=== PATIENT | female | born 1970 | race Caucasian/White ===

== ENCOUNTER 2019-06-22 07:26 | Outpatient (CLI) | payer OTHER, SELFPAY ==
[2019-06-22 08:23] LABS: Basophils Absolute Auto 0.1 K/mm3 (0.0-0.1); Basophils Percent Auto 0.7 % (0.2-1.2); Eosinophils Absolute Auto 0.1 K/mm3 (0-0.3); Eosinophils Percent Auto 1.1 % (0-4.4); Hematocrit 41.7 % (37.0-47.0); Hemoglobin 13.9 g/dL (12.0-15.0); Immature Granulocyte Absolute 0.03 K/mm3 (0.00-0.031); Immature Granulocyte Percent A 0.3 % (0-0.5); Lymphocytes Absolute Auto 2.85 K/mm3 (0.9-3.2); Lymphocytes Percent Auto 25.2 % (18.3-44.2); Mean Corpuscular HGB Conc 33.3 g/dl (32-36); Mean Corpuscular Hemoglobin 31.2 pg (26-34); Mean Corpuscular Volume 93.7 fl (80-100); Mean Platelet Volume 10.1 fl (7.4-10.4); Monocytes Absolute Auto 0.5 K/mm3 (0.1-0.6); Monocytes Percent Auto 4.4 % (2.6-8.5); Neutrophils Absolute Auto 7.7 K/mm3 (1.3-6.7); Neutrophils Percent Auto 68.3 % (45.5-73.1); Platelet Count Result 305 k/mm3 (150-375); Red Blood Count 4.45 M/mm3 (4.2-5.4); Red Cell Distribution Width 13.2 % (11.5-14.5); White Blood Count 11.3 K/mm3 (4.5-10.0)
[2019-06-22 08:41] LABS: Alanine Aminotransferase 19 U/L (4-35); Albumin Level 4.8 g/dL (3.5-5.1); Alkaline Phosphatase 51 U/L (38-126); Aspartate Amino Transferase 24 U/L (14-36); Bilirubin,Total 0.5 mg/dL (0.2-1.3); Blood Urea Nitrogen 18 mg/dL (7-17); Carbon Dioxide 25 mmol/L (22-30); Chloride 100 mmol/L (98-107); Cholesterol 204 mg/dL (0-200); Estimated Glomerular Filt Rate > 60; Glucose 101 mg/dL (65-105); HDL Direct 62 mg/dL; Potassium 3.8 mmol/L (3.4-5.0); Sodium 141 mmol/L (137-145); Triglycerides 157 mg/dL (<150)
[2019-06-22 08:52] LABS: LDL Cholesterol Direct 111 mg/dL
[2019-06-22 08:58] LABS: Hemoglobin A1C 5.5 % (<5.7)
[2019-06-22 09:10] LABS: Thyroid Stimulating Hormone 0.997 uIU/mL (0.465-4.680)
[2019-06-22 09:12] LABS: Creatinine Urine 137.9 mg/dL
[2019-06-22 09:17] LABS: Microalbumin Urine Random 9.7 mg/L (0-16.7)
[2019-06-22 09:28] LABS: Vitamin D 25 Hydroxy 41.3 ng/mL
== END 2019-06-22 07:27 | disposition home or self-care (01) ==
PROVIDERS: PCP Internal Medicine; Visit Provider Internal Medicine
DX: F41.9 Anxiety disorder, unspecified (principal); F32.9 Major depressive disorder, single episode, unspecified; I10 Essential (primary) hypertension; R73.01 Impaired fasting glucose; Z79.899 Other long term (current) drug therapy
CPT/HCPCS: 36415; 80053; 80061; 82043; 82306; 83036; 84443; 85025

== ENCOUNTER 2019-09-01 18:57 | Emergency (ER) | payer OTHER, SELFPAY ==
--- NOTE | ~2019-09-01 | XR_ITS ---
EXAMINATION: XR elbow LT min 3V EXAM DATE: 09/01/2019 19:32 INDICATION: No known recent injury provided at this time. Pain of the left elbow. Symptoms one month . TECHNIQUE: Left elbow frontal, lateral with flexion, and oblique projections obtained and reviewed. There is no prior study for comparison. FINDINGS: Left elbow anterior humeral line intact. There are no acute fractures or dislocations callie ntified. There is no subcutaneous gas. The soft tissue is unremarkable. There are no radiopaque f oreign bodies. IMPRESSION: 1. Unremarkable left elbow exam. Reviewed, dictated and finalized at location A.
[2019-09-01 19:08] VITALS: BP 120/69; PULSE 85; RESP 18; TEMP 37.7; O2SAT 99
--- NOTE | 2019-09-01 19:09 | ED.GENADULT ---
HPI - General Adult General Chief complaint: Extremity Injury, Upper Stated complaint: elbow Source: patient and RN notes reviewed Mode of arrival: ambulatory Limitations: no limitations History of Present Illness HPI narrative: This is a 49 years old female presents to the office for an evaluation of left elbow pain for 1 month. Pain is getting worse over time with tingling and numbness in her fingers at times. Pain is worse when she moves her arm however it feels better when she flexes at her elbow and bring it close to her chest. Denies any injury or trauma that she recalls. Denies previous injury or surgery. She has been trying many [id number]-tiy-[id number] including her leftover prescription [place] for pain with no relief. 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 She is right-hand dominant. Related Data Home Medications Medication Instructions Recorded Confirmed lisinopril-hydrochlorothiazide 1 tablet DAILY 05/22/19 05/22/19 albuterol sulfate 90 mcg/actuation 2 puff INHALATION Q4-6H PRN gm 06/17/19 aerosol inhaler amitriptyline 10 mg tablet 10 mg PO DAILY tablet 06/17/19 esomeprazole magnesium 20 mg 20 mg PO DAILY 06/17/19 capsule,delayed release loratadine 10 mg capsule 10 mg PO DAILY 06/17/19 multivitamin 1 tablet PO DAILY 06/17/19 simethicone 125 mg capsule 125 mg PO DAILY PRN 06/17/19 Allergies Allergy/AdvReac Type Severity Reaction Status Date / Time aspirin Allergy Unknown Swelling Verified 06/20/19 11:35 Review of Systems Review of Systems: Narrative: CONSTITUTIONAL: Denies feeling ill CARDIOVASCULAR: Denies chest pain RESPIRATORY: Denies dyspnea GASTROINTESTINAL: Denies nausea, vomiting SKIN: Denies rash/skin lesions MUSCULOSKELETAL: Reports left elbow pain especially with movenment; pain radiated up and down her arm. NEUROLOGIC: Reports tingling in all of her fingers at times. [facility], [facility] Past Medical History Medical History Anxiety Arthritis Bronchitis Chronic back pain GERD (gastroesophageal reflux disease) Hypertension IBS (irritable bowel syndrome) Kidney stones Polycystic ovarian disease Seasonal allergies Strain of right gastrocnemius muscle (~02/2019) Surgical History Surgical History History of cholecystectomy History of hysterectomy Family History Family History Mother Patient's mother is in good health Family history of cardiovascular disease Family history of arthritis Family history of atrial fibrillation Father Patient's father is in good health Family history of lymphoma Hypertension Family history of cardiovascular disease Acute myocardial infarction Family history of arthritis Social History Social History Smoking status: Former smoker Alcohol intake: never Comments At time of signature, I agree with nursing past medical, surgical, social and family history. There is no relevant family history pertinent to the presenting complaint. Exam Narrative: Exam Narrative: GENERAL: This is a well-nourished, well-developed patient, in no apparent distress. NEURO: awake, alert, and oriented to person, place and time. There were no obvious focal neurologic abnormalities. EXTREMITIES: The left shoulder is without obvious asymmetry or deformity when comparing to right shoulder. No surface trauma, ecchymosis, crepitus. No bony deformity of the humerus head. No erythema, warmth, swelling to palpate. Nontender to palpate over the clavicle, A to C joint, acromion, scapula, or humeral head. Nontender to palpations of the bicipital groove or soft tissue. Nontender to palpation of of the muscles of the sternocleidomastoid, pectoris, biceps/triceps, deltoid, trapezius, rhomboid, latissimus dorsi is, or rotator cuff. No pain or limitation with active or passive abdu
== END 2019-09-01 20:09 | disposition home or self-care (01) ==
PROVIDERS: Emergency Provider Nurse Practitioner; PCP Internal Medicine
DX: M25.522 Pain in left elbow (principal); F41.9 Anxiety disorder, unspecified; M19.90 Unspecified osteoarthritis, unspecified site; K21.9 Gastro-esophageal reflux disease without esophagitis; I10 Essential (primary) hypertension; K58.9 Irritable bowel syndrome, unspecified; Z87.442 Personal history of urinary calculi; E28.2 Polycystic ovarian syndrome; Z87.891 Personal history of nicotine dependence
CPT/HCPCS: 73080; 99213; A4565; G0463

== ENCOUNTER 2019-10-07 09:26 | Outpatient (CLI) | payer OTHER, SELFPAY ==
[2019-10-07 10:04] LABS: Blood Urea Nitrogen 12 mg/dL (7-17); Carbon Dioxide 26 mmol/L (22-30); Chloride 105 mmol/L (98-107); Creatine Kinase 74 U/L (30-135); Estimated Glomerular Filt Rate > 60; Glucose 103 mg/dL (65-105); Potassium 3.5 mmol/L (3.4-5.0); Sodium 137 mmol/L (137-145)
[2019-10-07 12:17] LABS: Erythrocyte Sedimentation Rate 24 mm/hr (0-20)
== END 2019-10-07 09:27 | disposition home or self-care (01) ==
PROVIDERS: PCP Internal Medicine; Visit Provider Internal Medicine
DX: M77.9 Enthesopathy, unspecified (principal)
CPT/HCPCS: 36415; 80048; 82550; 85652; 86038; 86141

== ENCOUNTER 2019-10-09 09:47 | Emergency (ER) | payer OTHER, SELFPAY ==
--- NOTE | ~2019-10-09 | XR_ITS ---
XR abdomen/kub 1V 10/09/2019 10:32 INDICATION: Flank pain TECHNIQUE: KUB COMPARISON: None FINDINGS: Bowel gas pattern is normal. There is no evidence of free air, mass, organomegaly, ascites or obstruction. There are multiple pelvic calcifications. Distal ureteral stone cannot be excluded. The bones appear intact. IMPRESSION: 1: Pelvic calcifications. Distal ureteral stone not excluded.. Reviewed, dictated and finalized at location A.
--- NOTE | 2019-10-09 10:01 | ED.GENADULT ---
HPI - General Adult General Chief complaint: Urogenital-Female Stated complaint: uti Time Seen by Provider: 10/09/19 10:12 Source: patient Mode of arrival: ambulatory Limitations: no limitations History of Present Illness HPI narrative: 49-year-old female patient presents to the [facility] with complaints of urinary symptoms that started last night. Patient states that she noticed that she had increase in urgency of urination last night. Patient states about 2:00 in the morning she noticed some pink-tinged urine. Patient states that now is when she bleeds and full on bright red blood. Patient states that she is having some suprapubic pain, pain with urination, as well as some right-sided flank pain. Patient does have history of kidney stones but states her last kidney stones was probably about over a year ago. Patient denies any fevers, nausea, vomiting or diarrhea. Patient denies taking anything for pain prior to arrival. Related Data Home Medications Medication Instructions Recorded Confirmed esomeprazole magnesium 20 mg 20 mg PO DAILY 06/17/19 10/09/19 capsule,delayed release loratadine 10 mg capsule 10 mg PO DAILY 06/17/19 10/09/19 multivitamin 1 tablet PO DAILY 06/17/19 10/09/19 simethicone 125 mg capsule 125 mg PO DAILY PRN 06/17/19 10/09/19 Allergies Allergy/AdvReac Type Severity Reaction Status Date / Time aspirin Allergy Unknown Swelling Verified 10/09/19 10:12 Review of Systems Review of Systems: Narrative: CONSTITUTIONAL: Denies fever, chills, or sweats. EYES: Denies visual changes, redness, or discharge. ENT: Denies rhinorrhea, congestion, sore throat, or otalgia. CARDIOVASCULAR: Denies chest pain, palpitations, or edema. RESPIRATORY: Denies cough or dyspnea. GASTROINTESTINAL: Denies abdominal pain, nausea, vomiting, or diarrhea. GENITOURINARY: Positive dysuria, positive hematuria. Positive pain with urination, positive urinary frequency. Positive right-sided flank pain SKIN: Denies rash or itching. MUSCULOSKELETAL: Denies back pain, joint pain, or myalgia. NEUROLOGIC: Denies headache, numbness, or weakness. PSYCHIATRIC: Denies anxiety or depression. [facility] Past Medical History Medical History Anxiety Arthritis Bronchitis Chronic back pain GERD (gastroesophageal reflux disease) Hypertension IBS (irritable bowel syndrome) Kidney stones Polycystic ovarian disease Seasonal allergies Strain of right gastrocnemius muscle (~02/2019) Surgical History Surgical History History of cholecystectomy History of hysterectomy Family History Family History Mother Patient's mother is in good health Family history of cardiovascular disease Family history of arthritis Family history of atrial fibrillation Father Patient's father is in good health Family history of lymphoma Hypertension Family history of cardiovascular disease Acute myocardial infarction Family history of arthritis Social History Social History Smoking status: Former smoker Alcohol intake: never Gender identity (if verbalized by the patient): Female Comments At the time of my signature I agree with nursing past medical history, surgical, social, and family history. There is no relevant family history pertinent to the presenting complaint. Exam Narrative: Exam Narrative: GENERAL: Well-appearing, well-nourished, and in no acute distress. HEAD: Normocephalic, atraumatic. EYES: PERRLA and EOMI. ENT: Nares clear, no rhinorrhea or epistaxis. Mucous membranes moist. NECK: Supple. No lymphadenopathy CHEST: Clear to auscultation. No respiratory distress. HEART: Regular rate and rhythm. No murmur heard. Normal peripheral pulses. ABDOMEN: Soft, flat, nondistended. No guarding, rebound tenderness, or rigid. No puls
[2019-10-09 10:11] VITALS: BP 136/77; PULSE 90; RESP 16; TEMP 36.9; O2SAT 100
== END 2019-10-09 11:00 | disposition home or self-care (01) ==
PROVIDERS: Emergency Provider Nurse Practitioner Family; PCP Internal Medicine
DX: N20.0 Calculus of kidney (principal); N30.01 Acute cystitis with hematuria; Z87.442 Personal history of urinary calculi; I10 Essential (primary) hypertension
CPT/HCPCS: 74018; 81003; 87077; 87086; 87088; 87186; 99213; G0463

== ENCOUNTER 2019-10-25 07:33 | Outpatient (CLI) | payer OTHER, SELFPAY ==
[2019-10-25 08:50] LABS: Rheumatoid Factor < 8.6 IU/ML (<12)
[2019-10-28 21:59] LABS: Anti Cyclic Citrullinated Pept <16 Units (<20)
== END 2019-10-25 07:34 | disposition home or self-care (01) ==
LOC: ANHLAB 07:34
PROVIDERS: PCP Internal Medicine; Visit Provider Internal Medicine
DX: M19.90 Unspecified osteoarthritis, unspecified site (principal)
CPT/HCPCS: 36415; 86200; 86430

== ENCOUNTER 2019-11-14 20:14 | Emergency (ER) | payer OTHER, SELFPAY ==
[2019-11-14 20:23] VITALS: BP 159/92; PULSE 107; RESP 18; TEMP 36.9; O2SAT 97
--- NOTE | 2019-11-14 21:19 | ED.GENADULT ---
HPI - General Adult General Chief complaint: Wound/Laceration Stated complaint: thumb lac Time Seen by Provider: 11/14/19 20:56 Source: patient Mode of arrival: ambulatory Limitations: no limitations History of Present Illness HPI narrative: Patient is a 49-year-old female who presents with laceration of the base of the thumb cut the thumb with a kitchen knife while cooking notes mild aching pain worse with touch and activity is unsure as to tetanus status denies radicular symptoms or paresthesias Related Data Home Medications Medication Instructions Recorded Confirmed esomeprazole magnesium 20 mg 20 mg PO DAILY 06/17/19 10/09/19 capsule,delayed release loratadine 10 mg capsule 10 mg PO DAILY 06/17/19 10/09/19 multivitamin 1 tablet PO DAILY 06/17/19 10/09/19 simethicone 125 mg capsule 125 mg PO DAILY PRN 06/17/19 10/09/19 Allergies Allergy/AdvReac Type Severity Reaction Status Date / Time aspirin Allergy Unknown Swelling Verified 11/14/19 20:25 Review of Systems Review of Systems: Narrative: CONSTITUTIONAL: Denies fever, chills, or sweats. SKIN: Laceration thumb MUSCULOSKELETAL: Denies joint pain, or myalgia. NEUROLOGIC: Denies numbness,tingling PMFSH Past Medical History Medical History Anxiety Arthritis Bronchitis Chronic back pain GERD (gastroesophageal reflux disease) Hypertension IBS (irritable bowel syndrome) Kidney stones Polycystic ovarian disease Seasonal allergies Strain of right gastrocnemius muscle (~02/2019) Surgical History Surgical History History of cholecystectomy History of hysterectomy Social History Social History Smoking status: Former smoker Alcohol intake: never Gender identity (if verbalized by the patient): Female Exam Narrative: Exam Narrative: GENERAL: Well-appearing, well-nourished, and in no acute distress. HEAD: Normocephalic, atraumatic. EYES: PERRLA and EOMI. ENT: Nares clear, no rhinorrhea or epistaxis. Mucous membranes moist. EXTREMITIES: Normal range of motion. No edema. SKIN: Warm, dry, no rash. 1 cm laceration of the base of the left thumb NEURO: No focal deficits. Alert and oriented x3. Neurovascularly intact. Capillary refill less than 2 seconds PSYCH: Normal mood and affect. Course Course Emergency Course: Patient in the room in no distress aware of case findings treatment plan and diagnosis Vital Signs Vital signs: Vital Signs Temperature 98.4 F 11/14/19 20:23 Pulse Rate 107 H 11/14/19 20:23 Respiratory Rate 18 11/14/19 20:23 Blood Pressure 159/92 H 11/14/19 20:23 Pulse Oximetry 97 11/14/19 20:23 Temperature 98.4 F 11/14/19 20:23 Pulse Rate 107 H 11/14/19 20:23 Respiratory Rate 18 11/14/19 20:23 Blood Pressure 159/92 H 11/14/19 20:23 Pulse Oximetry 97 11/14/19 20:23 Procedures Laceration Laceration 1: Date: 11/14/19 Time: 21:21 Site: upper extremity Side (If applicable): left Size (cm): 1.5 Description: linear Depth: simple, single layer Local Anesthetic: lidocaine 1% Pre-repair: wound explored, irrigated and irrigated extensively ====== Skin Level ====== Skin layer closed with: nylon Size (cm): 5-0 Number of sutures: 2 Technique: simple, interrupted ====== Subcutaneous Layer ====== ====== Muscle Layer ====== ====== Tendon Layer ====== Medical Decision Making MDM Narrative Medical decision making narrative: Patients injury or pain is consistent with musculoskeletal etiology. No signs of neurological or vascular compromise on exam. Compartments and tisues are soft without signs of compartment syndrome. Pain is felt appropriate for further evaluation on an outpatient basis. Vital Signs Vital Signs: Vital Signs Temper
[2019-11-14] MEDS: TETANUS,DIPHTHERIA,AC PERTUSSIS ADULT (0.5 ML) BOOSTRIX (21:44)
== END 2019-11-14 21:47 | disposition home or self-care (01) ==
PROVIDERS: Emergency Provider Emergency Medicine; PCP Internal Medicine
DX: S61.012A Laceration without foreign body of left thumb without damage to nail, initial encounter (principal); F41.9 Anxiety disorder, unspecified; M19.90 Unspecified osteoarthritis, unspecified site; K21.9 Gastro-esophageal reflux disease without esophagitis; G89.29 Other chronic pain; I10 Essential (primary) hypertension; W26.0XXA Contact with knife, initial encounter; Z23 Encounter for immunization
CPT/HCPCS: 12001; 90471; 90715; 99282

== ENCOUNTER 2019-11-25 14:09 | Outpatient (CLI) | payer OTHER, SELFPAY ==
--- NOTE | ~2019-11-25 | XR_ITS ---
XR foot LT standing 2V DATE: 11/25/2019 15:31 INDICATION: Polyarticular osteoarthritis TECHNIQUE: Weightbearing AP and lateral views COMPARISON: None FINDINGS: Mild plantar calcaneal enthesopathy. No fracture, dislocation, periosteal reaction or bone destruction. IMPRESSION: Mild plantar calcaneal enthesopathy Reviewed, dictated and finalized at location A.
--- NOTE | ~2019-11-25 | XR_ITS ---
XR lumbar spine 2-3V DATE: 11/25/2019 15:31 INDICATION: Generalized low back pain. Osteoarthritis. TECHNIQUE: AP, lateral and coned lateral lumbosacral views COMPARISON: None FINDINGS: There is mild dextro scoliosis of the lower thoracic and lumbar spine. There is a transitional lumbosacral vertebra sacralization on the left. No fracture or bone destruction is evident. The included lower thoracic and lumbar pedicles are intac t. There is minimal degenerative spurring of the lumbar spine. Lumbar interspaces are relatively pres erved. The sacroiliac joints appear normal. Surgical clips overlie the right upper quadrant, likely due to cholecystectomy. IMPRESSION: Transitional lumbosacral vertebra; this may be a source of chronic low back pain Mild dextro scoliosis Minimal degenerative spurring Reviewed, dictated and finalized at location A.
--- NOTE | ~2019-11-25 | XR_ITS ---
XR foot RT standing 2V DATE: 11/25/2019 15:30 INDICATION: Foot pain. Osteoarthritis TECHNIQUE: Weightbearing AP and lateral views COMPARISON: None FINDINGS: There is hypertrophic bone formation between the bases of the first and second metatarsal b ones. There is mild osteoarthritis at the first metatarsophalangeal joint. No fracture, dislocation, periosteal reaction or bone destruction. IMPRESSION: Mild osteophyte is at the first metatarsophalangeal joint Focal hyperostosis between the bases of the first and second metatarsal bones Reviewed, dictated and finalized at location A.
--- NOTE | ~2019-11-25 | XR_ITS ---
EXAMINATION: XR hand BI arthritis min 3V DATE: 11/25/2019 15:31 INDICATION: Unspecified osteoarthritis, unspecified site. TECHNIQUE: 4 views of right hand and 4 views of left hand on 7 radiographs were obtained. COMPARISON: None. FINDINGS: RIGHT HAND: Bone alignment is normal. No fracture. There is mild osteoarthritis of first interphalang eal joint and third distal interphalangeal joint. LEFT HAND: Bone alignment is normal. No fracture. Joint spaces are well maintained. IMPRESSION: 1. Mild polyarticular osteoarthritis. Reviewed, dictated and finalized at location A.
[2019-11-25 15:12] LABS: Basophils Absolute Auto 0.1 K/mm3 (0.0-0.1); Basophils Percent Auto 0.6 % (0.2-1.2); Eosinophils Absolute Auto 0.2 K/mm3 (0-0.3); Eosinophils Percent Auto 2.1 % (0-4.4); Hematocrit 36.7 % (37.0-47.0); Hemoglobin 12.4 g/dL (12.0-15.0); Immature Granulocyte Absolute 0.04 K/mm3 (0.00-0.031); Immature Granulocyte Percent A 0.4 % (0-0.5); Lymphocytes Percent Auto 25.5 % (18.3-44.2); Mean Corpuscular HGB Conc 33.8 g/dl (32-36); Mean Corpuscular Hemoglobin 31.7 pg (26-34); Mean Corpuscular Volume 93.9 fl (80-100); Mean Platelet Volume 9.7 fl (7.4-10.4); Monocytes Absolute Auto 0.6 K/mm3 (0.1-0.6); Neutrophils Absolute Auto 6.7 K/mm3 (1.3-6.7); Neutrophils Percent Auto 65.4 % (45.5-73.1); Platelet Count Result 308 k/mm3 (150-375); Red Blood Count 3.91 M/mm3 (4.2-5.4); Red Cell Distribution Width 12.9 % (11.5-14.5); White Blood Count 10.2 K/mm3 (4.5-10.0)
[2019-11-25 15:34] LABS: Alanine Aminotransferase 16 U/L (4-35); Albumin Level 4.4 g/dL (3.5-5.1); Alkaline Phosphatase 54 U/L (38-126); Aspartate Amino Transferase 26 U/L (14-36); Bilirubin,Total 0.1 mg/dL (0.2-1.3); Blood Urea Nitrogen 14 mg/dL (7-17); Calcium 9.5 mg/dL (8.4-10.2); Carbon Dioxide 25 mmol/L (22-30); Chloride 102 mmol/L (98-107); Estimated Glomerular Filt Rate > 60; Glucose 99 mg/dL (65-105); Potassium 3.7 mmol/L (3.4-5.0); Sodium 136 mmol/L (137-145); Uric Acid 4.8 mg/dL (2.5-7.5)
[2019-11-25 15:48] LABS: Erythrocyte Sedimentation Rate 36 mm/hr (0-20)
[2019-11-30 04:21] LABS: Thyroglobulin 5.1 ng/mL (2.8-40.9); Thyroglobulin Antibodies <1 IU/mL (<=1); Thyroid Peroxidase Antibodies 3 IU/mL (<9)
[2019-11-30 11:53] LABS: Angiotensin Converting Enzyme 11 U/L (9-67)
[2019-11-30 23:31] LABS: SS-A <1.0; SS-B <1.0
[2019-12-01 21:10] LABS: ANCA Screen Negative (Negative); Myeloperoxidase Ab <1.0 AI (<1.0); Proteinase-3 Ab <1.0 AI (<1.0); S cerevisiae Ab (IgA) 12.8 U (<=20.0); S cerevisiae Ab (IgG) 14.8 U (<=20.0)
[2019-12-26 14:19] LABS: SM Antibody <1.0
[2019-12-26 14:20] LABS: SM/RNP Antibody <1.0
== END 2019-11-25 14:10 | disposition home or self-care (01) ==
PROVIDERS: PCP Internal Medicine; Visit Provider Internal Medicine
DX: M15.9 Polyosteoarthritis, unspecified (principal); M47.819 Spondylosis without myelopathy or radiculopathy, site unspecified; M77.32 Calcaneal spur, left foot; M85.871 Other specified disorders of bone density and structure, right ankle and foot; M53.87 Other specified dorsopathies, lumbosacral region; M41.86 Other forms of scoliosis, lumbar region
CPT/HCPCS: 36415; 72100; 73130; 73620; 80053; 82164; 84432; 84550; 85025; 85652; 86021; 86140; 86225; 86235; 86376; 86671; 86800

== ENCOUNTER 2019-12-06 01:50 | Emergency (ER) | payer OTHER, SELFPAY ==
--- NOTE | ~2019-12-06 | CT_ITS ---
EXAMINATION: CT abdomen pelvis wo con DATE: 12/06/2019 02:36 INDICATION: Bilateral flank pain, hematuria, difficulty urinating. History of kidney stones. TECHNIQUE: Computed tomography (CT) of the abdomen and pelvis was performed without intravenous contr ast. Automated exposure control and iterative reconstruction technique were employed. Exam dose: 193 .28 mGy-cm total exam DLP. COMPARISON: 11/02/2018 CT abdomen pelvis FINDINGS: The lung bases are clear. Normal heart size. No pericardial or pleural effusion. Status post cholecystectomy. The liver, spleen, pancreas, adrenal glands and kidneys are unremarkable except for a 2 mm lower pole right renal calculus. No bile duct or pancreatic duct dilatation. The u rinary bladder appears normal. Status post hysterectomy. Mild colonic diverticulosis; no CT evidence of diverticulitis. No bowel obstruction, bowel wall thick ening, pneumatosis or free peritoneal free air. Normal caliber of the abdominal aorta. No intraperitoneal or retroperitoneal or pelvic mass lesion or adenopathy or ascites. Transitional lumbosacral vertebra. IMPRESSION: Nonobstructing 2 mm lower pole right renal calculus Status post cholecystectomy Status post hysterectomy Reviewed, dictated and finalized at Location [facility]. Reviewed, dictated and finalized at location A.
[2019-12-06 01:53] VITALS: BP 150/101; PULSE 115; RESP 19; TEMP 36.5; O2SAT 98
--- NOTE | 2019-12-06 02:05 | ED.ABDPAIN ---
HPI - Abdominal Pain General Chief Complaint: Abdominal Pain Stated Complaint: Kidney stone Time Seen by Provider: 12/06/19 01:56 History of Present Illness HPI narrative: Pain in the lower back and abdomen since last evening. Associated with hematuria and dysuria. She believes that she has a kidney stone. She says that she had similar symptoms a month ago and had one then. On chart review she never had the diagnosis confirmed at that time, she had a calcification on a KUB and kidney stone could not be ruled out. Related Data Home Medications Medication Instructions Recorded Confirmed esomeprazole magnesium 20 mg 20 mg PO DAILY 06/17/19 11/22/19 capsule,delayed release loratadine 10 mg capsule 10 mg PO DAILY 06/17/19 11/22/19 multivitamin 1 tablet PO DAILY 06/17/19 11/22/19 simethicone 125 mg capsule 125 mg PO DAILY PRN 06/17/19 11/22/19 Allergies Allergy/AdvReac Type Severity Reaction Status Date / Time aspirin Allergy Unknown Swelling Verified 11/22/19 11:13 Review of Systems Review of Systems: All systems reviewed & are unremarkable except as noted in HPI and below Constitutional: Constitutional: Denies fever(s) Cardiovascular: Cardiovascular: Denies chest pain Respiratory: Respiratory: Denies dyspnea Gastrointestinal: Gastrointestinal: Reports abdominal pain Genitourinary: Genitourinary: Reports hematuria, Reports nocturia and Reports dysuria Musculoskeletal: Musculoskeletal: Reports back pain Neurologic: Denies weakness [facility] Past Medical History Medical History Anxiety Arthritis Bronchitis Chronic back pain GERD (gastroesophageal reflux disease) Hypertension IBS (irritable bowel syndrome) Inflammatory arthritis (~2018) Kidney stones Polycystic ovarian disease Seasonal allergies Strain of right gastrocnemius muscle (~02/2019) Surgical History Surgical History History of cholecystectomy History of hysterectomy Family History Family History Mother Patient's mother is in good health Family history of cardiovascular disease Family history of arthritis Family history of atrial fibrillation Father Patient's father is in good health Family history of lymphoma Hypertension Family history of cardiovascular disease Acute myocardial infarction Family history of arthritis Social History Social History Smoking status: Former smoker Alcohol intake: never Gender identity (if verbalized by the patient): Female Exam Const: General: healthy appearing, no acute distress and alert Orientation/consciousness: patient oriented x3 HENMT: Head: normal to inspection Neck: Neck: normal visual inspection and no lymphadenopathy Chest: Chest palpation & inspection: no tenderness Resp: Effort & Inspection: normal respiratory effort Auscultation: clear to auscultation bilaterally, no rales, no rhonchi and no wheezes Cardio: Jugular venous distension: no JVD Rate: regular rate Rhythm: regular rhythm Heart sounds: no murmurs GI: Inspection: non-distended GI Palp: Yes Soft to palpation and Yes Tenderness to palpation present (GI) Skin: General skin exam: normal color Neuro: General: patient oriented x3 and moves all extremities Speech: normal speech Extrem: General: no edema Psych: Appearance: well kempt Affect: normal affect Course Vital Signs Vital signs: Vital Signs Temperature 36.5 C 12/06/19 01:53 Pulse Rate 115 H 12/06/19 01:53 Respiratory Rate 19 12/06/19 01:53 Blood Pressure 150/101 H 12/06/19 01:53 Pulse Oximetry 98 12/06/19 01:53 Temperature 36.8 C 12/06/19 03:09 Pulse Rate 81 12/06/19 05:05 Respiratory Rate 20 12/06/19 05:05 Blood Pressure 125/82 12/06/19 05:05 Pulse Oximetry 100 12/06/19 05:05
[2019-12-06 02:17] LABS: Add Urine Microscopic? YES; Appearance Urine Cloudy (Clear); Bilirubin Urine Negative (Negative); Blood Urine 3+ (Negative); Glucose Urine UA 1+ mg/dL (Negative); Ketones Urine Negative (Negative); Leukocyte Esterase Ur 1+ LEU/UL (Negative); Nitrate Urine Negative (Negative); Protein Urine 2+ mg/dL (Negative); RBC Urine >75 /hpf (0-2); Specific Grav Ur 1.024 (1.001-1.035); Squamous Epithelial Cell Urine Many /hpf (Few); Urobilinogen Urine Negative mg/dL (<2.0); WBC Clumps Urine Present /HPF; WBC Urine 16-20 /hpf
[2019-12-06 02:19] LABS: Color Urine Dark Red (Yellow)
[2019-12-06 02:23] LABS: Basophils Absolute Auto 0.1 K/mm3 (0.0-0.1); Basophils Percent Auto 0.4 % (0.2-1.2); Eosinophils Absolute Auto 0.3 K/mm3 (0-0.3); Eosinophils Percent Auto 1.4 % (0-4.4); Immature Granulocyte Absolute 0.09 K/mm3 (0.00-0.031); Immature Granulocyte Percent A 0.5 % (0-0.5); Lymphocytes Absolute Auto 2.58 K/mm3 (0.9-3.2); Lymphocytes Percent Auto 13.6 % (18.3-44.2); Mean Corpuscular HGB Conc 34.2 g/dl (32-36); Mean Corpuscular Hemoglobin 32.2 pg (26-34); Mean Corpuscular Volume 94.1 fl (80-100); Mean Platelet Volume 9.3 fl (7.4-10.4); Monocytes Absolute Auto 0.8 K/mm3 (0.1-0.6); Monocytes Percent Auto 4.4 % (2.6-8.5); Neutrophils Absolute Auto 15.1 K/mm3 (1.3-6.7); Neutrophils Percent Auto 79.7 % (45.5-73.1); Platelet Count Result 346 k/mm3 (150-375); Red Blood Count 4.04 M/mm3 (4.2-5.4); Red Cell Distribution Width 12.5 % (11.5-14.5); White Blood Count 18.9 K/mm3 (4.5-10.0)
[2019-12-06 02:58] LABS: Alanine Aminotransferase 26 U/L (4-35); Albumin Level 4.4 g/dL (3.5-5.1); Alkaline Phosphatase 54 U/L (38-126); Anion Gap 11.3 mmol/L (7-16); Aspartate Amino Transferase 30 U/L (14-36); Bilirubin,Total 0.3 mg/dL (0.2-1.3); Blood Urea Nitrogen 14 mg/dL (7-17); Calcium 9.5 mg/dL (8.4-10.2); Carbon Dioxide 26 mmol/L (22-30); Chloride 103 mmol/L (98-107); Estimated Glomerular Filt Rate > 60; Glucose 110 mg/dL (65-105); Lipase 97 U/L (23-300); Potassium 3.3 mmol/L (3.4-5.0); Sodium 137 mmol/L (137-145)
[2019-12-06 03:09] VITALS: BP 141/96; PULSE 96; RESP 18; TEMP 36.8; O2SAT 100
[2019-12-06 03:15] VITALS: BP 137/91; PULSE 94; RESP 18; O2SAT 100
[2019-12-06] MEDS: SODIUM CHLORIDE 0.9% IV 1,000 ML 999 ML IV CONT (03:15)
[2019-12-06] MEDS: NITROFURANTOIN MONOHYD MACROCR 100 MG CAP PO (04:07)
[2019-12-06] MEDS: KETOROLAC 30 MG/ML VIAL (*BKC) IV PUSH (04:08)
[2019-12-06] MEDS: PHENAZOPYRIDINE HCL 100 MG TABLET 200 MG PO (04:19)
[2019-12-06 05:05] VITALS: BP 125/82; PULSE 81; RESP 20; O2SAT 100
== END 2019-12-06 05:05 | disposition home or self-care (01) ==
PROVIDERS: Emergency Provider Emergency Medicine; PCP Internal Medicine
DX: N30.01 Acute cystitis with hematuria (principal); M19.90 Unspecified osteoarthritis, unspecified site; K21.9 Gastro-esophageal reflux disease without esophagitis; I10 Essential (primary) hypertension; K58.9 Irritable bowel syndrome, unspecified; Z87.442 Personal history of urinary calculi; E28.2 Polycystic ovarian syndrome; Z87.891 Personal history of nicotine dependence
CPT/HCPCS: 36415; 74176; 80053; 81001; 81025; 83690; 85025; 87077; 87086; 87088; 87186; 96361; 96374; 96375; 99284; A9270; J1885; J3010; J7030

== ENCOUNTER 2020-03-30 08:26 | Emergency (ER) | payer OTHER, SELFPAY ==
[2020-03-30] VITALS (7 sets, daily range): BP systolic 105–130; BP diastolic 64–86; PULSE 84–126; RESP 12–18; TEMP 36.6; O2SAT 95–100
--- NOTE | ~2020-03-30 | CT_ITS ---
EXAMINATION: CT abdomen pelvis w con EXAM DATE: 03/30/2020 10:53 INDICATION: Lower abdominal pain. Nausea and vomiting. TECHNIQUE: Spiral CT of the abdomen and pelvis was performed following intravenous injection of 100 m L Omnipaque 350. Axial, coronal and sagittal images were reviewed. The dose-length product (DLP) fo r this examination was 371.52 mGy-cm. The exposure was tailored according to patient size (auto mA e xposure control), and iterative reconstruction (ASIR) was used as additional dose reduction technique . Comparison is made to prior examination from 12/06/2019. FINDINGS: The liver, spleen, adrenal glands and pancreas are unremarkable. There are cholecystectomy clips. Portal and splenic veins are patent. Kidneys enhance symmetrically. There is no hydronephr osis. Probable 2 mm right inferior calyceal stone. The uterus is not identified and has likely been surgically resected. The ovaries are unremarkable. The bladder is unremarkable. There is no retrope ritoneal or pelvic lymphadenopathy. The appendix is normal. The stomach and small bowel are unremarkable. There is colonic fluid, corre late for diarrhea. There is mild scattered colonic diverticulosis. There is no adjacent inflammatory change to suggest diverticulitis. No free intraperitoneal gas. The heart is normal in size. Ther e are no pericardial or pleural effusions. The lung bases are unremarkable. There are no osteoblast ic or osteolytic lesions identified. IMPRESSION: 1. Colonic fluid, correlate for diarrhea. 2. Probable punctate right nephrolithiasis. 3. No acute finding Reviewed, dictated and finalized at location A. [employer]ING [employer] W[employer]ER
--- NOTE | 2020-03-30 09:03 | ED.NAVMDI ---
HPI - Nausea/Vomiting/Diarrhea General Chief complaint: Nausea/Vomiting/Diarrhea Stated complaint: diarrhea/abd pain Time Seen by Provider: 03/30/20 08:35 Source: patient Mode of arrival: ambulatory Limitations: no limitations History of Present Illness HPI Narrative: This patient is a 50 year old female with history of IBS who presents for evaluation of diarrhea and mid abdominal pain. She states she developed watery diarrhea this morning, and she has had 4 episodes. She denies any blood in her stool. She reports severe constant mid abdominal cramping today. She also noticed intermittent left upper abdominal cramping 2 days ago. She has not taken anything for her symptoms. She denies fever, chills, vomiting. She denies any sick contacts or recent antibiotic use. MD elicited complaint: diarrhea and abdominal pain Related Data Home Medications Medication Instructions Recorded Confirmed esomeprazole magnesium 20 mg 20 mg PO DAILY 06/17/19 03/06/20 capsule,delayed release loratadine 10 mg capsule 10 mg PO DAILY 06/17/19 03/06/20 multivitamin 1 tablet PO DAILY 06/17/19 03/06/20 simethicone 125 mg capsule 125 mg PO DAILY PRN 06/17/19 03/06/20 Allergies Allergy/AdvReac Type Severity Reaction Status Date / Time aspirin Allergy Unknown Swelling Verified 03/30/20 08:37 Review of Systems Review of Systems: All systems reviewed & are unremarkable except as noted in HPI and below Constitutional: Constitutional: Denies chills and Denies fever(s) Gastrointestinal: Gastrointestinal: Reports abdominal pain, Reports diarrhea, Reports nausea and Denies vomiting Genitourinary: Genitourinary: Denies dysuria Musculoskeletal: Musculoskeletal: Denies back pain [facility] Past Medical History Medical History (Updated 03/30/20 @ 12:34 by Shellie Hale MD) Anxiety Arthritis Bronchitis Chronic back pain GERD (gastroesophageal reflux disease) Hypertension IBS (irritable bowel syndrome) Inflammatory arthritis (~2018) Kidney stones Polycystic ovarian disease Seasonal allergies Strain of right gastrocnemius muscle (~02/2019) Surgical History Surgical History History of cholecystectomy History of hysterectomy Family History Family History Mother Patient's mother is in good health Family history of cardiovascular disease Family history of arthritis Family history of atrial fibrillation Father Patient's father is in good health Family history of lymphoma Hypertension Family history of cardiovascular disease Acute myocardial infarction Family history of arthritis Social History Social History Smoking status: Former smoker Alcohol intake: never Gender identity (if verbalized by the patient): Female Exam Const: General: alert Orientation/consciousness: patient oriented x3 HENMT: Head: atraumatic Face and sinus: face symmetric Eyes: EOM: EOMs intact bilaterally Resp: Effort & Inspection: normal respiratory effort and no retractions Auscultation: clear to auscultation bilaterally GI: GI Palp: Yes Soft to palpation, Yes Tenderness to palpation present (GI) (Diffuse), No Guarding due to palpation present (GI) and No Rigid due to palpation Auscultation: normal bowel sounds Skin: General skin exam: normal color Rashes: no rashes Neuro: General: patient oriented x3 and moves all extremities Extrem: General: normal to inspection Course Reevaluation(s) Reevaluation #1: I discussed with patient labs and CT . Date: 03/30/20 Time: 12:31 Vital Signs Vital signs: Vital Signs Temperature 98 F 03/30/20 08:34 Pulse Rate 123 H 03/30/20 08:34 Respiratory Rate 18 03/30/20 08:34 Blood Pressure 130/85 03/30/20 08:34 Pulse Oximetry 99 03/30/20 08:34 Temperature 98 F 03/30/20 09:36 Pulse Rate 84 03/30/20 12:56
[2020-03-30] MEDS: ONDANSETRON INJ 4 MG/2 ML VIAL IV PUSH (09:06)
[2020-03-30] MEDS: SODIUM CHLORIDE 0.9% IV 1,000 ML 999 ML IV CONT (09:06)
[2020-03-30] MEDS: MORPHINE SULFATE (*CRX) 2 MG/ML INJ IV PUSH (09:06)
[2020-03-30 09:14] LABS: Basophils Absolute Auto 0.1 K/mm3 (0.0-0.1); Basophils Percent Auto 0.3 % (0.2-1.2); Eosinophils Absolute Auto 0.2 K/mm3 (0-0.3); Hematocrit 37.5 % (37.0-47.0); Immature Granulocyte Absolute 0.08 K/mm3 (0.00-0.031); Immature Granulocyte Percent A 0.6 % (0-0.5); Lymphocytes Percent Auto 18.7 % (18.3-44.2); Mean Corpuscular HGB Conc 34.7 g/dl (32-36); Mean Corpuscular Hemoglobin 31.9 pg (26-34); Mean Corpuscular Volume 92.1 fl (80-100); Mean Platelet Volume 9.6 fl (7.4-10.4); Monocytes Absolute Auto 0.6 K/mm3 (0.1-0.6); Neutrophils Absolute Auto 10.9 K/mm3 (1.3-6.7); Neutrophils Percent Auto 75.4 % (45.5-73.1); Platelet Count Result 311 k/mm3 (150-375); Red Blood Count 4.07 M/mm3 (4.2-5.4); Red Cell Distribution Width 12.8 % (11.5-14.5); White Blood Count 14.4 K/mm3 (4.5-10.0)
[2020-03-30 09:21] LABS: Add Urine Microscopic? YES; Appearance Urine Cloudy (Clear); Bilirubin Urine Negative (Negative); Blood Urine Negative (Negative); Color Urine Yellow (Yellow); Glucose Urine UA Negative (Negative); Ketones Urine Negative (Negative); Leukocyte Esterase Ur Negative LEU/UL (Negative); Mucus Urine Heavy /lpf; Nitrate Urine Negative (Negative); Protein Urine 1+ mg/dL (Negative); RBC Urine 0-2 /hpf (0-2); Specific Grav Ur 1.025 (1.001-1.035); Squamous Epithelial Cell Urine Many /hpf (Few); Urobilinogen Urine Negative mg/dL (<2.0); WBC Urine 0-3 /hpf
[2020-03-30 09:30] LABS: Alanine Aminotransferase 26 U/L (4-35); Albumin Level 4.7 g/dL (3.5-5.1); Alkaline Phosphatase 56 U/L (38-126); Anion Gap 10 mmol/L (8-16); Aspartate Amino Transferase 31 U/L (14-36); Bilirubin,Total 0.4 mg/dL (0.2-1.3); Blood Urea Nitrogen 10 mg/dL (7-17); Calcium 9.8 mg/dL (8.4-10.2); Carbon Dioxide 28 mmol/L (22-30); Chloride 101 mmol/L (98-107); Estimated CRCL calculation 104 ml/min; Estimated Glomerular Filt Rate > 60; Glucose 105 mg/dL (65-105); Lipase 64 U/L (23-300); Potassium 3.5 mmol/L (3.4-5.0); Sodium 139 mmol/L (137-145)
[2020-03-30 10:01] LABS: Lactic Acid Reflex 1.5 mmol/L (0.7-2.1)
[2020-03-30] MEDS: LACTATED RINGERS 1,000 ML 999 ML IV CONT (11:16)
== END 2020-03-30 12:58 | disposition home or self-care (01) ==
PROVIDERS: Emergency Provider General Practice; PCP Internal Medicine
DX: K58.0 Irritable bowel syndrome with diarrhea (principal); E86.0 Dehydration; M19.90 Unspecified osteoarthritis, unspecified site; K21.9 Gastro-esophageal reflux disease without esophagitis; I10 Essential (primary) hypertension; Z87.442 Personal history of urinary calculi; E28.2 Polycystic ovarian syndrome; Z87.891 Personal history of nicotine dependence
CPT/HCPCS: 36415; 74177; 80053; 81001; 83605; 83690; 85025; 96361; 96374; 96375; 99284; J2270; J2405; J7030; J7120; Q9967

== ENCOUNTER 2020-04-14 11:28 | Emergency (ER) | payer OTHER, SELFPAY ==
[2020-04-14 11:37] VITALS: BP 149/99; PULSE 104; RESP 16; TEMP 37.4; O2SAT 99
--- NOTE | 2020-04-14 11:37 | ED.URI ---
HPI - URI/Sore Throat General Chief Complaint: Upper Respiratory Infection Stated Complaint: cough Time Seen by Provider: 04/14/20 11:38 Source: patient and RN notes reviewed History of Present Illness HPI Narrative: Patient is a 50-year-old female who presents the urgent care with complaints of a mostly dry harsh cough. Patient states it started a day and a half ago and she was negative for Covid yesterday. Patient denies of any recent known exposure to anyone with upper respiratory symptoms. Denies of any fever, ear pain, sore throat. Denies of any shortness of breath but states that it is painful to the back to take deep breaths due to the harsh coughing. Denies of any chest pain. States that the cough seems to be worse when laying down at night. Patient denies any history of pneumonia but states that she has had history of bronchitis. No other acute complaints. No acute distress noted. Dry cough noted throughout exam. Patient aware of the plan of care. Some parts of this dictation were generated by voice recognition software and may contain typographical and/or grammatical inaccuracies. Related Data Home Medications Medication Instructions Recorded Confirmed esomeprazole magnesium 20 mg 20 mg PO DAILY 06/17/19 04/14/20 capsule,delayed release multivitamin 1 tablet PO DAILY 06/17/19 04/14/20 simethicone 125 mg capsule 125 mg PO DAILY PRN 06/17/19 04/14/20 Allergies Allergy/AdvReac Type Severity Reaction Status Date / Time aspirin Allergy Unknown Swelling Verified 04/14/20 11:48 Review of Systems Review of Systems: Narrative: CONSTITUTIONAL: Denies fever, chills, or sweats. EYES: Denies visual changes, redness, or discharge. ENT: Denies rhinorrhea, congestion, sore throat, or otalgia. CARDIOVASCULAR: Denies chest pain, palpitations, or edema. RESPIRATORY: Reports of harsh cough without dyspnea GASTROINTESTINAL: Denies abdominal pain, nausea, vomiting, or diarrhea. GENITOURINARY: Denies dysuria or hematuria. SKIN: Denies rash or itching. MUSCULOSKELETAL: Denies back pain, joint pain, or myalgia. NEUROLOGIC: Denies headache, numbness, or weakness. All other systems reviewed are negative, except as documented in HPI. [facility] Past Medical History Medical History (Updated 04/14/20 @ 11:53 by MILIND Ozuna) Anxiety Arthritis Bronchitis Chronic back pain GERD (gastroesophageal reflux disease) Hypertension IBS (irritable bowel syndrome) Inflammatory arthritis (~2018) Kidney stones Polycystic ovarian disease Seasonal allergies Strain of right gastrocnemius muscle (~02/2019) Surgical History Surgical History History of cholecystectomy History of hysterectomy Family History Family History Mother Patient's mother is in good health Family history of cardiovascular disease Family history of arthritis Family history of atrial fibrillation Father Patient's father is in good health Family history of lymphoma Hypertension Family history of cardiovascular disease Acute myocardial infarction Family history of arthritis Social History Social History Smoking status: Former smoker Alcohol intake: never Gender identity (if verbalized by the patient): Female Comments At the time of my signature, I reviewed and agree with the nursing past medical, surgical, social, and family history. There is no relevant family history pertinent to the patient complaint. Exam Narrative: Exam Narrative: GENERAL: This is a well-nourished, well-developed patient, in no apparent distress. HEAD: normocephalic, atraumatic. EYES: PERRL. Sclera clear/white. Vision is grossly intact. EARS: External ears normal, auditory canals clear and without drainage, TMs normal without perforation. Hearing grossly intact. NOSE: External nose normal with no obvious na
== END 2020-04-14 12:00 | disposition home or self-care (01) ==
PROVIDERS: Emergency Provider Nurse Practitioner Family; PCP Internal Medicine
DX: J40 Bronchitis, not specified as acute or chronic (principal); Z87.891 Personal history of nicotine dependence; M19.90 Unspecified osteoarthritis, unspecified site; K21.9 Gastro-esophageal reflux disease without esophagitis; I10 Essential (primary) hypertension; E28.2 Polycystic ovarian syndrome
CPT/HCPCS: 99213; G0463

== ENCOUNTER 2020-07-05 14:56 | Outpatient (CLI) | payer OTHER, SELFPAY ==
--- NOTE | ~2020-07-05 | MR_ITS ---
EXAMINATION: MR sacroiliac jts wo/w con DATE: 07/05/2020 16:22 INDICATION: Spondylosis without myelopathy or radiculopathy. TECHNIQUE: Magnetic resonance imaging (MRI) of the sacroiliac joints was performed without and with 1 3 mL MultiHance intravenous contrast. Sequences included sagittal PD-weighted FS FSE, axial oblique T 2-weighted FS FSE and T1-weighted FS FSE, coronal oblique T2-weighted FS FSE, T1-weighted FSE, and T2 -weighted FSE, axial oblique T1-weighted FS FSE, and postcontrast axial oblique, coronal oblique, and sagittal T1-weighted FS FSE. COMPARISON: CT abdomen and pelvis 03/30/2020 FINDINGS: Bone alignment is normal. There is mild lumbar spondylosis. There is mild osteoarthritis of the sacro iliac joints characterized by tiny marginal osteophytes. There is a new 4.8 cm hemorrhagic cyst in le ft ovary. IMPRESSION: 1. Mild osteoarthritis of the sacroiliac joints. No evidence of inflammatory arthropathy. Reviewed, dictated and finalized at location A. [employer] IMPRESSION: 1. Mild osteoarthritis of the sacroiliac joints. No evidence of inflammatory ar thropathy.
[2020-07-05 15:30] LABS: Estimated Glomerular Filt Rate > 60
== END 2020-07-05 14:57 | disposition home or self-care (01) ==
PROVIDERS: PCP Internal Medicine; Visit Provider Internal Medicine
DX: M47.819 Spondylosis without myelopathy or radiculopathy, site unspecified (principal); M47.898 Other spondylosis, sacral and sacrococcygeal region
CPT/HCPCS: 72197; A9577

== ENCOUNTER 2020-07-22 19:50 | Emergency (ER) | payer OTHER, SELFPAY ==
--- NOTE | ~2020-07-22 | CT_ITS ---
EXAMINATION: CT abdomen pelvis w con DATE: 07/22/2020 20:38 INDICATION: Right lower quadrant pain TECHNIQUE: Computed tomography (CT) of the abdomen and pelvis was performed with 100 cc Omnipaque 350 intravenous contrast. The dose-length product was 401.99 mGy-cm. Automated exposure control and iter ative reconstruction technique were employed. COMPARISON: CT dated 03/30/2020 FINDINGS: Lung bases are unremarkable. Heart size is normal. No significant vascular abnormality. No lymphadenopathy. Fatty infiltration of the liver. Status post cholecystectomy. The spleen, pancreas, right adrenal gla nd are unremarkable. There is a small 2 mm nonobstructing right renal stone. There are small subcenti meter hypodensity of the left kidney, most likely benign cyst. Nonobstructing bowel gas pattern. Ther e is a 2.2 cm right ovarian cyst. Normal appendix. Small fat-containing umbilical hernia. No free flu id or free air. Mild osteoarthritis of the hips. IMPRESSION: 1. Right ovarian cyst measuring 2.2 cm. 2: Nonobstructing right nephrolithiasis. Reviewed, dictated and finalized at location A.
[2020-07-22 19:55] VITALS: BP 150/92; PULSE 118; RESP 18; TEMP 36.9; O2SAT 100
--- NOTE | 2020-07-22 19:57 | ED.ABDPAIN ---
HPI - Abdominal Pain General Chief Complaint: Abdominal Pain Stated Complaint: abd pain x2 hours Time Seen by Provider: 07/22/20 19:57 History of Present Illness HPI narrative: 8/10 RLQ pain for the past 2 hours. No radiation. No nausea, vomiting, diarrhea. She has had ovarian cysts in the past and believes that is what she is experiencing. She says she cannot be certain because it is different every time. Related Data Home Medications Medication Instructions Recorded Confirmed multivitamin 1 tablet PO DAILY 06/17/19 07/24/20 simethicone 125 mg capsule 125 mg PO DAILY PRN 06/17/19 07/24/20 loratadine 10 mg tablet 10 mg PO DAILY PRN 07/24/20 07/24/20 Allergies Allergy/AdvReac Type Severity Reaction Status Date / Time aspirin Allergy Mild Swelling Verified 07/24/20 14:23 Review of Systems Review of Systems: All systems reviewed & are unremarkable except as noted in HPI and below Constitutional: Constitutional: Denies fever(s) Cardiovascular: Cardiovascular: Reports no additional cardiovascular complaints Respiratory: Respiratory: Reports no additional respiratory complaints Genitourinary: Genitourinary: Denies hematuria and Denies dysuria Musculoskeletal: Musculoskeletal: Denies back pain Neurologic: Reports system reviewed and no additional complaints, except as documented PMFSH Past Medical History Medical History Anxiety Arthritis Bronchitis Chronic back pain GERD (gastroesophageal reflux disease) History of chemotherapy Hypertension IBS (irritable bowel syndrome) Inflammatory arthritis (~2018) Kidney stones Polycystic ovarian disease Seasonal allergies Strain of right gastrocnemius muscle (~02/2019) Surgical History Surgical History H/O dilation and curettage H/O ovarian cystectomy History of cholecystectomy History of hysterectomy Family History Family History Mother Patient's mother is in good health Family history of cardiovascular disease Family history of arthritis Family history of atrial fibrillation Breast cancer Hypertension Father Patient's father is in good health Family history of lymphoma Hypertension Family history of cardiovascular disease Acute myocardial infarction Family history of arthritis Grandparent Carcinoma of colon Hypertension Depression Anxiety Heart problem Cerebrovascular accident Disorder of thyroid Social History Social History Smoking packs per day: 0.5 Smoking cigarettes per day: 10.0 Years smoked: 24 Smoking pack-years: 12.00 Tobacco type: cigarettes Second hand tobacco smoke exposure: No Alcohol intake: current Substance use: never Gender identity (if verbalized by the patient): Female Exam Const: General: healthy appearing, no acute distress and alert Orientation/consciousness: patient oriented x3 HENMT: Head: normal to inspection Neck: Neck: normal visual inspection Chest: Chest palpation & inspection: no tenderness Resp: Effort & Inspection: normal respiratory effort Auscultation: clear to auscultation bilaterally, no rales, no rhonchi and no wheezes Cardio: Jugular venous distension: no JVD Rate: regular rate Rhythm: regular rhythm Heart sounds: no murmurs GI: Inspection: non-distended GI Palp: Yes Soft to palpation and Yes Tenderness to palpation present (GI) (bilateral lower) Skin: General skin exam: normal color Neuro: General: patient oriented x3, moves all extremities and CN's II-XI intact bilaterally Speech: normal speech Gait exam (Neuro): Normal gait present Extrem: General: no edema Psych: Appearance: well kempt Affect: normal affect Course Vital Signs Vital signs: Vital Signs Temperature 36.9 C 07/22/20 19:55 Pulse Rate 118 H 07/22/20 1
[2020-07-22 20:11] LABS: Basophils Absolute Auto 0.1 K/mm3 (0.0-0.1); Basophils Percent Auto 0.5 % (0.2-1.2); Eosinophils Absolute Auto 0.2 K/mm3 (0-0.3); Eosinophils Percent Auto 1.6 % (0-4.4); Hematocrit 39.5 % (37.0-47.0); Hemoglobin 13.2 g/dL (12.0-15.0); Immature Granulocyte Absolute 0.06 K/mm3 (0.00-0.031); Immature Granulocyte Percent A 0.5 % (0-0.5); Lymphocytes Absolute Auto 3.32 K/mm3 (0.9-3.2); Lymphocytes Percent Auto 28.4 % (18.3-44.2); Mean Corpuscular HGB Conc 33.4 g/dl (32-36); Mean Corpuscular Hemoglobin 31.9 pg (26-34); Mean Corpuscular Volume 95.4 fl (80-100); Mean Platelet Volume 9.2 fl (7.4-10.4); Monocytes Absolute Auto 0.7 K/mm3 (0.1-0.6); Neutrophils Absolute Auto 7.4 K/mm3 (1.3-6.7); Platelet Count Result 328 k/mm3 (150-375); Red Blood Count 4.14 M/mm3 (4.2-5.4); Red Cell Distribution Width 12.9 % (11.5-14.5); White Blood Count 11.7 K/mm3 (4.5-10.0)
[2020-07-22] MEDS: fentaNYL CITRATE INJ (*CRX) 100 MCG/2 ML VIAL 50 MCG IV PUSH (20:18)
[2020-07-22 20:23] LABS: Alanine Aminotransferase 21 U/L (4-35); Albumin Level 4.6 g/dL (3.5-5.1); Alkaline Phosphatase 55 U/L (38-126); Anion Gap 6 mmol/L (8-16); Aspartate Amino Transferase 30 U/L (14-36); Bilirubin,Total 0.3 mg/dL (0.2-1.3); Blood Urea Nitrogen 13 mg/dL (7-17); Carbon Dioxide 31 mmol/L (22-30); Chloride 103 mmol/L (98-107); Estimated CRCL calculation 89 ml/min; Estimated Glomerular Filt Rate > 60; Glucose 99 mg/dL (65-105); Lipase 122 U/L (23-300); Potassium 3.1 mmol/L (3.4-5.0); Sodium 140 mmol/L (137-145)
[2020-07-22 20:33] LABS: Add Urine Microscopic? NO; Appearance Urine Clear (Clear); Bilirubin Urine Negative (Negative); Blood Urine Negative (Negative); Color Urine Yellow (Yellow); Glucose Urine UA Negative (Negative); Ketones Urine Negative (Negative); Leukocyte Esterase Ur Negative LEU/UL (Negative); Mucus Urine Rare /lpf; Nitrate Urine Negative (Negative); Protein Urine Negative (Negative); RBC Urine 0-2 /hpf (0-2); Specific Grav Ur 1.017 (1.001-1.035); Squamous Epithelial Cell Urine Many /hpf (Few); Urobilinogen Urine Negative mg/dL (<2.0); WBC Urine 0-3 /hpf
[2020-07-22] MEDS: KETOROLAC 30 MG/ML VIAL (*BKC) IV PUSH (21:00)
[2020-07-22 21:03] VITALS: BP 127/78; PULSE 98; RESP 18; O2SAT 98
[2020-07-22 22:09] VITALS: BP 120/82; PULSE 104; RESP 17; O2SAT 98
== END 2020-07-22 22:11 | disposition home or self-care (01) ==
PROVIDERS: Emergency Provider Emergency Medicine; PCP Internal Medicine
DX: E28.2 Polycystic ovarian syndrome (principal); M19.90 Unspecified osteoarthritis, unspecified site; K21.9 Gastro-esophageal reflux disease without esophagitis; I10 Essential (primary) hypertension; K58.9 Irritable bowel syndrome, unspecified; Z87.442 Personal history of urinary calculi; F17.210 Nicotine dependence, cigarettes, uncomplicated; N20.0 Calculus of kidney
CPT/HCPCS: 36415; 74177; 80053; 81003; 83690; 85025; 96374; 96375; 99284; J1885; J3010; Q9967

== ENCOUNTER 2020-10-01 16:10 | Emergency (ER) | payer OTHER, SELFPAY ==
--- NOTE | ~2020-10-01 | CT_ITS ---
EXAMINATION: CT abdomen pelvis wo con DATE: 10/01/2020 18:40 INDICATION: Right flank pain. Hematuria TECHNIQUE: Computed tomography (CT) of the abdomen and pelvis was performed without intravenous contr ast. The dose-length product was 182.49 mGy-cm. Automated exposure control and iterative reconstructi on technique were employed. COMPARISON: CT dated 07/23/2019. FINDINGS: Lung bases unremarkable. Heart size is normal. No significant pleural or pericardial effusi on. Status post cholecystectomy. The liver, spleen, pancreas, adrenal glands and left kidney are unre markable. There is 2 mm nonobstructing right renal stone. No significant hydronephrosis. Nonobstructi ve bowel gas pattern. No abnormal pelvic masses or fluid collections. No significant vascular abnorma lity. No lymphadenopathy. Colonic diverticulosis without evidence for diverticulitis. IMPRESSION: 1. No acute abdominal abnormality. 2: Nonobstructing right renal stone measuring 2 mm. Reviewed, dictated and finalized at location A.
--- NOTE | ~2020-10-01 | XR_ITS ---
XR abdomen/kub 1V 10/01/2020 18:52 Indication: Right flank pain Procedure: KUB Comparison: 10/09/2019 Findings: Bowel gas pattern is nonobstructive. There are cholecystectomy clips. Lung bases unremarkab le. There are pelvic phleboliths. Impression: 1: No acute abdominal abnormality. Reviewed, dictated and finalized at location A. Impression: 1: No acute abdominal abnormality.
[2020-10-01 16:18] VITALS: BP 146/94; PULSE 125; RESP 16; TEMP 36.8; O2SAT 100
[2020-10-01 17:23] LABS: Basophils Absolute Auto 0.1 K/mm3 (0.0-0.1); Basophils Percent Auto 0.3 % (0.2-1.2); Eosinophils Absolute Auto 0.2 K/mm3 (0-0.3); Eosinophils Percent Auto 1.3 % (0-4.4); Hematocrit 37.4 % (37.0-47.0); Hemoglobin 12.5 g/dL (12.0-15.0); Immature Granulocyte Absolute 0.06 K/mm3 (0.00-0.031); Immature Granulocyte Percent A 0.3 % (0-0.5); Lymphocytes Absolute Auto 2.54 K/mm3 (0.9-3.2); Lymphocytes Percent Auto 14.5 % (18.3-44.2); Mean Corpuscular HGB Conc 33.4 g/dl (32-36); Mean Corpuscular Hemoglobin 31.2 pg (26-34); Mean Corpuscular Volume 93.3 fl (80-100); Mean Platelet Volume 9.2 fl (7.4-10.4); Monocytes Absolute Auto 0.6 K/mm3 (0.1-0.6); Monocytes Percent Auto 3.2 % (2.6-8.5); Neutrophils Absolute Auto 14.1 K/mm3 (1.3-6.7); Neutrophils Percent Auto 80.4 % (45.5-73.1); Platelet Count Result 307 k/mm3 (150-375); Red Blood Count 4.01 M/mm3 (4.2-5.4); White Blood Count 17.5 K/mm3 (4.5-10.0)
[2020-10-01 17:32] LABS: Anion Gap 7 mmol/L (8-16); Blood Urea Nitrogen 15 mg/dL (7-17); Calcium 9.6 mg/dL (8.4-10.2); Carbon Dioxide 27 mmol/L (22-30); Chloride 103 mmol/L (98-107); Estimated CRCL calculation 88 ml/min; Estimated Glomerular Filt Rate > 60; Glucose 122 mg/dL (65-105); Sodium 137 mmol/L (137-145)
[2020-10-01 17:34] LABS: Add Urine Microscopic? YES; Appearance Urine Cloudy (Clear); Bilirubin Urine Negative (Negative); Blood Urine 3+ (Negative); Color Urine Red (Yellow); Glucose Urine UA Negative (Negative); Ketones Urine Negative (Negative); Leukocyte Esterase Ur Negative LEU/UL (Negative); Mucus Urine Moderate /lpf; Nitrate Urine Positive (Negative); Protein Urine 2+ mg/dL (Negative); RBC Urine >75 /hpf (0-2); Specific Grav Ur 1.028 (1.001-1.035)
[2020-10-01 18:00] VITALS: BP 126/79; PULSE 110; RESP 20; O2SAT 96
--- NOTE | 2020-10-01 18:11 | ED.FEMALEGU ---
HPI - Female Genitourinary General Chief complaint: Urogenital-Female Stated complaint: UTI or kidney stone Time Seen by Provider: 10/01/20 17:52 Source: patient and RN notes reviewed Mode of arrival: ambulatory Limitations: no limitations History of Present Illness HPI Narrative: This is a 50 year old female with history of kidney stones who presents for evaluation of hematuria with UTI symptoms. She developed symptoms of a UTI yesterday. She reports pressure with urination and gross hematuria. She also reports right lower back pain with nausea. She denies fever or chills. She started taking azo and cranberry juice yesterday. This treatment initially helped her symptoms but today they became worsen. She denies taking antibiotics recently. Related Data Home Medications Medication Instructions Recorded Confirmed multivitamin 1 tablet PO DAILY 06/17/19 08/07/20 simethicone 125 mg capsule 125 mg PO DAILY PRN 06/17/19 08/07/20 loratadine 10 mg tablet 10 mg PO DAILY PRN 07/24/20 08/07/20 Allergies Allergy/AdvReac Type Severity Reaction Status Date / Time aspirin Allergy Mild Swelling Verified 10/01/20 18:02 Review of Systems Review of Systems: All systems reviewed & are unremarkable except as noted in HPI and below PMFSH Past Medical History Medical History Anxiety Arthritis Bronchitis Chronic back pain GERD (gastroesophageal reflux disease) History of chemotherapy Hypertension IBS (irritable bowel syndrome) Inflammatory arthritis (~2018) Kidney stones Polycystic ovarian disease Seasonal allergies Strain of right gastrocnemius muscle (~02/2019) Surgical History Surgical History H/O dilation and curettage H/O ovarian cystectomy History of cholecystectomy History of hysterectomy Family History Family History Mother Patient's mother is in good health Family history of cardiovascular disease Family history of arthritis Family history of atrial fibrillation Breast cancer Hypertension Father Patient's father is in good health Family history of lymphoma Hypertension Family history of cardiovascular disease Acute myocardial infarction Family history of arthritis Grandparent Carcinoma of colon Hypertension Depression Anxiety Heart problem Cerebrovascular accident Disorder of thyroid Social History Social History Smoking packs per day: 0.5 Smoking cigarettes per day: 10.0 Years smoked: 24 Smoking pack-years: 12.00 Smoking status: Current every day smoker Tobacco type: cigarettes Second hand tobacco smoke exposure: No Alcohol intake: current Substance use: never Gender identity (if verbalized by the patient): Female Exam Const: General: no acute distress and alert Orientation/consciousness: patient oriented x3 Eyes: EOM: EOMs intact bilaterally Chest: Chest palpation & inspection: normal inspection of the chest Resp: Effort & Inspection: normal respiratory effort and no retractions Auscultation: clear to auscultation bilaterally Cardio: Rate: tachycardic Rhythm: regular rhythm GI: GI Palp: Yes Soft to palpation, Yes Tenderness to palpation present (GI) and No Guarding due to palpation present (GI) Auscultation: normal bowel sounds : General: Yes CVA tenderness on the right Neuro: General: patient oriented x3, moves all extremities and CN's II-XI intact bilaterally Psych: Mental Status: mental status grossly normal Affect: normal affect Course Reevaluation(s) Reevaluation #1: I discussed with patient CT shows a nonobstructing stone. She states her pain is better and she is comfortable with discharge home. She was given IVF and IV rocephin. She will be treated for pyelonephritis. Date: 10/01/20 Time: 20:29 Vital Signs Vit
[2020-10-01] MEDS: MORPHINE SULFATE (*CRX) 4 MG/ML INJ IV PUSH (18:26)
[2020-10-01] MEDS: ONDANSETRON INJ 4 MG/2 ML VIAL IV PUSH (18:26)
[2020-10-01 18:32] VITALS: BP 151/92; PULSE 115; RESP 20; O2SAT 100
[2020-10-01] MEDS: SODIUM CHLORIDE 0.9% IV 1,000 ML 999 ML IV CONT (18:32)
[2020-10-01 18:51] LABS: Lactic Acid Reflex 1.4 mmol/L (0.7-2.1)
[2020-10-01 18:56] VITALS: BP 140/88; PULSE 109; RESP 20; O2SAT 96
[2020-10-01] MEDS: KETOROLAC 30 MG/ML VIAL (*BKC) IV PUSH (20:09)
[2020-10-01] MEDS: POTASSIUM CHLORIDE 20 MEQ TABLET 40 MEQ PO (20:09)
== END 2020-10-01 20:48 | disposition home or self-care (01) ==
PROVIDERS: Emergency Medicine; Emergency Provider General Practice; PCP Internal Medicine
DX: N39.0 Urinary tract infection, site not specified (principal); R31.9 Hematuria, unspecified; N20.0 Calculus of kidney; I10 Essential (primary) hypertension; M19.90 Unspecified osteoarthritis, unspecified site; K21.9 Gastro-esophageal reflux disease without esophagitis; Z92.21 Personal history of antineoplastic chemotherapy; Z87.442 Personal history of urinary calculi; K58.9 Irritable bowel syndrome, unspecified; E28.2 Polycystic ovarian syndrome; F17.210 Nicotine dependence, cigarettes, uncomplicated
CPT/HCPCS: 36415; 74018; 74176; 80048; 81001; 83605; 85025; 87040; 87077; 87086; 87088; 87186; 96361; 96365; 96375; 99284; A9270; J0696; J1885; J2270; J2405; J7030

== ENCOUNTER 2020-11-02 16:07 | Emergency (ER) | payer OTHER, SELFPAY ==
[2020-11-02 16:17] VITALS: BP 131/92; PULSE 111; RESP 16; TEMP 37.1; O2SAT 98
--- NOTE | 2020-11-02 16:35 | ED.URI ---
HPI - URI/Sore Throat General Chief Complaint: Upper Respiratory Infection Stated Complaint: Cough Time Seen by Provider: 11/02/20 16:23 Source: patient and RN notes reviewed Mode of arrival: ambulatory Limitations: no limitations History of Present Illness HPI Narrative: Patient presents today complaining of a 10-day history of cough, scratchiness in the throat, fatigue, congestion, rhinorrhea. Reports some left rib pain with deep breath. Denies shortness of breath or wheezing, fever. Denies history of asthma or COPD. Smokes half pack per day. She has been taking DayQuil and NyQuil without much relief. MD elicited complaint: cough Related Data Home Medications Medication Instructions Recorded Confirmed multivitamin 1 tablet PO DAILY 06/17/19 08/07/20 simethicone 125 mg capsule 125 mg PO DAILY PRN 06/17/19 08/07/20 loratadine 10 mg tablet 10 mg PO DAILY PRN 07/24/20 08/07/20 Allergies Allergy/AdvReac Type Severity Reaction Status Date / Time aspirin Allergy Mild Swelling Verified 11/02/20 16:24 Review of Systems Review of Systems: Narrative: CONSTITUTIONAL: Denies fever, chills, or sweats.+ Fatigue, body aches EYES: Denies visual changes, redness, or discharge. ENT: Denies sore throat, or otalgia.+ Congestion, rhinorrhea, scratchy throat CARDIOVASCULAR: Denies chest pain, palpitations, or edema. RESPIRATORY: Denies dyspnea. + Cough GASTROINTESTINAL: Denies abdominal pain, nausea, vomiting, or diarrhea. GENITOURINARY: Denies dysuria or hematuria. SKIN: Denies rash, itching, or wounds. MUSCULOSKELETAL: Denies back pain, joint pain, or myalgia. NEUROLOGIC: Denies headache, numbness, tingling, or weakness. PSYCH: Denies depression or anxiety. [facility] Past Medical History Medical History Anxiety Arthritis Bronchitis Chronic back pain GERD (gastroesophageal reflux disease) History of chemotherapy Hypertension IBS (irritable bowel syndrome) Inflammatory arthritis (~2018) Kidney stones Polycystic ovarian disease Seasonal allergies Strain of right gastrocnemius muscle (~02/2019) Surgical History Surgical History H/O dilation and curettage H/O ovarian cystectomy History of cholecystectomy History of hysterectomy Family History Family History (Reviewed 11/02/20 @ 16:37 by La Gonzalez, [facility], ) Mother Patient's mother is in good health Family history of cardiovascular disease Family history of arthritis Family history of atrial fibrillation Breast cancer Hypertension Father Patient's father is in good health Family history of lymphoma Hypertension Family history of cardiovascular disease Acute myocardial infarction Family history of arthritis Grandparent Carcinoma of colon Hypertension Depression Anxiety Heart problem Cerebrovascular accident Disorder of thyroid Social History Social History (Reviewed 11/02/20 @ 16:37 by La Gonzalez, [facility], ) Smoking packs per day: 0.5 Smoking cigarettes per day: 10.0 Years smoked: 24 Smoking pack-years: 12.00 Smoking status: Current every day smoker Tobacco type: cigarettes Second hand tobacco smoke exposure: No Alcohol intake: current Substance use: never Gender identity (if verbalized by the patient): Female Comments At time of signature, I have reviewed and agree with nursing past medical, surgical, social and family history unless otherwise noted. Please see nursing chart for further information. There is no relevant family history pertinent to the presenting complaint Exam Narrative: Exam Narrative: GENERAL: Well-appearing, well-nourished, and in no acute distress. HEAD: Normocephalic, atraumatic. EYES: EOMI. No redness or drainage. Conjunctivae normal. ENT: Mucous membranes pink and moist. Nares congested. No rhinorrhea. TMs normal bilaterally. Throat normal. Uvula midline
== END 2020-11-02 16:49 | disposition home or self-care (01) ==
PROVIDERS: Emergency Provider Nurse Practitioner; PCP Internal Medicine
DX: J40 Bronchitis, not specified as acute or chronic (principal); F17.210 Nicotine dependence, cigarettes, uncomplicated; M19.90 Unspecified osteoarthritis, unspecified site; K21.9 Gastro-esophageal reflux disease without esophagitis; I10 Essential (primary) hypertension; E28.2 Polycystic ovarian syndrome
CPT/HCPCS: 99213; G0463

== ENCOUNTER 2021-01-27 14:58 | Emergency (ER) | payer OTHER, SELFPAY ==
[2021-01-27 15:06] VITALS: BP 138/96; PULSE 84; RESP 18; TEMP 36.8; O2SAT 99
--- NOTE | 2021-01-27 15:55 | ED.URI ---
HPI - URI/Sore Throat General Chief Complaint: Upper Respiratory Infection Stated Complaint: Sore Throat,Cough,Congestion Time Seen by Provider: 01/27/21 15:40 Source: patient and RN notes reviewed Mode of arrival: ambulatory Limitations: no limitations History of Present Illness HPI Narrative: Patient presents today complaining of sore throat, rhinorrhea, cough, watery and puffy eyes, headache, body aches since yesterday. Denies fever, nausea, vomiting, diarrhea. Denies known sick contacts. Denies shortness of breath. She does have history of seasonal allergies for which she takes Claritin. She has also been taking Robitussin cold medicine without relief and using cough drops. MD elicited complaint: cough, sore throat, rhinorrhea and nasal congestion Related Data Home Medications Medication Instructions Recorded Confirmed multivitamin 1 tablet PO DAILY 06/17/19 01/27/21 simethicone 125 mg capsule 125 mg PO DAILY PRN 06/17/19 01/27/21 loratadine 10 mg tablet 10 mg PO DAILY PRN 07/24/20 01/27/21 Allergies Allergy/AdvReac Type Severity Reaction Status Date / Time aspirin Allergy Mild Swelling Verified 11/02/20 16:24 Review of Systems Review of Systems: CONSTITUTIONAL: Denies fever, chills, or sweats.+ Body aches EYES: Denies visual changes, redness, or discharge.+ Puffy and watery eyes ENT: Denies otalgia.+. Sore throat, rhinorrhea CARDIOVASCULAR: Denies chest pain, palpitations, or edema. RESPIRATORY: Denies dyspnea.+ Cough GASTROINTESTINAL: Denies abdominal pain, nausea, vomiting, or diarrhea. GENITOURINARY: Denies dysuria or hematuria. SKIN: Denies rash, itching, or wounds. MUSCULOSKELETAL: Denies back pain, joint pain, or myalgia. NEUROLOGIC: Denies numbness, tingling, or weakness.+ Headache PSYCH: Denies depression or anxiety. [facility] Past Medical History Medical History Anxiety Arthritis Bronchitis Chronic back pain GERD (gastroesophageal reflux disease) History of chemotherapy Hypertension IBS (irritable bowel syndrome) Inflammatory arthritis (~2018) Kidney stones Polycystic ovarian disease Seasonal allergies Strain of right gastrocnemius muscle (~02/2019) Surgical History Surgical History H/O dilation and curettage H/O ovarian cystectomy History of cholecystectomy History of hysterectomy Family History Family History Mother Patient's mother is in good health Family history of cardiovascular disease Family history of arthritis Family history of atrial fibrillation Breast cancer Hypertension Father Patient's father is in good health Family history of lymphoma Hypertension Family history of cardiovascular disease Acute myocardial infarction Family history of arthritis Grandparent Carcinoma of colon Hypertension Depression Anxiety Heart problem Cerebrovascular accident Disorder of thyroid Social History Social History Smoking packs per day: 0.5 Smoking cigarettes per day: 10.0 Years smoked: 24 Smoking pack-years: 12.00 Smoking status: Current every day smoker Tobacco type: cigarettes Second hand tobacco smoke exposure: No Alcohol intake: current Alcohol use details: Social Substance use: never Gender identity (if verbalized by the patient): Female Comments At time of signature, I have reviewed and agree with nursing past medical, surgical, social and family history unless otherwise noted. Please see nursing chart for further information. There is no relevant family history pertinent to the presenting complaint Exam Narrative: GENERAL: Well-appearing, well-nourished, and in no acute distress. HEAD: Normocephalic, atraumatic. EYES: EOMI. PERRL. No redness or drainage. Conjunctivae normal. ENT: M
== END 2021-01-27 16:12 | disposition home or self-care (01) ==
PROVIDERS: Emergency Provider Nurse Practitioner; PCP Internal Medicine
DX: J30.2 Other seasonal allergic rhinitis (principal); I10 Essential (primary) hypertension; F17.210 Nicotine dependence, cigarettes, uncomplicated
CPT/HCPCS: 99211; G0463

== ENCOUNTER 2021-04-08 11:20 | Emergency (ER) | payer OTHER, SELFPAY ==
[2021-04-08 11:27] VITALS: BP 160/75; PULSE 106; RESP 16; TEMP 36.8; O2SAT 98
--- NOTE | 2021-04-08 12:31 | ED.URI ---
HPI - URI/Sore Throat General Chief Complaint: Upper Respiratory Infection Stated Complaint: Cough,Congestion Time Seen by Provider: 04/08/21 12:09 Source: patient and RN notes reviewed Mode of arrival: ambulatory Limitations: no limitations History of Present Illness HPI Narrative: Patient presents today complaint of a 3-day history of cough and congestion. Denies any additional symptoms to include fever, sore throat, ear pain. Eating and drinking normally. Voiding and stooling normally. She has been taking DayQuil and NyQuil with relief. She presents today with her grandchild whom she has guardianship of, who is diagnosed with RSV. MD elicited complaint: cough and nasal congestion Related Data Home Medications Medication Instructions Recorded Confirmed multivitamin 1 tablet PO DAILY 06/17/19 01/27/21 simethicone 125 mg capsule 125 mg PO DAILY PRN 06/17/19 01/27/21 loratadine 10 mg tablet 10 mg PO DAILY PRN 07/24/20 01/27/21 Allergies Allergy/AdvReac Type Severity Reaction Status Date / Time aspirin Allergy Mild Swelling Verified 11/02/20 16:24 Review of Systems Review of Systems: CONSTITUTIONAL: Denies body aches, fever, chills, or sweats. EYES: Denies visual changes, redness, or discharge. ENT: Denies rhinorrhea, sore throat, or otalgia.+ Congestion CARDIOVASCULAR: Denies chest pain, palpitations, or edema. RESPIRATORY: Denies dyspnea.+ Cough GASTROINTESTINAL: Denies abdominal pain, nausea, vomiting, or diarrhea. GENITOURINARY: Denies dysuria or hematuria. SKIN: Denies rash, itching, or wounds. MUSCULOSKELETAL: Denies back pain, joint pain, or myalgia. NEUROLOGIC: Denies headache, numbness, tingling, or weakness. PSYCH: Denies depression or anxiety. [facility] Past Medical History Medical History Anxiety Arthritis Bronchitis Chronic back pain GERD (gastroesophageal reflux disease) History of chemotherapy Hypertension IBS (irritable bowel syndrome) Inflammatory arthritis (~2018) Kidney stones Polycystic ovarian disease Seasonal allergies Strain of right gastrocnemius muscle (~02/2019) Surgical History Surgical History H/O dilation and curettage H/O ovarian cystectomy History of cholecystectomy History of hysterectomy Family History Family History Mother Patient's mother is in good health Family history of cardiovascular disease Family history of arthritis Family history of atrial fibrillation Breast cancer Hypertension Father Patient's father is in good health Family history of lymphoma Hypertension Family history of cardiovascular disease Acute myocardial infarction Family history of arthritis Grandparent Carcinoma of colon Hypertension Depression Anxiety Heart problem Cerebrovascular accident Disorder of thyroid Social History Social History Smoking packs per day: 0.5 Smoking cigarettes per day: 10.0 Years smoked: 24 Smoking pack-years: 12.00 Smoking status: Current every day smoker Tobacco type: cigarettes Second hand tobacco smoke exposure: No Alcohol intake: current Alcohol use details: Social Substance use: never Gender identity (if verbalized by the patient): Female Comments At time of signature, I have reviewed and agree with nursing past medical, surgical, social and family history unless otherwise noted. Please see nursing chart for further information. There is no relevant family history pertinent to the presenting complaint Exam Narrative: GENERAL: Well-appearing, well-nourished, and in no acute distress. HEAD: Normocephalic, atraumatic. EYES: EOMI. No redness or drainage. Conjunctivae normal. ENT: Mucous membranes pink and moist. Nares congested. No rhinorrhea. TMs normal bilaterally
== END 2021-04-08 12:40 | disposition home or self-care (01) ==
PROVIDERS: Emergency Provider Nurse Practitioner; PCP Internal Medicine
DX: R05.9 Cough, unspecified (principal); B97.4 Respiratory syncytial virus as the cause of diseases classified elsewhere; F17.210 Nicotine dependence, cigarettes, uncomplicated; M19.90 Unspecified osteoarthritis, unspecified site; K21.9 Gastro-esophageal reflux disease without esophagitis; I10 Essential (primary) hypertension; M06.9 Rheumatoid arthritis, unspecified; Z92.21 Personal history of antineoplastic chemotherapy
CPT/HCPCS: 99211; G0463

== ENCOUNTER 2021-04-10 16:17 | Emergency (ER) | payer OTHER, SELFPAY ==
--- NOTE | ~2021-04-10 | XR_ITS ---
EXAMINATION: XR chest 2V EXAM DATE: 04/10/2021 17:10 INDICATION: prod cough x 4 days. TECHNIQUE: Frontal and lateral projections of the chest obtained and reviewed. Comparison is made to prior examination from 07/15/2017. FINDINGS: The lungs are clear. There are no pleural effusions. The cardiomediastinal silhouette is within normal limits. There is no pneumothorax suspected. The bones and soft tissues are unremarkab le. There are cholecystectomy clips. IMPRESSION: No acute cardiopulmonary findings. 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
[2021-04-10 16:30] VITALS: BP 140/83; PULSE 113; RESP 16; TEMP 37.2; O2SAT 99
--- NOTE | 2021-04-10 17:14 | ED.GENADULT ---
HPI - General Adult General Chief complaint: Upper Respiratory Infection Stated complaint: congestion Source: patient Mode of arrival: ambulatory Limitations: no limitations History of Present Illness HPI narrative: Patient is a 51-year-old female who presents to the [facility] via POV for evaluation of upper respiratory symptoms present for 4 days. Additionally, she reports dry cough, fatigue, myalgias, fever, nasal congestion, rhinorrhea, and watery eyes. She reports maximum temperature to be 100.1. DayQuil NyQuil provide minimal relief. Symptoms worsen at night. Denies known exposure to sick contacts. Patient is fully vaccinated against Covid. Related Data Home Medications Medication Instructions Recorded Confirmed multivitamin 1 tablet PO DAILY 06/17/19 01/27/21 simethicone 125 mg capsule 125 mg PO DAILY PRN 06/17/19 01/27/21 loratadine 10 mg tablet 10 mg PO DAILY PRN 07/24/20 01/27/21 Allergies Allergy/AdvReac Type Severity Reaction Status Date / Time aspirin Allergy Mild Swelling Verified 11/02/20 16:24 Review of Systems Review of Systems: Denies history of COPD, bronchitis, asthma, and pneumonia. Admits to current tobacco use. Pertinent negatives: sweats, chills, change in appetite, fatigue, skin color changes, headache, dizziness, lymphadenopathy, ear pain/drainage, chest pain, heart murmurs, heart palpitations, shortness of breath, wheezing, cyanosis, hemoptysis, hoarseness, orthopnea, pleuritic pain, nausea, vomiting, diarrhea. PMFSH Past Medical History Medical History Anxiety Arthritis Bronchitis Chronic back pain GERD (gastroesophageal reflux disease) History of chemotherapy Hypertension IBS (irritable bowel syndrome) Inflammatory arthritis (~2018) Kidney stones Polycystic ovarian disease Seasonal allergies Strain of right gastrocnemius muscle (~02/2019) Surgical History Surgical History H/O dilation and curettage H/O ovarian cystectomy History of cholecystectomy History of hysterectomy Family History Family History Mother Patient's mother is in good health Family history of cardiovascular disease Family history of arthritis Family history of atrial fibrillation Breast cancer Hypertension Father Patient's father is in good health Family history of lymphoma Hypertension Family history of cardiovascular disease Acute myocardial infarction Family history of arthritis Grandparent Carcinoma of colon Hypertension Depression Anxiety Heart problem Cerebrovascular accident Disorder of thyroid Social History Social History Smoking packs per day: 0.5 Smoking cigarettes per day: 10.0 Years smoked: 24 Smoking pack-years: 12.00 Smoking status: Current every day smoker Tobacco type: cigarettes Second hand tobacco smoke exposure: No Alcohol intake: current Alcohol use details: Social Substance use: never Gender identity (if verbalized by the patient): Female Comments I have reviewed and agree with the patient's past medical, surgical, social, and family hx as documented by the RN. There is no relevant family history pertinent to the presenting complaint. Exam Narrative: GENERAL: Well-appearing, well-nourished, and in no acute distress. HEAD: Normocephalic, atraumatic. No sinus tenderness or facial swelling appreciated. EYES: PERRLA and EOMI. No evidence of erythema, swelling, or drainage. ENT: Bilateral external ears and ear canals normal. Bilateral TMs are normal.No TM perforation. Nares clear, no rhinorrhea or epistaxis. Bilateral turbinates without erythema/ swelling. Mucous membranes moist and pink. Uvula is midline without erythema and swelling. No evidence of petechial rash, cobblestoning, lesion
== END 2021-04-10 17:51 | disposition home or self-care (01) ==
PROVIDERS: Emergency Provider Nurse Practitioner Family; PCP Internal Medicine
DX: J10.1 Influenza due to other identified influenza virus with other respiratory manifestations (principal); I10 Essential (primary) hypertension; F17.210 Nicotine dependence, cigarettes, uncomplicated
CPT/HCPCS: 71046; 87426; 87804; 99213; C9803; G0463

== ENCOUNTER 2021-05-20 15:43 | Emergency (ER) | payer OTHER, SELFPAY ==
[2021-05-20 16:44] VITALS: BP 134/83; PULSE 107; RESP 16; TEMP 36.9; O2SAT 99
--- NOTE | 2021-05-20 17:24 | ED.URI ---
HPI - URI/Sore Throat General Chief Complaint: Upper Respiratory Infection Stated Complaint: congestion/fever/sore throat Time Seen by Provider: 05/20/21 17:26 Source: patient Mode of arrival: ambulatory Limitations: no limitations History of Present Illness HPI Narrative: 51-year-old female presented for complaint of sinus pressure and congestion, low-grade fever, cough, headache and body aches worsening over the past week. Cough is nonproductive, endorses decreased appetite. Has been taking DayQuil and NyQuil and Mucinex for symptoms. She is vaccinated but has not had booster yet. She takes Claritin daily. Denies chest pain, shortness of breath, nausea, vomiting. Related Data Home Medications Medication Instructions Recorded Confirmed multivitamin 1 tablet PO DAILY 06/17/19 05/20/21 loratadine 10 mg tablet 10 mg PO DAILY PRN 07/24/20 05/20/21 Allergies Allergy/AdvReac Type Severity Reaction Status Date / Time aspirin Allergy Mild Swelling Verified 05/20/21 16:50 Review of Systems Review of Systems: CONSTITUTIONAL: Endorses malaise, chills, sweats, fever. EYES: Denies visual changes, redness, or discharge. ENT: Reports rhinorrhea, congestion, sinus pain, otalgia and sore throat. CARDIOVASCULAR: Denies chest pain, palpitations, or edema. RESPIRATORY: Reports cough, post nasal drainage. Denies dyspnea. GASTROINTESTINAL: Denies abdominal pain, nausea, vomiting, diarrhea SKIN: Denies rash or itching. MUSCULOSKELETAL: Denies myalgia. NEUROLOGIC: Denies headache. [facility] Past Medical History Medical History Anxiety Arthritis Bronchitis Chronic back pain GERD (gastroesophageal reflux disease) History of chemotherapy Hypertension IBS (irritable bowel syndrome) Inflammatory arthritis (~2018) Kidney stones Polycystic ovarian disease Seasonal allergies Strain of right gastrocnemius muscle (~02/2019) Surgical History Surgical History H/O dilation and curettage H/O ovarian cystectomy History of cholecystectomy History of hysterectomy Family History Family History Mother Patient's mother is in good health Family history of cardiovascular disease Family history of arthritis Family history of atrial fibrillation Breast cancer Hypertension Father Patient's father is in good health Family history of lymphoma Hypertension Family history of cardiovascular disease Acute myocardial infarction Family history of arthritis Grandparent Carcinoma of colon Hypertension Depression Anxiety Heart problem Cerebrovascular accident Disorder of thyroid Social History Social History Smoking packs per day: 0.5 Smoking cigarettes per day: 10.0 Years smoked: 24 Smoking pack-years: 12.00 Smoking status: Current every day smoker Tobacco type: cigarettes Second hand tobacco smoke exposure: No Alcohol intake: current Alcohol use details: Social Substance use: never Gender identity (if verbalized by the patient): Female Comments At time of signature, I have reviewed and agree with nursing past medical, surgical, social and family history unless otherwise noted. Please see nursing chart for further information. There is no relevant family history pertinent to the presenting complaint Exam Narrative: GENERAL: Ill-appearing, non toxic no acute distress. HEAD: Normocephalic EYES: PERRLA, conjunctivae clear ENT: Mucous membranes moist. TM pearly dodd with dull light reflex bilaterally; no tragal tenderness. Oropharynx erythematous without lesions. Tonsils enlarged and without exudate, no drooling, no hoarseness, no trismus, uvula midline. NECK: Supple. Anterior cervical lymphadenopathy CHEST: Clear to auscultation, breath sounds equal. No wheezing, rhonchi, rales,
== END 2021-05-20 18:08 | disposition home or self-care (01) ==
PROVIDERS: Emergency Provider Nurse Practitioner Family; PCP Internal Medicine
DX: U07.1 COVID-19 (principal); F17.210 Nicotine dependence, cigarettes, uncomplicated; M19.90 Unspecified osteoarthritis, unspecified site; K21.9 Gastro-esophageal reflux disease without esophagitis; I10 Essential (primary) hypertension; M06.9 Rheumatoid arthritis, unspecified; E28.2 Polycystic ovarian syndrome; Z92.21 Personal history of antineoplastic chemotherapy
CPT/HCPCS: 87426; 99213; C9803; G0463

== ENCOUNTER 2021-07-11 18:07 | Emergency (ER) | payer OTHER, SELFPAY ==
--- NOTE | ~2021-07-11 | XR_ITS ---
XR foot LT min 3V 07/11/2021 19:46 INDICATION: Left foot pain for 2 days PROCEDURE: 4 views left foot COMPARISON: No prior studies for comparison. FINDINGS: Fracture, dislocation or subluxation is not identified. Lisfranc joint intact. The soft tis sues appear within normal limits. No foreign bodies are identified. IMPRESSION: 1: NO ACUTE BONE OR JOINT ABNORMALITY IDENTIFIED. Reviewed, dictated and finalized at location A. 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
[2021-07-11 18:36] VITALS: BP 154/88; PULSE 89; RESP 18; TEMP 36.6; O2SAT 100
--- NOTE | 2021-07-11 19:28 | ED.LOWEXIN ---
HPI - Extremity Injury (Lower) General Chief Complaint: Extremity Injury, Lower Stated Complaint: left foot swelling/pain Time Seen by Provider: 07/11/21 19:29 Source: patient, RN notes reviewed and old records reviewed Mode of arrival: ambulatory Limitations: no limitations History of Present Illness HPI Narrative: 51-year-old female who presents to [facility] with complaints of pain to left 2nd and 3rd toes of her left foot with 3X3 area of redness to top of foot near skin proximal toes and noted swelling. Patient reports that she knows of no known injury to her foot or toes,no bite or any known irritation to skin on left foot.Patient also has some bruising to the underside of the 2nd toe. Patient has strong pedal and posterior tibial pulses of her left foot, denies any tingling or numbness to left foot reports pain increases with weight bearing. MD complaint: other (Toe pain and swelling with some bruising) Onset (ago): day(s) (1 day noticed this yesterday morning) Related Data Home Medications Medication Instructions Recorded Confirmed multivitamin 1 tablet PO DAILY 06/17/19 07/11/21 loratadine 10 mg tablet 10 mg PO DAILY PRN 07/24/20 07/11/21 Allergies Allergy/AdvReac Type Severity Reaction Status Date / Time aspirin Allergy Mild Swelling Verified 07/11/21 19:24 Review of Systems Review of Systems: CONSTITUTIONAL: Denies fever, chills, or sweats. EYES: Denies visual changes, redness, or discharge. ENT: Denies rhinorrhea, congestion, sore throat, or otalgia. CARDIOVASCULAR: Denies chest pain, palpitations, or edema. RESPIRATORY: Denies cough or dyspnea. GASTROINTESTINAL: Denies abdominal pain, nausea, vomiting, or diarrhea. GENITOURINARY: Denies dysuria or hematuria. SKIN: Denies rash or itching. MUSCULOSKELETAL: Denies back pain,toe joint pain of 2nd and 3rd toe of left foot, or myalgia. NEUROLOGIC: Denies headache, numbness, or weakness. PSYCHIATRIC: Positive for history of anxiety or depression. All systems reviewed & are unremarkable except as noted in HPI and below PMFSH Past Medical History Medical History Anxiety Arthritis Bronchitis Chronic back pain GERD (gastroesophageal reflux disease) History of chemotherapy Hypertension IBS (irritable bowel syndrome) Inflammatory arthritis (~2018) Kidney stones Polycystic ovarian disease Seasonal allergies Strain of right gastrocnemius muscle (~02/2019) Surgical History Surgical History H/O dilation and curettage H/O ovarian cystectomy History of cholecystectomy History of hysterectomy Family History Family History Mother Patient's mother is in good health Family history of cardiovascular disease Family history of arthritis Family history of atrial fibrillation Breast cancer Hypertension Father Patient's father is in good health Family history of lymphoma Hypertension Family history of cardiovascular disease Acute myocardial infarction Family history of arthritis Grandparent Carcinoma of colon Hypertension Depression Anxiety Heart problem Cerebrovascular accident Disorder of thyroid Social History Social History Smoking packs per day: 0.5 Smoking cigarettes per day: 10.0 Years smoked: 24 Smoking pack-years: 12.00 Smoking status: Current every day smoker Tobacco type: cigarettes Second hand tobacco smoke exposure: No Alcohol intake: current Alcohol use details: Social Substance use: never Gender identity (if verbalized by the patient): Female Comments At time of signature, agree with nursing past medical, surgical, social and family history. There is no relevant family history pertinent to the presenting complaint Exam Narrative: GENERAL: Well-appearing, well-nourished, and in
== END 2021-07-11 20:10 | disposition home or self-care (01) ==
PROVIDERS: Emergency Provider Registered Nurse; PCP Internal Medicine
DX: M79.675 Pain in left toe(s) (principal); L53.9 Erythematous condition, unspecified; F17.210 Nicotine dependence, cigarettes, uncomplicated; M19.90 Unspecified osteoarthritis, unspecified site; I10 Essential (primary) hypertension; E28.2 Polycystic ovarian syndrome; M06.9 Rheumatoid arthritis, unspecified
CPT/HCPCS: 73630; 99213; G0463

== ENCOUNTER 2021-09-21 10:09 | Emergency (ER) | payer OTHER, SELFPAY ==
[2021-09-21 10:49] VITALS: BP 130/84; PULSE 120; RESP 16; TEMP 36.9; O2SAT 100
--- NOTE | 2021-09-21 11:07 | ED.URI ---
HPI - URI/Sore Throat General Chief Complaint: Upper Respiratory Infection Stated Complaint: Sore Throat Time Seen by Provider: 09/21/21 11:07 Source: patient Mode of arrival: ambulatory Limitations: no limitations History of Present Illness HPI Narrative: 51-year-old female presents with complaint of sore throat with radiation to left ear, fatigue for 3 days. Reports that pain is causing difficulty swallowing and cannot sleep at night due to pain. Is taking ibuprofen and Tylenol. Afebrile. No other symptoms. All systems reviewed and negative except as noted above. Related Data Home Medications Medication Instructions Recorded Confirmed multivitamin 1 tablet PO DAILY 06/17/19 09/21/21 loratadine 10 mg tablet 10 mg PO DAILY PRN 07/24/20 09/21/21 Allergies Allergy/AdvReac Type Severity Reaction Status Date / Time aspirin Allergy Mild Swelling Verified 09/21/21 10:23 Review of Systems Review of Systems: CONSTITUTIONAL: Denies fever, chills, or sweats. Reports fatigue EYES: Denies visual changes, redness, or discharge. ENT: Denies rhinorrhea, congestion. Reports sore throat with radiation to left ear. CARDIOVASCULAR: Denies chest pain, palpitations, or edema. RESPIRATORY: Denies cough or dyspnea. GASTROINTESTINAL: Denies abdominal pain, nausea, vomiting, or diarrhea. GENITOURINARY: Denies dysuria or hematuria. SKIN: Denies rash or itching. MUSCULOSKELETAL: Denies back pain, joint pain, or myalgia. NEUROLOGIC: Denies headache, numbness, or weakness. PSYCHIATRIC: Denies anxiety or depression. All other systems reviewed are negative, except as documented in HPI. [facility] Past Medical History Medical History Anxiety Arthritis Bronchitis Chronic back pain GERD (gastroesophageal reflux disease) History of chemotherapy Hypertension IBS (irritable bowel syndrome) Inflammatory arthritis (~2018) Kidney stones Polycystic ovarian disease Seasonal allergies Strain of right gastrocnemius muscle (~02/2019) Surgical History Surgical History H/O dilation and curettage H/O ovarian cystectomy History of cholecystectomy History of hysterectomy Family History Family History Mother Patient's mother is in good health Family history of cardiovascular disease Family history of arthritis Family history of atrial fibrillation Breast cancer Hypertension Father Patient's father is in good health Family history of lymphoma Hypertension Family history of cardiovascular disease Acute myocardial infarction Family history of arthritis Grandparent Carcinoma of colon Hypertension Depression Anxiety Heart problem Cerebrovascular accident Disorder of thyroid Social History Social History Smoking packs per day: 0.5 Smoking cigarettes per day: 10.0 Years smoked: 24 Smoking pack-years: 12.00 Smoking status: Current every day smoker Tobacco type: cigarettes Second hand tobacco smoke exposure: No Alcohol intake: current Alcohol use details: Social Substance use: never Gender identity (if verbalized by the patient): Female Comments At time of signature, agree with nursing past medical, surgical, social and family history. There is no relevant family history pertinent to the presenting complaint. Exam Narrative: GENERAL: This is a well-nourished, well-developed patient, in no apparent distress. HEAD: normocephalic, atraumatic. EYES: PERRL. Sclera clear/white. Vision is grossly intact. EARS: External ears normal, auditory canals clear and without drainage, TMs normal without perforation. Hearing grossly intact. NOSE: External nose normal with no obvious nasal discharge, nares without redness, no rhinorrhea. THROAT: Mucous membranes moist, erythema to posterior pharynx. E
== END 2021-09-21 11:43 | disposition home or self-care (01) ==
PROVIDERS: Emergency Provider Nurse Practitioner Family; PCP Internal Medicine
DX: J02.9 Acute pharyngitis, unspecified (principal); F17.210 Nicotine dependence, cigarettes, uncomplicated; M19.90 Unspecified osteoarthritis, unspecified site; K21.9 Gastro-esophageal reflux disease without esophagitis; I10 Essential (primary) hypertension; M06.9 Rheumatoid arthritis, unspecified; E28.2 Polycystic ovarian syndrome
CPT/HCPCS: 36416; 86308; 87081; 87880; 99213; G0463

== ENCOUNTER 2021-10-25 14:44 | Outpatient (CLI) | payer OTHER, SELFPAY ==
[2021-10-25 15:12] LABS: Basophils Absolute Auto 0.1 K/mm3 (0.0-0.1); Basophils Percent Auto 0.8 % (0.2-1.2); Eosinophils Absolute Auto 0.3 K/mm3 (0-0.3); Eosinophils Percent Auto 3.1 % (0-4.4); Hematocrit 40.6 % (37.0-47.0); Hemoglobin 13.4 g/dL (12.0-15.0); Immature Granulocyte Absolute 0.05 K/mm3 (0.00-0.031); Immature Granulocyte Percent A 0.5 % (0-0.5); Lymphocytes Absolute Auto 3.29 K/mm3 (0.9-3.2); Lymphocytes Percent Auto 32.4 % (18.3-44.2); Mean Corpuscular Hemoglobin 30.9 pg (26-34); Mean Corpuscular Volume 93.5 fl (80-100); Mean Platelet Volume 9.1 fl (7.4-10.4); Monocytes Absolute Auto 0.5 K/mm3 (0.1-0.6); Monocytes Percent Auto 4.9 % (2.6-8.5); Neutrophils Absolute Auto 5.9 K/mm3 (1.3-6.7); Neutrophils Percent Auto 58.3 % (45.5-73.1); Platelet Count Result 363 k/mm3 (150-375); Red Blood Count 4.34 M/mm3 (4.2-5.4); White Blood Count 10.2 K/mm3 (4.5-10.0)
[2021-10-25 15:25] LABS: Alanine Aminotransferase 26 U/L (6-35); Albumin Level 4.7 g/dL (3.5-5.1); Alkaline Phosphatase 62 U/L (38-126); Anion Gap 7 mmol/L (8-16); Aspartate Amino Transferase 27 U/L (14-36); Bilirubin,Total 0.2 mg/dL (0.2-1.3); Blood Urea Nitrogen 12 mg/dL (7-17); Carbon Dioxide 27 mmol/L (22-30); Chloride 105 mmol/L (98-107); Cholesterol 282 mg/dL (0-200); Creatinine Urine 183.4 mg/dL; Estimated Glomerular Filt Rate > 60; Glucose 98 mg/dL (65-110); HDL Direct 54 mg/dL; Potassium 3.5 mmol/L (3.4-5.0); Sodium 139 mmol/L (137-145); Triglycerides 359 mg/dL (<150)
[2021-10-25 15:30] LABS: MALB Creatinine Ratio 13.4 mg/g (0-30); Microalbumin Urine Random 24.5 mg/L (0-16.7)
[2021-10-25 15:36] LABS: LDL Cholesterol Direct 147 mg/dL
[2021-10-25 16:04] LABS: Vitamin D 25 Hydroxy 42.3 ng/mL
== END 2021-10-25 14:45 | disposition home or self-care (01) ==
LOC: ANHLAB 14:45
PROVIDERS: PCP Internal Medicine; Visit Provider Internal Medicine
DX: K21.9 Gastro-esophageal reflux disease without esophagitis (principal); M47.819 Spondylosis without myelopathy or radiculopathy, site unspecified; J44.9 Chronic obstructive pulmonary disease, unspecified; F41.9 Anxiety disorder, unspecified; F32.9 Major depressive disorder, single episode, unspecified; I10 Essential (primary) hypertension; Z72.0 Tobacco use; E55.9 Vitamin D deficiency, unspecified; K58.2 Mixed irritable bowel syndrome
CPT/HCPCS: 36415; 80053; 80061; 82043; 82306; 84443; 85025

== ENCOUNTER 2021-11-01 10:50 | Outpatient (CLI) | payer OTHER, SELFPAY ==
--- NOTE | 2021-11-01 11:05 | ECG_ITS ---
Measurements Intervals [place] Rate: 99 P: 58 VT: 137 QRS: 49 QRSD: 84 T: 56 QT: 343 QTc: 441 Interpretive Statements SINUS RHYTHM POSSIBLE LEFT ATRIAL ENLARGEMENT [-0.1mV P WAVE IN V1/V2] OTHERWISE WITHIN NORMAL LIMITS NO PREVIOUS ECG AVAILABLE FOR COMPARISON Electronically Signed On 11-01-2021 16:49:28 CDT by Jonnathan Armendariz M.D.
== END 2021-11-01 10:51 | disposition home or self-care (01) ==
LOC: ANHLAB 10:52
PROVIDERS: PCP Internal Medicine; Visit Provider Internal Medicine
DX: I10 Essential (primary) hypertension (principal); R00.0 Tachycardia, unspecified
CPT/HCPCS: 93005

== ENCOUNTER 2022-01-01 13:39 | Outpatient (CLI) | payer OTHER, SELFPAY ==
--- NOTE | 2022-01-01 13:51 | ECHO_ITS ---
Patient Info Name: Alley Craven Age: 51 years : 1970 Gender: Female Ht: 62 in Wt: 150 lbs BSA: 1.74 m2 HR: 114 bpm BP: 130 / 93 mmHg Technical Quality: Good Exam Date: 01/01/2022 2:09 PM Exam Location: [facility] Patient Status: Outpatient Admit Date: 01/01/2022 Staff Ordering Physician: Henry Denis DO Refrigerating Machine Operator: Arian De Leon RDCS, RT Attending Provider: Henry Denis DO Referring Physician: Adeel KILGORE; Exam Type: CA echo doppler color flow Study Info Indications R00.0 - Tachycardia, unspecified Complete two-dimensional, color flow and Doppler transthoracic echocardiogram is performed. Strain analysis performed. Summary 1. Complete two-dimensional, color flow and Doppler transthoracic echocardiogram is performed. 2. Left ventricular chamber dimension is normal. 3. Left ventricular systolic function is normal, estimated at 60-65%. 4. The left ventricular diastolic function is grade I diastolic dysfunction. 5. E/e' 5 is not elevated. 6. Global longitudinal strain is mildly abnormal at -16.6%. Left Ventricle E/e' 5 is not elevated. Global longitudinal strain is mildly abnormal at -16.6%. Left ventricular chamber dimension is normal. Left ventricular systolic function is normal, estimated at 60-65%. The left ventricular diastolic function is grade I diastolic dysfunction. Right Ventricle Right ventricular chamber dimension is normal. Right ventricular systolic function is normal. Left Atria Left atrial chamber dimension is normal. Right Atria Right atrial chamber dimension is normal. Aortic Valve The aortic valve is trileaflet. There is no aortic valve stenosis. There is no aortic valve regurgitation. Pulmonic Valve There is no pulmonic regurgitation. Mitral Valve There is no mitral valve stenosis. There is no mitral valve regurgitation. Tricuspid Valve There is no tricuspid valve regurgitation. Pericardium/Pleural There is no pericardial effusion. Inferior Vena Cava Normal inferior vena cava with >50% collapse upon inspiration consistent with normal right atrial pressure, 5 mmHg. Aorta The aortic root size at the sinus of Valsalva is normal. Left Ventricular Outflow Tract Name Value Normal LVOT 2D LVOT Diameter 2.0 cm LVOT Doppler LVOT Peak Gradient 3 mmHg LVOT Mean Gradient 1 mmHg LVOT VTI 14 cm LVOT VTI/AV VTI Ratio 0.7 LVOT Stroke Volume 42 ml LVOT CO 4.6 l/min LVOT CI 2.6 l/min/m2 Mitral Valve Name Value Normal MV Doppler MV Decel [place] 457 cm/s2 MV PHT 40 ms MV Area (PHT) 5.
== END 2022-01-01 13:40 | disposition home or self-care (01) ==
PROVIDERS: PCP Internal Medicine; Visit Provider Internal Medicine Cardiovascular Disease
DX: R00.0 Tachycardia, unspecified (principal)
CPT/HCPCS: 93306

== ENCOUNTER 2022-01-10 13:46 | Outpatient (CLI) | payer OTHER, SELFPAY ==
[2022-01-10 14:18] LABS: Alanine Aminotransferase 20 U/L (6-35); Albumin Level 4.9 g/dL (3.5-5.1); Alkaline Phosphatase 67 U/L (38-126); Anion Gap 11 mmol/L (8-16); Aspartate Amino Transferase 28 U/L (14-36); Bilirubin,Total 0.6 mg/dL (0.2-1.3); Blood Urea Nitrogen 13 mg/dL (7-17); Calcium 10.1 mg/dL (8.4-10.2); Carbon Dioxide 23 mmol/L (22-30); Chloride 104 mmol/L (98-107); Cholesterol 165 mg/dL (0-200); Estimated Glomerular Filt Rate > 60; Glucose 103 mg/dL (65-110); HDL Direct 55 mg/dL; Potassium 3.7 mmol/L (3.4-5.0); Sodium 138 mmol/L (137-145); Triglycerides 238 mg/dL (<150)
[2022-01-10 14:29] LABS: LDL Cholesterol Direct 65 mg/dL
== END 2022-01-10 13:47 | disposition home or self-care (01) ==
LOC: ANHLAB 13:47
PROVIDERS: PCP Internal Medicine; Visit Provider Internal Medicine Cardiovascular Disease
DX: E78.5 Hyperlipidemia, unspecified (principal)
CPT/HCPCS: 36415; 80053; 80061

== ENCOUNTER 2022-01-16 16:55 | Emergency (ER) | payer OTHER, SELFPAY ==
--- NOTE | ~2022-01-16 | CT_ITS ---
EXAMINATION: CT abdomen pelvis wo con DATE: 01/16/2022 18:02 INDICATION: Hematuria and lower abdominal and back pain. TECHNIQUE: Computed tomography (CT) of the abdomen and pelvis was performed without intravenous contr ast. Automated exposure control and iterative reconstruction technique were employed. The dose-length product was 182.52 mGy-cm. COMPARISON: 09/27/2020 FINDINGS: Lung bases are clear. Heart size normal. No pericardial or pleural effusion. Cholecystectomy clips at the gallbladder fossa. Mild diffuse hepatic steatosis. Spleen, pancreas and bilateral adrenal glands are normal. 1-2 mm nonobstructing stone at the lower pole of the right kidney. Right kidney and bila teral ureters are normal with no other urolithiasis or hydronephrosis. Decompressed bladder is normal . There are few phleboliths in the pelvis. The uterus is not identified and has likely been surgicall y resected. Bilateral adnexa are unremarkable. Bowels including the appendix are normal. No free intr aperitoneal gas or fluid. No pathologically enlarged abdominal or pelvic lymphadenopathy. Mild lumbar dextrocurvature. Transitional thoracolumbar and lumbosacral segments with 4 intervening nonrib-beari ng lumbar segments. Mild to moderate bilateral hip osteoarthritis. IMPRESSION: 1. 1-2 mm nonobstructing right renal stone. No other urolithiasis or acute intra-abdominal/pelvic pro cess. Reviewed, dictated and finalized at location A. IMPRESSION: 1. 1-2 mm nonobstructing right renal stone. No other urolithiasis or acute intr a-abdominal/pelvic process.
[2022-01-16 17:15] VITALS: BP 147/86; PULSE 107; RESP 18; TEMP 36.7; O2SAT 100
--- NOTE | 2022-01-16 17:29 | ED.FEMALEGU ---
HPI - Female Genitourinary General Chief complaint: Urogenital-Female Stated complaint: kidney stone or UTI Time Seen by Provider: 01/16/22 17:23 Source: patient Mode of arrival: ambulatory Limitations: no limitations History of Present Illness HPI Narrative: Patient is a 51-year-old female who presents the ED with report of lower abdominal and back pain with urinary symptoms. Patient reports she developed pain in her lower abdomen and lower back around 7 or 8 AM this morning. Pain seems to be slightly worse on right side. She felt like she may be developing a urinary tract infection. She has had these, as well as kidney stones, before. She tried drinking Azo and cranberry juice at home without relief. She also reports having hematuria, urinary frequency and urgency, small volume voids, nausea, but denies vomiting, diarrhea, constipation. She has not taken anything for pain today. Patient's urine sample noted to be grossly bloody upon arrival. Related Data Home Medications Medication Instructions Recorded Confirmed multivitamin (Daily Vitamin 1 tablet PO DAILY 06/17/19 01/10/22 Formula tablet) simethicone 125 mg capsule (Gas 125 mg PO DAILY PRN 11/01/21 01/10/22 Relief (simethicone)) loratadine 10 mg tablet (Claritin) 10 mg PO DAILY 12/13/21 01/10/22 naproxen sodium 220 mg tablet 220 mg PO BID PRN 12/13/21 01/10/22 (Flanax (naproxen)) Allergies Allergy/AdvReac Type Severity Reaction Status Date / Time aspirin Allergy Mild Swelling Verified 01/16/22 17:15 Review of Systems Review of Systems: CONSTITUTIONAL: Denies fever, chills, or sweats. CARDIOVASCULAR: Denies chest pain. RESPIRATORY: Denies dyspnea. GASTROINTESTINAL: Reports bilateral lower abdominal pain, nausea. Denies constipation, vomiting, or diarrhea. GENITOURINARY: Reports urinary frequency, urinary urgency, small volume voids, dysuria, hematuria. MUSCULOSKELETAL: Reports bilateral lower back pain. All systems reviewed & are unremarkable except as noted in HPI and below PMFSH Past Medical History Medical History Anxiety Arthritis Bronchitis Chronic back pain GERD (gastroesophageal reflux disease) History of chemotherapy Hypertension IBS (irritable bowel syndrome) Inflammatory arthritis (~2019) Kidney stones Polycystic ovarian disease Seasonal allergies Strain of right gastrocnemius muscle (~02/2019) Surgical History Surgical History H/O dilation and curettage H/O ovarian cystectomy History of cholecystectomy History of hysterectomy Family History Family History Mother Patient's mother is in good health Family history of cardiovascular disease Family history of arthritis Family history of atrial fibrillation Breast cancer Hypertension Father Patient's father is in good health Family history of lymphoma Hypertension Family history of cardiovascular disease Acute myocardial infarction Family history of arthritis Grandparent Carcinoma of colon Hypertension Depression Anxiety Heart problem Cerebrovascular accident Disorder of thyroid Social History Social History Smoking packs per day: 0.5 Smoking cigarettes per day: 10.0 Years smoked: 24 Smoking pack-years: 12.00 Smoking status: Current every day smoker Tobacco type: cigarettes Second hand tobacco smoke exposure: Yes Alcohol intake: current Alcohol use details: Social Substance use: never Substance use type: does not use Gender identity (if verbalized by the patient): Female Exam Narrative: GENERAL: Well appearing, well-nourished, non-toxic, in no acute distress. HEAD: Normocephalic, atraumatic. NECK: Supple. No adenopathy, no masses. RESPIRATORY: Airway patent, respirations nonlabored. Clear
[2022-01-16 17:41] LABS: Basophils Absolute Auto 0.1 K/mm3 (0.0-0.1); Basophils Percent Auto 0.3 % (0.2-1.2); Eosinophils Absolute Auto 0.3 K/mm3 (0-0.3); Eosinophils Percent Auto 1.5 % (0-4.4); Hematocrit 39.5 % (37.0-47.0); Hemoglobin 13.1 g/dL (12.0-15.0); Immature Granulocyte Absolute 0.08 K/mm3 (0.00-0.031); Immature Granulocyte Percent A 0.4 % (0-0.5); Lymphocytes Absolute Auto 3.28 K/mm3 (0.9-3.2); Lymphocytes Percent Auto 18.3 % (18.3-44.2); Mean Corpuscular HGB Conc 33.2 g/dl (32-36); Mean Corpuscular Volume 93.4 fl (80-100); Mean Platelet Volume 8.9 fl (7.4-10.4); Monocytes Absolute Auto 0.7 K/mm3 (0.1-0.6); Monocytes Percent Auto 3.8 % (2.6-8.5); Neutrophils Absolute Auto 13.6 K/mm3 (1.3-6.7); Neutrophils Percent Auto 75.7 % (45.5-73.1); Platelet Count Result 348 k/mm3 (150-375); Red Blood Count 4.23 M/mm3 (4.2-5.4); Red Cell Distribution Width 12.9 % (11.5-14.5); White Blood Count 17.9 K/mm3 (4.5-10.0)
[2022-01-16 17:50] LABS: Add Urine Microscopic? YES; Appearance Urine Turbid (Clear); Bilirubin Urine 3+ (Negative); Blood Urine 3+ (Negative); Color Urine Red (Yellow); Glucose Urine UA Trace mg/dL (Negative); Ketones Urine 1+ mg/dL (Negative); Leukocyte Esterase Ur 3+ LEU/UL (Negative); Nitrate Urine Negative (Negative); Protein Urine 3+ mg/dL (Negative); Specific Grav Ur <= 1.005 (1.001-1.035)
[2022-01-16 17:53] LABS: Alanine Aminotransferase 28 U/L (6-35); Albumin Level 4.8 g/dL (3.5-5.1); Alkaline Phosphatase 65 U/L (38-126); Anion Gap 14 mmol/L (8-16); Aspartate Amino Transferase 36 U/L (14-36); Bilirubin,Total 0.4 mg/dL (0.2-1.3); Blood Urea Nitrogen 7 mg/dL (7-17); Calcium 8.9 mg/dL (8.4-10.2); Carbon Dioxide 26 mmol/L (22-30); Chloride 101 mmol/L (98-107); Estimated CRCL calculation 107 ml/min; Estimated Glomerular Filt Rate > 60; Glucose 101 mg/dL (65-110); Potassium 3.4 mmol/L (3.4-5.0); Sodium 141 mmol/L (137-145)
[2022-01-16 17:56] LABS: RBC Urine >75 /hpf (0-2)
[2022-01-16 17:57] LABS: Bacteria Urine 1+ /hpf; Squamous Epithelial Cell Urine Few /hpf (Few)
[2022-01-16 17:58] LABS: WBC Urine 21-30 /hpf (0-3)
[2022-01-16] MEDS: SODIUM CHLORIDE 0.9% IV 1,000 ML 999 ML IV CONT (18:11)
[2022-01-16] MEDS: ONDANSETRON INJ 4 MG/2 ML VIAL IV PUSH (18:12)
[2022-01-16] MEDS: KETOROLAC 30 MG/ML VIAL (*BKC) IV PUSH (19:57)
[2022-01-16 20:39] VITALS: BP 137/89; PULSE 84; RESP 18; O2SAT 100
== END 2022-01-16 20:39 | disposition home or self-care (01) ==
PROVIDERS: Emergency Provider Emergency Medicine; PCP Internal Medicine
DX: N20.0 Calculus of kidney (principal); N30.01 Acute cystitis with hematuria; I10 Essential (primary) hypertension; E28.2 Polycystic ovarian syndrome; K21.9 Gastro-esophageal reflux disease without esophagitis; K58.9 Irritable bowel syndrome, unspecified; M19.90 Unspecified osteoarthritis, unspecified site; Z92.21 Personal history of antineoplastic chemotherapy; Z87.442 Personal history of urinary calculi; Z90.710 Acquired absence of both cervix and uterus; F17.210 Nicotine dependence, cigarettes, uncomplicated
CPT/HCPCS: 36415; 74176; 80053; 81001; 81025; 85025; 87086; 96361; 96365; 96367; 96375; 99284; J0131; J0696; J1885; J2405; J7030

== ENCOUNTER 2022-01-31 09:55 | Outpatient (CLI) | payer OTHER, SELFPAY ==
[2022-01-31 10:33] LABS: Basophils Absolute Auto 0.1 K/mm3 (0.0-0.1); Basophils Percent Auto 0.6 % (0.2-1.2); Eosinophils Absolute Auto 0.3 K/mm3 (0-0.3); Eosinophils Percent Auto 2.4 % (0-4.4); Hematocrit 45.6 % (37.0-47.0); Hemoglobin 14.6 g/dL (12.0-15.0); Immature Granulocyte Absolute 0.03 K/mm3 (0.00-0.031); Immature Granulocyte Percent A 0.3 % (0-0.5); Lymphocytes Absolute Auto 2.71 K/mm3 (0.9-3.2); Lymphocytes Percent Auto 25.5 % (18.3-44.2); Mean Corpuscular Hemoglobin 30.5 pg (26-34); Mean Corpuscular Volume 95.4 fl (80-100); Mean Platelet Volume 9.5 fl (7.4-10.4); Monocytes Absolute Auto 0.4 K/mm3 (0.1-0.6); Monocytes Percent Auto 4.1 % (2.6-8.5); Neutrophils Absolute Auto 7.1 K/mm3 (1.3-6.7); Neutrophils Percent Auto 67.1 % (45.5-73.1); Platelet Count Result 260 k/mm3 (150-375); Red Blood Count 4.78 M/mm3 (4.2-5.4); Red Cell Distribution Width 12.8 % (11.5-14.5); White Blood Count 10.6 K/mm3 (4.5-10.0)
[2022-01-31 13:55] LABS: CRP < 0.5 mg/dL (<1.0)
[2022-01-31 14:11] LABS: Erythrocyte Sedimentation Rate 17 mm/hr (0-20)
== END 2022-01-31 09:56 | disposition home or self-care (01) ==
LOC: ANHLAB 09:57
PROVIDERS: PCP Internal Medicine; Visit Provider Internal Medicine Hematology & Oncology
DX: D72.829 Elevated white blood cell count, unspecified (principal)
CPT/HCPCS: 36415; 85025; 85652; 86140; 88184

== ENCOUNTER 2022-04-02 10:37 | Emergency (ER) | payer OTHER, SELFPAY ==
[2022-04-02] VITALS (9 sets, daily range): BP systolic 124–155; BP diastolic 77–95; PULSE 97–122; RESP 11–20; TEMP 36.9; O2SAT 93–98
--- NOTE | ~2022-04-02 | CT_ITS ---
EXAMINATION: CTA chest PE abdomen pel DATE: 04/02/2022 13:21 INDICATION: Shortness of breath, cough and tachycardia. Elevated d-dimer. Abdominal pain. TECHNIQUE: Computed tomography (CT) pulmonary angiogram of the chest was performed with 100 mL Omnipa que-350 intravenous contrast. Additional 3D reconstructions utilizing coronal maximum intensity proje ction (MIP) were performed. CT of the abdomen and pelvis was performed with intravenous contrast util izing the same contrast bolus following a short delay. Automated exposure control and iterative recon struction technique were employed. The dose-length product was 560.34 mGy-cm. COMPARISON: CT abdomen and pelvis dated 01/16/2022 FINDINGS: Chest: Excellent contrast opacification of the pulmonary arteries. There is mild streak artifact from dense contrast in the superior vena cava and right atrium. Mild scattered respiratory motion artifact which does not significantly limit evaluation. No pulmonary embolism. Suboptimal inspiratory effort on the chest images with mildly decreased lung volumes and minimal dependent groundglass opacity consistent with atelectasis. This largely resolves on the imaging of the lung bases on the abdominal and pelvis portion of the examination. No pneumonia, pulmonary edema, pleural effusion or pneumothorax. Heart s ize is normal. No pericardial effusion. Thoracic aorta is normal in caliber with no dissection. No pa thologically enlarged thoracic lymphadenopathy. Mild to moderate thoracic spondylosis. Abdomen/pelvis: Cholecystectomy clips the gallbladder fossa. Liver, spleen, pancreas and bilateral adrenal glands are normal. Again seen is a 2 mm nonobstructing stone at a lower pole calyx of the right kidney. Subcent imeter low-attenuation left renal cyst. Normal appendix. There are few scattered clonic type without adjacent inflammatory change to suggest diverticulitis. Fluid in the proximal to mid colon consistent with diarrhea. Bladder is normal. The uterus is not identified and has likely been surgically resect ed. New 1.8 cm left ovarian cyst/follicle. Bilateral adnexa are otherwise unremarkable. No free intra peritoneal gas or fluid. No pathologically enlarged abdominal or pelvic lymphadenopathy. Mild lumbar dextrocurvature. Transitional thoracolumbar and lumbosacral segment, the latter sacralized on the lef t. Mild to moderate bilateral hip osteoarthritis. IMPRESSION: 1. No pulmonary embolism or other acute cardiopulmonary disease. 2. 2 mm nonobstructing right renal stone. No acute intra-abdominal/pelvic process. Reviewed, dictated and finalized at location A. [employer] IMPRESSION: 1. No pulmonary embolism or other acute cardiopulmonary disease. 2. 2 mm nonobstructing right renal stone. No acute intra-abdominal/pelvic proce ss.
--- NOTE | 2022-04-02 12:04 | ECG_ITS ---
Measurements Intervals [place] Rate: 103 P: 64 ME: 143 QRS: 48 QRSD: 85 T: 52 QT: 336 QTc: 440 Interpretive Statements SINUS TACHYCARDIA BORDERLINE ECG COMPARED TO ECG 11/01/2021 11:11:59 SINUS TACHYCARDIA NOW PRESENT Electronically Signed On 04-02-2022 12:47:34 [employer] by Henry Denis D.O.
--- NOTE | 2022-04-02 12:06 | ED.URI ---
HPI - URI/Sore Throat General Chief Complaint: Upper Respiratory Infection Stated Complaint: flu s/sx Time Seen by Provider: 04/02/22 11:24 Source: patient Mode of arrival: ambulatory Limitations: no limitations History of Present Illness HPI Narrative: This is a 52 year old female that presents to the ER for cold symptoms ongoing over the last week. Reports cough, congestion, sore throat, diarrhea, and nausea. Reports today she has felt very winded just walking to the bathroom. Reports chest pain with cough. Reports abdominal cramping. Denies fever or shortness of breath. Related Data Home Medications Medication Instructions Recorded Confirmed multivitamin (Daily Vitamin 1 tablet PO DAILY 06/17/19 01/31/22 Formula tablet) simethicone 125 mg capsule (Gas 125 mg PO DAILY PRN 11/01/21 01/31/22 Relief (simethicone)) loratadine 10 mg tablet (Claritin) 10 mg PO DAILY 12/13/21 01/31/22 naproxen sodium 220 mg tablet 220 mg PO BID PRN 12/13/21 01/31/22 (Flanax (naproxen)) omega 8-sjn-nem-fish oil 100 cap PO 01/31/22 01/31/22 mg-160 mg-1,000 mg capsule (Fish Oil) Allergies Allergy/AdvReac Type Severity Reaction Status Date / Time aspirin Allergy Mild Swelling Verified 01/31/22 09:30 Review of Systems Review of Systems: CONSTITUTIONAL: Denies fever ENT: Reports congestion, sore throat CARDIOVASCULAR: Reports chest pain. Denies edema. RESPIRATORY: Reports cough. Denies dyspnea. GASTROINTESTINAL: Reports abdominal pain, nausea, and diarrhea. MUSCULOSKELETAL: Reports myalgia. NEUROLOGIC: Reports weakness. All systems reviewed & are unremarkable except as noted in HPI and below PMFSH Past Medical History Medical History Anxiety Arthritis Bilateral hand pain Bronchitis Chronic back pain GERD (gastroesophageal reflux disease) History of chemotherapy Hypertension IBS (irritable bowel syndrome) Inflammatory arthritis (~2018) Kidney stones Polycystic ovarian disease Seasonal allergies Strain of right gastrocnemius muscle (~02/2019) Surgical History Surgical History H/O dilation and curettage H/O ovarian cystectomy History of cholecystectomy History of hysterectomy Family History Family History Mother Patient's mother is in good health Family history of cardiovascular disease Family history of arthritis Family history of atrial fibrillation Breast cancer Hypertension Father Patient's father is in good health Family history of lymphoma Hypertension Family history of cardiovascular disease Acute myocardial infarction Family history of arthritis Grandparent Carcinoma of colon Hypertension Depression Anxiety Heart problem Cerebrovascular accident Disorder of thyroid Social History Social History Smoking packs per day: 0.5 Smoking cigarettes per day: 10.0 Years smoked: 24 Smoking pack-years: 12.00 Smoking status: Current every day smoker Tobacco type: cigarettes Second hand tobacco smoke exposure: Yes Alcohol intake: current Alcohol use details: Social Substance use: never Substance use type: does not use Gender identity (if verbalized by the patient): Female Exam Narrative: GENERAL: Well-appearing, well-nourished, and in no acute distress. HEAD: Normocephalic, atraumatic. EYES: PERRLA and EOMI. ENT: Nares clear, no rhinorrhea or epistaxis. Mucous membranes moist. Oropharynx without tonsillar hypertrophy exudate or other lesions. Bilateral TMs pearly dodd non-bulging NECK: Supple. No adenopathy or masses. CHEST: Clear to auscultation. No respiratory distress. No wheezes rales or rhonchi HEART: Regular rate and rhythm. No murmur heard. Normal peripheral pulses. ABDOMEN: Soft, nontender, nondistended, normal active bowel sounds
[2022-04-02 12:12] LABS: Basophils Percent Auto 0.2 % (0.2-1.2); Eosinophils Absolute Auto 0.2 K/mm3 (0-0.3); Eosinophils Percent Auto 2.2 % (0-4.4); Hematocrit 43.4 % (37.0-47.0); Hemoglobin 14.6 g/dL (12.0-15.0); Immature Granulocyte Absolute 0.03 K/mm3 (0.00-0.031); Immature Granulocyte Percent A 0.4 % (0-0.5); Lymphocytes Absolute Auto 1.69 K/mm3 (0.9-3.2); Mean Corpuscular HGB Conc 33.6 g/dl (32-36); Mean Corpuscular Hemoglobin 31.2 pg (26-34); Mean Corpuscular Volume 92.7 fl (80-100); Mean Platelet Volume 8.9 fl (7.4-10.4); Monocytes Absolute Auto 0.4 K/mm3 (0.1-0.6); Monocytes Percent Auto 4.8 % (2.6-8.5); Neutrophils Absolute Auto 6.1 K/mm3 (1.3-6.7); Neutrophils Percent Auto 72.4 % (45.5-73.1); Platelet Count Result 291 k/mm3 (150-375); Red Blood Count 4.68 M/mm3 (4.2-5.4); White Blood Count 8.5 K/mm3 (4.5-10.0)
[2022-04-02 12:21] LABS: Alanine Aminotransferase 21 U/L (6-35); Albumin Level 4.7 g/dL (3.5-5.1); Alkaline Phosphatase 79 U/L (38-126); Anion Gap 8 mmol/L (8-16); Aspartate Amino Transferase 30 U/L (14-36); Bilirubin,Total 0.5 mg/dL (0.2-1.3); Blood Urea Nitrogen 13 mg/dL (7-17); Calcium 8.7 mg/dL (8.4-10.2); Carbon Dioxide 22 mmol/L (22-30); Chloride 105 mmol/L (98-107); Estimated CRCL calculation 101 ml/min; Estimated Glomerular Filt Rate > 60; Glucose 113 mg/dL (65-110); Potassium 3.5 mmol/L (3.4-5.0); Sodium 135 mmol/L (137-145)
[2022-04-02 12:23] LABS: Appearance Urine Slightly Cloudy (Clear); Bilirubin Urine Negative (Negative); Blood Urine Trace-intact (Negative); Color Urine Yellow (Yellow); Glucose Urine UA Negative (Negative); Ketones Urine Negative (Negative); Leukocyte Esterase Ur Negative LEU/UL (Negative); Nitrate Urine Negative (Negative); Protein Urine 1+ mg/dL (Negative); Specific Grav Ur 1.015 (1.001-1.035)
[2022-04-02] MEDS: ONDANSETRON INJ 4 MG/2 ML VIAL IV PUSH (12:28)
[2022-04-02] MEDS: FAMOTIDINE 20 MG/2 ML VIAL IV PUSH (12:28)
[2022-04-02 12:32] LABS: Bacteria Urine Trace /hpf; Mucus Urine Rare /lpf; RBC Urine 0-2 /hpf (0-2); Squamous Epithelial Cell Urine Many /hpf (Few); WBC Urine 0-3 /hpf
[2022-04-02] MEDS: SODIUM CHLORIDE 0.9% IV 1,000 ML 999 ML IV CONT (12:34)
[2022-04-02 12:35] LABS: Add Urine Microscopic? YES
[2022-04-02 12:39] LABS: Prothrombin Time 12.5 Seconds (11.1-14.7)
[2022-04-02 12:40] LABS: Lipase 175 U/L (23-300); Partial Thromboplastin Time 27.6 SECONDS (22.3-36.8)
[2022-04-02 12:46] LABS: D Dimer 0.89 ug/mL (<0.48)
[2022-04-02 13:04] LABS: Influenza A QL RT-PCR Negative (Negative); Influenza B QL RT-PCR Negative (Negative); RSV RNA, RT-PCR Negative (Negative); SARS-CoV-2 RNA PCR Negative
== END 2022-04-02 15:55 | disposition home or self-care (01) ==
PROVIDERS: Physician Assistant; Emergency Provider Emergency Medicine; PCP Internal Medicine
DX: B34.9 Viral infection, unspecified (principal); Z20.822 Contact with and (suspected) exposure to COVID-19; I10 Essential (primary) hypertension; E28.2 Polycystic ovarian syndrome; M19.90 Unspecified osteoarthritis, unspecified site; K21.9 Gastro-esophageal reflux disease without esophagitis; K58.9 Irritable bowel syndrome, unspecified; Z90.710 Acquired absence of both cervix and uterus; Z87.442 Personal history of urinary calculi; Z92.21 Personal history of antineoplastic chemotherapy; F17.210 Nicotine dependence, cigarettes, uncomplicated; N20.0 Calculus of kidney; R00.0 Tachycardia, unspecified
CPT/HCPCS: 36415; 71275; 74177; 80053; 81001; 83690; 85025; 85380; 85610; 85730; 87637; 93005; 96361; 96365; 96375; 99284; J0131; J2405; J7030; Q9967

== ENCOUNTER 2022-06-13 17:23 | Emergency (ER) | payer OTHER, SELFPAY ==
--- NOTE | 2022-06-13 17:26 | ED.URI ---
HPI - URI/Sore Throat General Chief Complaint: Upper Respiratory Infection Stated Complaint: uri Time Seen by Provider: 06/13/22 17:44 Source: patient and RN notes reviewed Mode of arrival: ambulatory Limitations: no limitations History of Present Illness HPI Narrative: 52-year-old female presents with concern for scratchy throat, gland tenderness, chest congestion and cough. Reports abdominal muscles are tender due to her cough. She reports symptoms started 3 days ago. She denies fever, chills, sweats. MD elicited complaint: cough and sore throat Related Data Home Medications Medication Instructions Recorded Confirmed multivitamin (Daily Vitamin 1 tablet PO DAILY 06/17/19 06/13/22 Formula tablet) simethicone 125 mg capsule (Gas 125 mg PO DAILY PRN Pain 11/01/21 06/13/22 Relief (simethicone)) loratadine 10 mg tablet (Claritin) 10 mg PO DAILY 12/13/21 06/13/22 naproxen sodium 220 mg tablet 220 mg PO BID PRN Pain 12/13/21 06/13/22 (Flanax (naproxen)) omega 5-hpw-xfi-fish oil 100 1 cap PO DAILY 01/31/22 06/13/22 mg-160 mg-1,000 mg capsule (Fish Oil) Allergies Allergy/AdvReac Type Severity Reaction Status Date / Time aspirin Allergy Mild Swelling Verified 06/13/22 17:40 Review of Systems Review of Systems: CONSTITUTIONAL: Denies malaise, chills, sweats, or fever. EYES: Denies visual changes, redness, or discharge. ENT: Reports rhinorrhea, congestion, sore throat. Denies sinus pain, otalgia CARDIOVASCULAR: Denies chest pain, palpitations, or edema. RESPIRATORY: Reports cough and chest congestion. Denies dyspnea. GASTROINTESTINAL: Denies abdominal pain, nausea, vomiting, diarrhea SKIN: Denies rash or itching. MUSCULOSKELETAL: Reports myalgia. NEUROLOGIC: Denies headache. All systems reviewed & are unremarkable except as noted in HPI and below PMFSH Past Medical History Medical History Anxiety Arthritis Bilateral hand pain Bronchitis Chronic back pain GERD (gastroesophageal reflux disease) History of chemotherapy Hypertension IBS (irritable bowel syndrome) Inflammatory arthritis (~2019) Kidney stones Polycystic ovarian disease Seasonal allergies Strain of right gastrocnemius muscle (~02/2019) Surgical History Surgical History H/O dilation and curettage H/O ovarian cystectomy History of cholecystectomy History of hysterectomy Family History Family History Mother Patient's mother is in good health Family history of cardiovascular disease Family history of arthritis Family history of atrial fibrillation Breast cancer Hypertension Father Patient's father is in good health Family history of lymphoma Hypertension Family history of cardiovascular disease Acute myocardial infarction Family history of arthritis Grandparent Carcinoma of colon Hypertension Depression Anxiety Heart problem Cerebrovascular accident Disorder of thyroid Social History Social History Smoking packs per day: 0.5 Smoking cigarettes per day: 10.0 Years smoked: 24 Smoking pack-years: 12.00 Smoking status: Current every day smoker Tobacco type: cigarettes Second hand tobacco smoke exposure: Yes Alcohol intake: current Alcohol use details: Social Substance use: never Substance use type: does not use Gender identity (if verbalized by the patient): Female Comments At time of signature, agree with nursing past medical, surgical, social and family history. There is no relevant family history pertinent to the presenting complaint Exam Narrative: GENERAL: Well-appearing, well-nourished, and in no acute distress. HEAD: Normocephalic EYES: PERRLA, conjunctivae clear ENT: Nares clear, turbinates edematous and erythematous, clear discharge. Mucous membra
[2022-06-13 17:32] VITALS: BP 146/89; PULSE 89; RESP 18; TEMP 37.2; O2SAT 100
== END 2022-06-13 18:08 | disposition home or self-care (01) ==
PROVIDERS: Emergency Provider Nurse Practitioner
DX: J02.0 Streptococcal pharyngitis (principal); R05.9 Cough, unspecified; F17.210 Nicotine dependence, cigarettes, uncomplicated; M19.90 Unspecified osteoarthritis, unspecified site; K21.9 Gastro-esophageal reflux disease without esophagitis; I10 Essential (primary) hypertension; E28.2 Polycystic ovarian syndrome
CPT/HCPCS: 87880; 99213; G0463

== ENCOUNTER 2022-06-23 11:26 | Outpatient (CLI) | payer OTHER, SELFPAY ==
[2022-06-23 11:38] LABS: Basophils Percent Auto 0.4 % (0.2-1.2); Eosinophils Absolute Auto 0.2 K/mm3 (0-0.3); Eosinophils Percent Auto 1.7 % (0-4.4); Hematocrit 40.7 % (37.0-47.0); Hemoglobin 13.7 g/dL (12.0-15.0); Immature Granulocyte Absolute 0.02 K/mm3 (0.00-0.031); Immature Granulocyte Percent A 0.2 % (0-0.5); Lymphocytes Absolute Auto 3.16 K/mm3 (0.9-3.2); Lymphocytes Percent Auto 33.8 % (18.3-44.2); Mean Corpuscular HGB Conc 33.7 g/dl (32-36); Mean Corpuscular Hemoglobin 30.8 pg (26-34); Mean Corpuscular Volume 91.5 fl (80-100); Mean Platelet Volume 8.8 fl (7.4-10.4); Monocytes Absolute Auto 0.5 K/mm3 (0.1-0.6); Monocytes Percent Auto 5.2 % (2.6-8.5); Neutrophils Absolute Auto 5.5 K/mm3 (1.3-6.7); Neutrophils Percent Auto 58.7 % (45.5-73.1); Platelet Count Result 320 k/mm3 (150-375); Red Blood Count 4.45 M/mm3 (4.2-5.4); Red Cell Distribution Width 12.6 % (11.5-14.5); White Blood Count 9.4 K/mm3 (4.5-10.0)
[2022-06-23 11:44] LABS: Blood Urea Nitrogen 11 mg/dL (8-26); Carbon Dioxide 26 mmol/L (22-30); Chloride 104 mmol/L (98-109); Estimated Glomerular Filt Rate > 60; Glucose 114 mg/dL (70-105); Ionized Calcium (POC) 1.18 mmol/L (1.11-1.31); Potassium 3.5 mmol/L (3.5-4.9); Sodium 139 mmol/L (138-146)
[2022-06-23 15:01] LABS: Alanine Aminotransferase 26 U/L (6-35); Albumin Level 4.7 g/dL (3.5-5.1); Alkaline Phosphatase 63 U/L (38-126); Anion Gap 8 mmol/L (8-16); Aspartate Amino Transferase 24 U/L (14-36); Bilirubin,Total 0.5 mg/dL (0.2-1.3); Blood Urea Nitrogen 12 mg/dL (7-17); Calcium 9.1 mg/dL (8.4-10.2); Carbon Dioxide 24 mmol/L (22-30); Chloride 105 mmol/L (98-107); Estimated Glomerular Filt Rate > 60; Glucose 108 mg/dL (65-110); Potassium 3.6 mmol/L (3.4-5.0); Sodium 137 mmol/L (137-145)
== END 2022-06-23 11:27 | disposition home or self-care (01) ==
LOC: ANHLAB 11:26
PROVIDERS: Visit Provider Internal Medicine Hematology & Oncology
DX: D72.829 Elevated white blood cell count, unspecified (principal)
CPT/HCPCS: 36415; 80047; 80053; 85025

== ENCOUNTER 2022-07-28 09:29 | Emergency (ER) | payer OTHER, SELFPAY ==
--- NOTE | ~2022-07-28 | XR_ITS ---
AP view of the pelvis and AP and lateral views of the right hip Clinical history: Pain Findings: No acute fracture or dislocation is seen. Osseous alignment is anatomic. Minimal degenerati ve change of the bilateral hip joints noted. Soft tissues are unremarkable. Impression: Minimal degenerative change of the bilateral hip joints. Reviewed, dictated and finalized at location . Impression: Minimal degenerative change of the bilateral hip joints.
--- NOTE | ~2022-07-28 | CT_ITS ---
EXAMINATION: CT lumbar spine wo con DATE: 07/28/2022 11:30 INDICATION: Low back pain post fall TECHNIQUE: Computed tomography (CT) of the lumbar spine was performed without intravenous contrast. A utomated exposure control and iterative reconstruction technique were employed. The dose-length produ ct was 549.70 mGy-cm. COMPARISON: CT abdomen and pelvis dated 01/16/2022 FINDINGS: Transitional thoracolumbar and lumbosacral segments which for purposes of this report will be designa ranjana L1 and S1 respectively, the former with bilateral hypoplastic riblets, essentially an unfused tra nsverse process on the left and moderate right-sided lumbarization of the S1 segment. There are 4 int ervening nonrib-bearing lumbar segments L2-L5. There 12 more cephalad paired rib bearing thoracic seg ments on chest CT dated 04/02/2022. Minimal lumbar dextrocurvature. Sagittal alignment is normal. Meli tebral body and disc heights are normal. Mildly displaced acute fractures of the right transverse pro cesses of L3 and L4. No other fractures identified.. There are mild disc bulges without significant c entral canal stenosis at L2-L3 through L5-S1. There is multilevel lumbar facet osteoarthritis, modera te severity on the right at L4-L5 and L5-S1 and otherwise mild. There is mild neural foraminal stenos is bilaterally at L5-S1 as well as at the partially lumbarized right neural foramen at S1-S2. Mild bi lateral sacroiliac osteoarthritis. Cholecystectomy clips the gallbladder fossa. Paravertebral soft ti ssues are unremarkable. IMPRESSION: 1. Displaced fractures of the right transverse processes of L3 and L4. 2. Transitional thoracolumbar and lumbosacral segments with mild lumbar spondylosis. Reviewed, dictated and finalized at location A. IMPRESSION: 1. Displaced fractures of the right transverse processes of L3 and L4. 2. Transitional thoracolumbar and lumbosacral segments with mild lumbar spondyl osis.
[2022-07-28 09:52] VITALS: BP 147/92; PULSE 114; RESP 16; TEMP 36.4; O2SAT 98
--- NOTE | 2022-07-28 10:59 | ED.FALL ---
HPI - Fall General Chief Complaint: Fall Stated Complaint: fell down steps, back pain Time Seen by Provider: 07/28/22 10:45 Source: patient Mode of arrival: ambulatory Limitations: no limitations History of Present Illness HPI Narrative: This is a 52-year-old female that presents to the emergency department for low back pain after a fall this morning. Reports she was walking down the steps and slipped and fell and landed on her back/right hip. Since she has had low back pain and right hip pain. Worse with movement and relieved with rest. She has not taken anything for pain. She did not hit her head or lose consciousness. Denies numbness or weakness. Related Data Home Medications Medication Instructions Recorded Confirmed multivitamin (Daily Vitamin 1 tablet PO DAILY 06/17/19 06/13/22 Formula tablet) simethicone 125 mg capsule (Gas 125 mg PO DAILY PRN Pain 11/01/21 06/13/22 Relief (simethicone)) loratadine 10 mg tablet (Claritin) 10 mg PO DAILY 12/13/21 06/13/22 naproxen sodium 220 mg tablet 220 mg PO BID PRN Pain 12/13/21 06/13/22 (Flanax (naproxen)) omega 1-nmz-cok-fish oil 100 1 cap PO DAILY 01/31/22 06/13/22 mg-160 mg-1,000 mg capsule (Fish Oil) Allergies Allergy/AdvReac Type Severity Reaction Status Date / Time No Known Allergies Allergy Verified 07/28/22 11:22 Review of Systems Review of Systems: CONSTITUTIONAL: Denies fever MUSCULOSKELETAL: Reports back pain, joint pain, and myalgia. NEUROLOGIC: Denies numbness, or weakness. All systems reviewed & are unremarkable except as noted in HPI and below [facility] Past Medical History Medical History Anxiety Arthritis Bilateral hand pain Bronchitis Chronic back pain GERD (gastroesophageal reflux disease) History of chemotherapy Hypertension IBS (irritable bowel syndrome) Inflammatory arthritis (~2018) Kidney stones Polycystic ovarian disease Seasonal allergies Strain of right gastrocnemius muscle (~02/2019) Surgical History Surgical History H/O dilation and curettage H/O ovarian cystectomy History of cholecystectomy History of hysterectomy Family History Family History (Reviewed 01/31/22 @ 09:31 by Kelsey Rye [facility]) Mother Patient's mother is in good health Family history of cardiovascular disease Family history of arthritis Family history of atrial fibrillation Breast cancer Hypertension Father Patient's father is in good health Family history of lymphoma Hypertension Family history of cardiovascular disease Acute myocardial infarction Family history of arthritis Grandparent Carcinoma of colon Hypertension Depression Anxiety Heart problem Cerebrovascular accident Disorder of thyroid Social History Social History (Reviewed 01/31/22 @ 09:31 by Kelsey Rey [facility]) Smoking packs per day: 0.5 Smoking cigarettes per day: 10.0 Years smoked: 24 Smoking pack-years: 12.00 Smoking status: Current every day smoker Tobacco type: cigarettes Second hand tobacco smoke exposure: Yes Alcohol intake: current Alcohol use details: Social Substance use: never Substance use type: does not use Gender identity (if verbalized by the patient): Female Exam Narrative: GENERAL: Well-appearing, well-nourished, and in no acute distress. HEAD: Normocephalic, atraumatic. EYES: EOMI. CHEST: Clear to auscultation. No respiratory distress. No wheezes rales or rhonchi HEART: Regular rate and rhythm. No murmur heard. Normal peripheral pulses. BACK: No midline thoracic spine tenderness. Tender to palpation of midline lumbar spine EXTREMITIES: Normal range of motion. No edema. Strength equal in bilateral lower extremities (5/5). Normal DP pulses. Normal sensation SKIN: Warm, dry, no rash. NEURO: No focal deficits. Alert and oriented x3. Normal gait PSYCH: Normal mood and affect
[2022-07-28] MEDS: HYDROcodone/acetaminophen (*CRX) 5-325 MG TABLET 1 TAB PO (11:23)
[2022-07-28 13:12] VITALS: BP 159/97; PULSE 81; RESP 16; O2SAT 100
== END 2022-07-28 13:14 | disposition home or self-care (01) ==
PROVIDERS: Emergency Provider Physician Assistant; PCP Internal Medicine
DX: S32.039A Unspecified fracture of third lumbar vertebra, initial encounter for closed fracture (principal); S32.049A Unspecified fracture of fourth lumbar vertebra, initial encounter for closed fracture; F17.210 Nicotine dependence, cigarettes, uncomplicated; F41.9 Anxiety disorder, unspecified; M19.90 Unspecified osteoarthritis, unspecified site; K21.9 Gastro-esophageal reflux disease without esophagitis; I10 Essential (primary) hypertension; Z87.442 Personal history of urinary calculi; W10.9XXA Fall (on) (from) unspecified stairs and steps, initial encounter
CPT/HCPCS: 72131; 73502; 99284; A9270

== ENCOUNTER 2022-10-02 17:03 | Emergency (ER) | payer OTHER, SELFPAY ==
[2022-10-02 17:14] VITALS: BP 178/95; PULSE 97; RESP 16; TEMP 37.3; O2SAT 98
--- NOTE | 2022-10-02 17:18 | ED.URI ---
HPI - URI/Sore Throat General Chief Complaint: Upper Respiratory Infection Stated Complaint: congestion; productive cough; runny nose Source: patient and RN notes reviewed History of Present Illness HPI Narrative: 52-year-old female presents to urgent care with complaints congestion, pressure in her left ear, and cough x3 days. Patient denies any fevers, chills sore throat chest pain vomiting, or diarrhea. Patient has been taking NyQuil, DayQuil, and Mucinex at home without relief. Some parts of this dictation were generated by voice recognition software and may contain typographical and/or grammatical inaccuracies. Related Data Home Medications Medication Instructions Recorded Confirmed multivitamin (Daily Vitamin 1 tablet PO DAILY 06/17/19 10/02/22 Formula tablet) simethicone 125 mg capsule (Gas 125 mg PO DAILY PRN Pain 11/01/21 10/02/22 Relief (simethicone)) loratadine 10 mg tablet (Claritin) 10 mg PO DAILY 12/13/21 10/02/22 omega 2-jxh-sge-fish oil 100 1 cap PO DAILY 01/31/22 10/02/22 mg-160 mg-1,000 mg capsule (Fish Oil) Allergies Allergy/AdvReac Type Severity Reaction Status Date / Time No Known Allergies Allergy Verified 10/02/22 17:10 Review of Systems Review of Systems: Pertinent positives and pertinent negatives per HPI. [facility] Past Medical History Medical History (Updated 10/02/22 @ 17:34 by Jessica Klein, RICARDO) Anxiety Arthritis Bilateral hand pain Bronchitis Chronic back pain GERD (gastroesophageal reflux disease) History of chemotherapy Hypertension IBS (irritable bowel syndrome) Inflammatory arthritis (~2018) Kidney stones Polycystic ovarian disease Seasonal allergies Strain of right gastrocnemius muscle (~02/2019) Surgical History Surgical History H/O dilation and curettage H/O ovarian cystectomy History of cholecystectomy History of hysterectomy Family History Family History Mother Patient's mother is in good health Family history of cardiovascular disease Family history of arthritis Family history of atrial fibrillation Breast cancer Hypertension Father Patient's father is in good health Family history of lymphoma Hypertension Family history of cardiovascular disease Acute myocardial infarction Family history of arthritis Grandparent Carcinoma of colon Hypertension Depression Anxiety Heart problem Cerebrovascular accident Disorder of thyroid Social History Social History Smoking packs per day: 0.5 Smoking cigarettes per day: 10.0 Years smoked: 24 Smoking pack-years: 12.00 Smoking status: Current every day smoker Tobacco type: cigarettes Second hand tobacco smoke exposure: Yes Alcohol intake: former Alcohol use details: Social Substance use: never Substance use type: does not use Gender identity (if verbalized by the patient): Female Comments At the time of my signature, I reviewed and agree with the nursing past medical, surgical, social, and family history. There is no relevant family history pertinent to the patient complaint. Exam Narrative: GENERAL: This is a well-nourished, well-developed patient, in no apparent distress. HEAD: normocephalic, atraumatic. EYES: Sclera clear/white. Vision is grossly intact. EARS: External ears normal, auditory canals clear and without drainage, TMs normal without perforation. Hearing grossly intact. NOSE:congested THROAT: Mucous membranes moist, posterior pharynx clear. NECK: Neck supple, non-tender without lymphadenopathy, masses or thyromegaly. CARDIOVASCULAR: Regular rate and rhythm without murmurs, gallops, or rubs. RESPIRATORY: Clear to auscultation. Breath sounds equal bilaterally. No wheezes, rales, or rhonchi. SKIN: warm, intact with no suspicious lesions or rash, good texture and turgor. NE
== END 2022-10-02 17:53 | disposition home or self-care (01) ==
PROVIDERS: Emergency Provider Nurse Practitioner Family; PCP Internal Medicine
DX: J40 Bronchitis, not specified as acute or chronic (principal); J06.9 Acute upper respiratory infection, unspecified; F17.210 Nicotine dependence, cigarettes, uncomplicated; I10 Essential (primary) hypertension; E28.2 Polycystic ovarian syndrome; M13.80 Other specified arthritis, unspecified site
CPT/HCPCS: 99213; G0463

== ENCOUNTER 2022-11-21 20:49 | Emergency (ER) | payer OTHER, SELFPAY ==
[2022-11-21] VITALS (12 sets, daily range): BP systolic 157–172; BP diastolic 90–113; PULSE 84–112; RESP 16–18; TEMP 36.6; O2SAT 93–97
--- NOTE | ~2022-11-21 | CT_ITS ---
EXAMINATION: CT abdomen pelvis w con DATE: 11/21/2022 22:10 INDICATION: Left lower quadrant abdominal pain. TECHNIQUE: Computed tomography (CT) of the abdomen and pelvis was performed with 100 mL Omnipaque 350 intravenous contrast. Automated exposure control and iterative reconstruction technique were employe d. The dose-length product was 419.47 mGy-cm. COMPARISON: CT abdomen and pelvis 04/02/2022 FINDINGS: The visualized portions of the lung bases demonstrate mild atelectasis. No pleural effusion . The heart size is normal. No pericardial effusion. The liver is normal. There are changes of cholec ystectomy. The spleen, pancreas, adrenal glands, and kidneys are normal. There are no dilated loops o f bowel. There are scattered diverticula in the colon. There is fat stranding around a diverticulum o f descending colon, consistent with diverticulitis. The appendix is normal. There is mild aortic athe rosclerosis. There are no pathologically enlarged lymph nodes. There is no free intraperitoneal fluid . There is mild thoracic and lumbar spondylosis. IMPRESSION: 1. Acute diverticulitis of descending colon. No perforation or abscess. Reviewed, dictated and finalized at location E.
[2022-11-21 21:25] LABS: Basophils Absolute Auto 0.1 K/mm3 (0.0-0.1); Basophils Percent Auto 0.5 % (0.2-1.2); Eosinophils Absolute Auto 0.2 K/mm3 (0-0.3); Hematocrit 38.3 % (37.0-47.0); Immature Granulocyte Absolute 0.04 K/mm3 (0.00-0.031); Immature Granulocyte Percent A 0.3 % (0-0.5); Lymphocytes Percent Auto 34.7 % (18.3-44.2); Mean Corpuscular HGB Conc 33.9 g/dl (32-36); Mean Corpuscular Hemoglobin 31.2 pg (26-34); Mean Corpuscular Volume 91.8 fl (80-100); Mean Platelet Volume 9.5 fl (7.4-10.4); Monocytes Absolute Auto 0.7 K/mm3 (0.1-0.6); Monocytes Percent Auto 5.9 % (2.6-8.5); Neutrophils Absolute Auto 6.8 K/mm3 (1.3-6.7); Neutrophils Percent Auto 56.6 % (45.5-73.1); Platelet Count Result 294 k/mm3 (150-375); Red Blood Count 4.17 M/mm3 (4.2-5.4); White Blood Count 12.1 K/mm3 (4.5-10.0)
[2022-11-21 21:37] LABS: Lactic Acid Reflex 1.6 mmol/L (0.7-2.0)
[2022-11-21 21:50] LABS: Alanine Aminotransferase 34 U/L (6-35); Albumin Level 4.4 g/dL (3.5-5.1); Alkaline Phosphatase 53 U/L (38-126); Anion Gap 8 mmol/L (8-16); Aspartate Amino Transferase 42 U/L (14-36); Bilirubin,Total 0.5 mg/dL (0.2-1.3); Blood Urea Nitrogen 12 mg/dL (7-17); Carbon Dioxide 30 mmol/L (22-30); Chloride 100 mmol/L (98-107); Estimated CRCL calculation 77 ml/min; Estimated Glomerular Filt Rate > 60; Glucose 109 mg/dL (65-110); Potassium 3.4 mmol/L (3.4-5.0); Sodium 138 mmol/L (137-145)
[2022-11-21 22:14] LABS: Appearance Urine Clear (Clear); Bacteria Urine Rare /hpf; Bilirubin Urine Negative (Negative); Blood Urine Negative (Negative); Color Urine Yellow (Yellow); Glucose Urine UA Negative (Negative); Ketones Urine Negative (Negative); Leukocyte Esterase Ur Negative LEU/UL (Negative); Nitrate Urine Negative (Negative); Protein Urine 1+ mg/dL (Negative); RBC Urine 0-2 /hpf (0-2); Specific Grav Ur 1.019 (1.001-1.035); Squamous Epithelial Cell Urine Few /hpf (Few); WBC Urine 0-5 /hpf
[2022-11-21 22:24] LABS: Add Urine Microscopic? YES
--- NOTE | 2022-11-21 22:31 | ED.ABDPAIN ---
HPI - Abdominal Pain General Chief Complaint: Abdominal Pain Stated Complaint: abdominal pain Time Seen by Provider: 11/21/22 20:56 Source: patient Mode of arrival: ambulatory Limitations: no limitations History of Present Illness HPI narrative: 52-year-old with a history of hypertension here with complaints of left-sided abdominal pain for past 3 days associated with diarrhea at times mucousy in nature. She denies any blood. No history of fever or chills. MD elicited complaint: abdominal pain Pertinent past history: none Onset (ago): day(s) (3) Pain Consistency: constant Location: LLQ Severity: moderate Quality: aching Radiation: LLQ Migration to: no migration Exacerbating factors: nothing Relieving factors: nothing Associated symptoms: diarrhea Related Data Home Medications Medication Instructions Recorded Confirmed multivitamin (Daily Vitamin 1 tablet PO DAILY 06/17/19 10/02/22 Formula tablet) simethicone 125 mg capsule (Gas 125 mg PO DAILY PRN Pain 11/01/21 10/02/22 Relief (simethicone)) loratadine 10 mg tablet (Claritin) 10 mg PO DAILY 12/13/21 10/02/22 omega 3-suw-ehj-fish oil 100 1 cap PO DAILY 01/31/22 10/02/22 mg-160 mg-1,000 mg capsule (Fish Oil) Allergies Allergy/AdvReac Type Severity Reaction Status Date / Time No Known Allergies Allergy Verified 10/02/22 17:10 Review of Systems Review of Systems: All systems reviewed & are unremarkable except as noted in HPI and below Constitutional: Constitutional: Reports no additional constitutional complaints Eyes: Eyes: Reports no additional eye complaints ENT: Reports system reviewed and no additional complaints, except as documented Cardiovascular: Cardiovascular: Reports no additional cardiovascular complaints Respiratory: Respiratory: Reports no additional respiratory complaints Gastrointestinal: Gastrointestinal: Reports as per HPI Musculoskeletal: Musculoskeletal: Reports no additional musculoskeletal complaints Integumentary/Breasts: Skin/Breast: Reports system reviewed and no additional complaints, except as docu Neurologic: Reports system reviewed and no additional complaints, except as documented PMFSH Past Medical History Medical History Anxiety Arthritis Bilateral hand pain Bronchitis Chronic back pain GERD (gastroesophageal reflux disease) History of chemotherapy Hypertension IBS (irritable bowel syndrome) Inflammatory arthritis (~2018) Kidney stones Polycystic ovarian disease Seasonal allergies Strain of right gastrocnemius muscle (~02/2019) Surgical History Surgical History H/O dilation and curettage H/O ovarian cystectomy History of cholecystectomy History of hysterectomy Family History Family History Mother Patient's mother is in good health Family history of cardiovascular disease Family history of arthritis Family history of atrial fibrillation Breast cancer Hypertension Father Patient's father is in good health Family history of lymphoma Hypertension Family history of cardiovascular disease Acute myocardial infarction Family history of arthritis Grandparent Carcinoma of colon Hypertension Depression Anxiety Heart problem Cerebrovascular accident Disorder of thyroid Social History Social History Smoking packs per day: 0.5 Smoking cigarettes per day: 10.0 Years smoked: 24 Smoking pack-years: 12.00 Smoking status: Current every day smoker Tobacco type: cigarettes Second hand tobacco smoke exposure: Yes Alcohol intake: former Alcohol use details: Social Substance use: never Substance use type: does not use Gender identity (if verbalized by the patient): Female Exam Narrative: GENERAL: Well-appearing, well-nourished, and in no acute
[2022-11-21] MEDS: HYDROcodone/acetaminophen (*CRX) 5-325 MG TABLET 1 TAB PO (22:45)
== END 2022-11-21 23:11 | disposition home or self-care (01) ==
PROVIDERS: Emergency Provider Family Medicine; PCP Internal Medicine
DX: K57.32 Diverticulitis of large intestine without perforation or abscess without bleeding (principal); I10 Essential (primary) hypertension; F17.210 Nicotine dependence, cigarettes, uncomplicated
CPT/HCPCS: 36415; 74177; 80053; 81001; 83605; 85025; 99284; A9270; Q9967

== ENCOUNTER 2023-02-06 14:18 | Outpatient (CLI) | payer OTHER, SELFPAY ==
[2023-02-06 15:58] LABS: Basophils Absolute Auto 0.1 K/mm3 (0.0-0.1); Basophils Percent Auto 0.7 % (0.2-1.2); Eosinophils Absolute Auto 0.4 K/mm3 (0-0.3); Eosinophils Percent Auto 2.8 % (0-4.4); Hematocrit 41.5 % (37.0-47.0); Hematocrit 41.9 % (37.0-47.0); Hemoglobin 14.1 g/dL (12.0-15.0); Hemoglobin 14.2 g/dL (12.0-15.0); Immature Granulocyte Absolute 0.07 K/mm3 (0.00-0.031); Immature Granulocyte Percent A 0.5 % (0-0.5); Lymphocytes Absolute Auto 3.31 K/mm3 (0.9-3.2); Lymphocytes Percent Auto 25.1 % (18.3-44.2); Mean Corpuscular HGB Conc 33.7 g/dl (32-36); Mean Corpuscular HGB Conc 34.2 g/dl (32-36); Mean Corpuscular Hemoglobin 31.1 pg (26-34); Mean Corpuscular Hemoglobin 31.3 pg (26-34); Mean Corpuscular Volume 91.4 fl (80-100); Mean Corpuscular Volume 92.3 fl (80-100); Mean Platelet Volume 9.7 fl (7.4-10.4); Monocytes Absolute Auto 0.5 K/mm3 (0.1-0.6); Monocytes Percent Auto 3.7 % (2.6-8.5); Neutrophils Absolute Auto 8.9 K/mm3 (1.3-6.7); Neutrophils Percent Auto 67.2 % (45.5-73.1); Platelet Count Result 331 k/mm3 (150-375); Platelet Count Result 333 k/mm3 (150-375); Red Blood Count 4.54 M/mm3 (4.2-5.4); Red Cell Distribution Width 12.3 % (11.5-14.5); Red Cell Distribution Width 12.4 % (11.5-14.5); White Blood Count 13.2 K/mm3 (4.5-10.0)
[2023-02-06 16:09] LABS: Alanine Aminotransferase 24 U/L (6-35); Albumin Level 4.8 g/dL (3.5-5.1); Alkaline Phosphatase 55 U/L (38-126); Anion Gap 9 mmol/L (8-16); Aspartate Amino Transferase 32 U/L (14-36); Bilirubin,Total 0.6 mg/dL (0.2-1.3); Blood Urea Nitrogen 15 mg/dL (7-17); Calcium 9.1 mg/dL (8.4-10.2); Carbon Dioxide 26 mmol/L (22-30); Chloride 104 mmol/L (98-107); Cholesterol 192 mg/dL (0-200); Estimated Glomerular Filt Rate > 60; Glucose 89 mg/dL (65-110); HDL Direct 53 mg/dL; Potassium 3.2 mmol/L (3.4-5.0); Sodium 139 mmol/L (137-145); Triglycerides 328 mg/dL (<150)
[2023-02-06 16:14] LABS: CRP < 0.5 mg/dL (<1.0)
[2023-02-06 16:20] LABS: LDL Cholesterol Direct 90 mg/dL
[2023-02-06 16:39] LABS: Thyroid Stimulating Hormone 0.852 uIU/mL (0.465-4.680)
[2023-02-06 16:56] LABS: Vitamin D 25 Hydroxy 36.1 ng/mL
[2023-02-06 16:58] LABS: Erythrocyte Sedimentation Rate 18 mm/hr (0-20)
[2023-02-06 17:10] LABS: Thyroid Stimulating Hormone Reflex 0.857 uIU/mL (0.465-4.68)
[2023-02-11 19:45] LABS: Immunoglobulin A 314 mg/dL (47-310); TTG IGA AB <1.0 U/mL (<15.0)
== END 2023-02-06 14:19 | disposition home or self-care (01) ==
PROVIDERS: PCP Nurse Practitioner Family; Referring Provider Nurse Practitioner; Visit Provider Nurse Practitioner Family
DX: K57.92 Diverticulitis of intestine, part unspecified, without perforation or abscess without bleeding (principal); K58.0 Irritable bowel syndrome with diarrhea; E87.6 Hypokalemia; F32.9 Major depressive disorder, single episode, unspecified; F41.9 Anxiety disorder, unspecified; I10 Essential (primary) hypertension; K57.32 Diverticulitis of large intestine without perforation or abscess without bleeding; S32.009A Unspecified fracture of unspecified lumbar vertebra, initial encounter for closed fracture; E50.9 Vitamin A deficiency, unspecified; M15.9 Polyosteoarthritis, unspecified; E78.5 Hyperlipidemia, unspecified; R53.83 Other fatigue; X58.XXXA Exposure to other specified factors, initial encounter
CPT/HCPCS: 36415; 80053; 80061; 82306; 82784; 84443; 85025; 85027; 85652; 86140; 86364

== ENCOUNTER 2023-02-16 13:06 | Outpatient (CLI) | payer OTHER, SELFPAY ==
--- NOTE | ~2023-02-16 | CT_ITS ---
EXAMINATION: CT lumbar spine wo con DATE: 02/16/2023 13:29 INDICATION: Unspecified fracture of unspecified lumbar vertebra. TECHNIQUE: Computed tomography (CT) of the lumbar spine was performed without intravenous contrast. A utomated exposure control and iterative reconstruction technique were employed. The dose-length produ ct was 506.20 mGy-cm. COMPARISON: CT lumbar spine 07/28/2022, chest CT 04/02/2022 FINDINGS: There are hypoplastic ribs at L1. S1 is a transitional segment. There is a healing fracture of right L2 transverse process with callus formation. There are ununited fractures of right L3 and L 4 transverse processes with nonunion. There is 4 degrees dextrocurvature of lumbar spine. There is mi ld chronic anterior wedging of T12 vertebral body, likely physiologic. Intervertebral disc heights ar e normal. The following disc levels are specifically discussed: L1-L2: The disc does not extend beyond the endplate margin. There is mild bilateral facet joint osteo arthritis. There is no neural foraminal stenosis. There is no central canal stenosis. L2-L3: The disc does not extend beyond the endplate margin. There is mild bilateral facet joint osteo arthritis. There is no neural foraminal stenosis. There is no central canal stenosis. L3-L4: There is a right foraminal protrusion. There is mild bilateral facet joint osteoarthritis. The re is mild right neural foraminal stenosis. There is no central canal stenosis. L4-L5: The disc is bulging. There is severe right and moderate left facet joint osteoarthritis. There is mild bilateral neural foraminal stenosis. There is mild central canal stenosis. L5-S1: The disc is bulging. There is severe bilateral facet joint osteoarthritis. There is mild bilat eral neural foraminal stenosis. There is mild central canal stenosis. IMPRESSION: 1. Healing fracture of right transverse process of L2. 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 2. Mild lumbar spondylosis. Reviewed, dictated and finalized at location A. IMPRESSION: 1. Healing fracture of right transverse process of L2. Old fractures of right t ransverse processes of L3 and L4 with nonunion. 2. Mild lumbar spondylosis.
== END 2023-02-16 13:07 | disposition home or self-care (01) ==
PROVIDERS: PCP Nurse Practitioner Family; Visit Provider Nurse Practitioner Family
DX: S32.009A Unspecified fracture of unspecified lumbar vertebra, initial encounter for closed fracture (principal); X58.XXXA Exposure to other specified factors, initial encounter; M47.896 Other spondylosis, lumbar region
CPT/HCPCS: 72131

== ENCOUNTER 2023-03-13 05:19 | Day surgery (SDC) | payer OTHER, SELFPAY ==
[2023-03-09 13:16] VITALS: BMI 28.5
--- NOTE | 2023-03-12 13:09 | WPDANESEPPF ---
Anes - Initial Pre Proc Eval Procedure: Operation Date: 03/13/23 10:00 Proposed Procedures p Colonoscopy - Noe Dasilva MD Date/Time: 03/12/23 13:09 Surgeon: Noe Dasilva MD Pre Op Diagnosis: Diverticulitis,Irritable bowel syndrome diarrhea Patient Data Age: 53 Gender: F Height: 1.6 m Weight: 73 kg Allergies Allergy/AdvReac Type Severity Reaction Status Date / Time No Known Allergies Allergy Verified 03/13/23 08:51 Home Medications Medication Instructions Recorded Confirmed Type multivitamin (Daily Vitamin 1 tablet PO DAILY 06/17/19 03/13/23 History Formula tablet) esomeprazole magnesium 40 mg 40 mg PO DAILY #90 caps 04/25/20 03/13/23 Rx capsule,delayed release simethicone 125 mg capsule (Gas 125 mg PO DAILY PRN Pain 11/01/21 03/13/23 History Relief (simethicone)) loratadine 10 mg tablet (Claritin) 10 mg PO DAILY 12/13/21 03/13/23 History omega 6-jti-dar-fish oil 100 1 cap PO DAILY 01/31/22 03/13/23 History mg-160 mg-1,000 mg capsule (Fish Oil) duloxetine 60 mg capsule,delayed 60 mg PO BID #60 ea 04/15/22 03/13/23 Rx release albuterol sulfate 90 mcg/actuation 2 puff inhalation QID PRN 10/02/22 03/13/23 Rx aerosol inhaler shortness of breath or wheezing #8.5 grams lisinopril 20 1 tablet PO DAILY #90 tabs 11/26/22 03/13/23 Rx mg-hydrochlorothiazide 12.5 mg tablet rosuvastatin 5 mg tablet (Crestor) 5 mg PO DAILY #90 tabs 11/26/22 03/13/23 Rx dicyclomine 20 mg tablet See Rx Instructions .Route 01/26/23 03/13/23 Rx .COMPLEX #60 tabs metoprolol succinate 25 mg See Rx Instructions .Route 01/26/23 03/13/23 Rx tablet,extended release 24 hr .COMPLEX #90 tabs naproxen 500 mg tablet See Rx Instructions .Route 02/16/23 03/13/23 Rx .COMPLEX #60 tabs valacyclovir 1 gram tablet 2,000 mg PO BID PRN fever blister 10/30/23 11/03/23 History (Valtrex) Patient hx anesthesia problems: none Family hx anesthesia problems: none Results Review: All pre-operative results and documents have been reviewed as part of the pre-operative evaluation. [facility] [place] Past Medical History Medical History Acute diverticulitis of intestine Anxiety Arthritis Bilateral hand pain Bronchitis Chronic back pain Diverticulitis of sigmoid colon GERD (gastroesophageal reflux disease) History of chemotherapy Hypertension IBS (irritable bowel syndrome) Inflammatory arthritis (~2018) Irritable bowel syndrome with diarrhea Kidney stones Obesity Polycystic ovarian disease Seasonal allergies Strain of right gastrocnemius muscle (~02/2019) Surgical History Surgical History H/O dilation and curettage H/O ovarian cystectomy History of cholecystectomy History of hysterectomy Family History Family History Mother Patient's mother is in good health Family history of cardiovascular disease Family history of arthritis Family history of atrial fibrillation Breast cancer Hypertension Father Patient's father is in good health Family history of lymphoma Hypertension Family history of cardiovascular disease Acute myocardial infarction Family history of arthritis Grandparent Carcinoma of colon Hypertension Depression Anxiety Heart problem Cerebrovascular accident Disorder of thyroid Social History Social History Smoking packs per day: 0.5 Smoking cigarettes per day: 10.0 Years smoked: 30 Smoking pack-years: 15.00 Smoking status: Current every day smoker Tobacco type: cigarettes Second hand tobacco smoke exposure: Yes Alcohol intake: former Alcohol use details: Social Substance use: never Substance use type: does not use Lack of Transportation: No Lack of Food: Never True Current Housing: I Have Housing Concerned About Futur
--- NOTE | 2023-03-12 15:22 | PM.HPGS ---
History of Present Illness History of Present Illness Consent: Risks, benefits, and alternatives have been discussed and questions answered. Patient agrees to proceed with procedure. Chief complaint: Diverticulitis,Irritable bowel syndrome diarrhea Narrative: Alley Watson is a 53 year old female Was referred because of a recent episode of up clinically appeared to be diverticulitis. She did respond to antibiotics. CT scan had showed There are scattered diverticula in the colon. There is fat stranding around a diverticulum of descending colon, consistent with diverticulitis. ? Review of Systems Review of Systems: All systems reviewed & are unremarkable except as noted in HPI and below PMFSH Past Medical History Medical History Acute diverticulitis of intestine Anxiety Arthritis Bilateral hand pain Bronchitis Chronic back pain Diverticulitis of sigmoid colon GERD (gastroesophageal reflux disease) History of chemotherapy Hypertension IBS (irritable bowel syndrome) Inflammatory arthritis (~2018) Irritable bowel syndrome with diarrhea Kidney stones Obesity Polycystic ovarian disease Seasonal allergies Strain of right gastrocnemius muscle (~02/2019) Surgical History Surgical History H/O dilation and curettage H/O ovarian cystectomy History of cholecystectomy History of hysterectomy Family History Family History Mother Patient's mother is in good health Family history of cardiovascular disease Family history of arthritis Family history of atrial fibrillation Breast cancer Hypertension Father Patient's father is in good health Family history of lymphoma Hypertension Family history of cardiovascular disease Acute myocardial infarction Family history of arthritis Grandparent Carcinoma of colon Hypertension Depression Anxiety Heart problem Cerebrovascular accident Disorder of thyroid Social History Social History Smoking packs per day: 0.5 Smoking cigarettes per day: 10.0 Years smoked: 30 Smoking pack-years: 15.00 Smoking status: Current every day smoker Tobacco type: cigarettes Second hand tobacco smoke exposure: Yes Alcohol intake: former Alcohol use details: Social Substance use: never Substance use type: does not use Lack of Transportation: No Lack of Food: Never True Current Housing: I Have Housing Concerned About Future Housing: No Difficulty Paying Gas/Electric Bills: No Difficulty Paying for Meds: No Currently Unemployed: No Education: Associate Degree Difficulty w/ Childcare or Family Care: No Gender identity (if verbalized by the patient): Female Meds Home Medications and Allergies Home Medications Medication Instructions Recorded Confirmed Type multivitamin (Daily Vitamin 1 tablet PO DAILY 06/17/19 03/13/23 History Formula tablet) esomeprazole magnesium 40 mg 40 mg PO DAILY #90 caps 04/25/20 03/13/23 Rx capsule,delayed release simethicone 125 mg capsule (Gas 125 mg PO DAILY PRN Pain 11/01/21 03/13/23 History Relief (simethicone)) loratadine 10 mg tablet (Claritin) 10 mg PO DAILY 12/13/21 03/13/23 History omega 3-fyc-rsw-fish oil 100 1 cap PO DAILY 01/31/22 03/13/23 History mg-160 mg-1,000 mg capsule (Fish Oil) duloxetine 60 mg capsule,delayed 60 mg PO BID #60 ea 04/15/22 03/13/23 Rx release albuterol sulfate 90 mcg/actuation 2 puff inhalation QID PRN 10/02/22 03/13/23 Rx aerosol inhaler shortness of breath or wheezing #8.5 grams lisinopril 20 1 tablet PO DAILY #90 tabs 11/26/22 03/13/23 Rx mg-hydrochlorothiazide 12.5 mg tablet rosuvastatin 5 mg tablet (Crestor) 5 mg PO DAILY #90 tabs 11/26/22 03/13/23 Rx dicyclomine 20 mg tablet See Rx Instructions .Route 01/26/23 03/13/23 Jose
[2023-03-13 08:52] VITALS: BP 141/91; PULSE 100; RESP 18; TEMP 36.9; O2SAT 99; BMI 27.8
[2023-03-13] MEDS: LACTATED RINGERS 1,000 ML 150 ML IV CONT (09:04)
[2023-03-13 10:06] VITALS: BP 125/81; PULSE 98; RESP 20; O2SAT 98
[2023-03-13 10:16] VITALS: BP 139/85; PULSE 89; RESP 19; O2SAT 100
[2023-03-13 10:36] VITALS: BP 144/90; PULSE 89; RESP 17; O2SAT 100
== END 2023-03-13 10:40 | disposition home or self-care (01) ==
PROVIDERS: PCP Nurse Practitioner Family; Visit Provider Internal Medicine Gastroenterology
PROC: 0DJD8ZZ Inspection of Lower Intestinal Tract, Via Natural or Artificial Opening Endoscopic (ICD-10-PCS; CPT 45378; principal; 2023-03-13 10:00)
DX: Z09 Encounter for follow-up examination after completed treatment for conditions other than malignant neoplasm (principal); K57.30 Diverticulosis of large intestine without perforation or abscess without bleeding; K64.8 Other hemorrhoids; Z87.19 Personal history of other diseases of the digestive system; K58.0 Irritable bowel syndrome with diarrhea; I10 Essential (primary) hypertension; K21.9 Gastro-esophageal reflux disease without esophagitis; F17.210 Nicotine dependence, cigarettes, uncomplicated; Z79.51 Long term (current) use of inhaled steroids
CPT/HCPCS: 45378; J2704; J7120

== ENCOUNTER 2023-03-31 09:47 | Emergency (ER) | payer OTHER, SELFPAY ==
[2023-03-31 10:03] VITALS: BP 163/86; PULSE 91; RESP 16; TEMP 36.7; O2SAT 100
--- NOTE | 2023-03-31 10:05 | ED.FEMALEGU ---
HPI - Female Genitourinary General Chief complaint: Urogenital-Female Stated complaint: UTI Time Seen by Provider: 03/31/23 10:05 Source: patient, RN notes reviewed and old records reviewed Mode of arrival: ambulatory Limitations: no limitations History of Present Illness HPI Narrative: 53-year-old female presents to the [facility] with complaints of a UTI. Patient reports frequency, urgency, burning with urination that started this morning. Reports history of UTIs. Denies any CVA tenderness. Does report low back pain, suprapubic tenderness or pressure Denies fevers, nausea, vomiting, diarrhea or chest pain Onset (ago): hour(s) Related Data Home Medications Medication Instructions Recorded Confirmed multivitamin (Daily Vitamin 1 tablet PO DAILY 06/17/19 03/31/23 Formula tablet) simethicone 125 mg capsule (Gas 125 mg PO DAILY PRN Pain 11/01/21 03/31/23 Relief (simethicone)) loratadine 10 mg tablet (Claritin) 10 mg PO DAILY 12/13/21 03/31/23 omega 6-oiy-zyg-fish oil 100 1 cap PO DAILY 01/31/22 03/31/23 mg-160 mg-1,000 mg capsule (Fish Oil) valacyclovir 1 gram tablet 2,000 mg PO BID PRN fever blister 03/09/23 03/31/23 (Valtrex) Allergies Allergy/AdvReac Type Severity Reaction Status Date / Time No Known Allergies Allergy Verified 03/31/23 10:03 Review of Systems Review of Systems: All systems reviewed & are unremarkable except as noted in HPI and below Constitutional: Constitutional: Reports no additional constitutional complaints Eyes: Eyes: Reports no additional eye complaints ENT: Reports system reviewed and no additional complaints, except as documented Cardiovascular: Cardiovascular: Reports no additional cardiovascular complaints, Denies chest pain and Denies dyspnea Respiratory: Respiratory: Reports no additional respiratory complaints, Denies chest congestion, Denies cough and Denies dyspnea Gastrointestinal: Gastrointestinal: Reports no additional gastrointestinal complaints, Denies abdominal pain, Denies nausea and Denies vomiting Genitourinary: Genitourinary: Reports as per HPI and Reports dysuria Musculoskeletal: Musculoskeletal: Reports no additional musculoskeletal complaints Integumentary/Breasts: Skin/Breast: Reports system reviewed and no additional complaints, except as docu Neurologic: Reports system reviewed and no additional complaints, except as documented Psychiatric: Psychiatric: Reports no additional psychiatric complaints Allergic/Immunologic: Allergic/Immunologic: Reports no additional allergic/immunologic complaints [facility] Past Medical History Medical History Acute diverticulitis of intestine Anxiety Arthritis Bilateral hand pain Bronchitis Chronic back pain Diverticulitis of sigmoid colon GERD (gastroesophageal reflux disease) History of chemotherapy Hypertension IBS (irritable bowel syndrome) Inflammatory arthritis (~2018) Irritable bowel syndrome with diarrhea Kidney stones Obesity Polycystic ovarian disease Seasonal allergies Strain of right gastrocnemius muscle (~02/2019) Surgical History Surgical History H/O dilation and curettage H/O ovarian cystectomy History of cholecystectomy History of hysterectomy Family History Family History Mother Patient's mother is in good health Family history of cardiovascular disease Family history of arthritis Family history of atrial fibrillation Breast cancer Hypertension Father Patient's father is in good health Family history of lymphoma Hypertension Family history of cardiovascular disease Acute myocardial infarction Family history of arthritis Grandparent Carcinoma of colon Hypertension Depression Anxiety Heart problem Cerebrovascular accident Disorder of thyroid Social History Social History (Reviewed
== END 2023-03-31 10:24 | disposition home or self-care (01) ==
PROVIDERS: Emergency Provider Nurse Practitioner; PCP Nurse Practitioner Family
DX: N39.0 Urinary tract infection, site not specified (principal); I10 Essential (primary) hypertension; F17.210 Nicotine dependence, cigarettes, uncomplicated; Z79.899 Other long term (current) drug therapy
CPT/HCPCS: 81003; 87077; 87086; 87088; 99213; G0463

== ENCOUNTER 2023-04-17 08:53 | Outpatient (CLI) | payer OTHER, SELFPAY ==
--- NOTE | ~2023-04-17 | DEXA_ITS ---
Bone Density Report Name: SEVEN GROSS Age: 53 Sex: Female Ethnicity: White Date of : 1970 Indication: postmenopausal; screening for osteoporosis; inflammatory bowel disease; prior fracture; hysterectomy; Referring Provider: SEVEN EDMONDS Study: Bone densitometry was performed. Exam Date: April 17, 2023 Accession number: [id number] Bone Density: Region BMD T-score Z-score Classification AP Spine(L1-L4) 1.102 0.5 1.3 Normal Femoral Neck (Left) 0.979 1.2 2.0 Normal Total Hip (Left) 1.052 0.9 1.4 Normal Femoral Neck (Right) 1.002 1.4 2.2 Normal Total Hip (Right) 1.102 1.3 1.8 Normal Total Hip Mean 1.077 1.1 1.6 Normal World Health Organization criteria for BMD impression classify patients as: Normal (T-score at or above -1.0), Osteopenia (T-score between -1.0 and -2.5), or Osteoporosis (T-score at or below -2.5). 10-year Fracture Risk: FRAX not reported because: All T-scores for Spine Total, Hip Total, Femoral Neck at or above -1.0 Clinical Information Provided by Patient: Has had a low trauma fracture Smokes Has the following medical conditions: Inflammatory bowel diseases, Hysterectomy Patient maximum height was 62 Menopause Age: 44 Drinks caffeinated beverages Onset of menses at age 16 Number of children 2 Missed period for more than 6 months in a row Impression: The patient has normal bone mass. The patient has risk factors, including: smoking, previous fracture. Discussion: BONE DENSITY IS ABOVE THE MINIMUM DESIRABLE LEVEL AT ALL SKELETAL SITES TESTED. This patient?s bone mineral density is above the minimum desirable level (T-score -1.0 or better) at all sites measured. The patient should follow a healthful lifestyle (good nutrition with adequate calcium and vitamin D, and appropriate weight-bearing exercise). Follow-Up: Consider repeating this study in 5 years or sooner if there is some new clinical indication. Reported by: [facility] on 04/17/2023 9:20:00 AM. Reviewed, dictated and finalized at location [place]
--- NOTE | ~2023-04-17 | MM_ITS ---
EXAMINATION: MM screening vianca BI w hemalatha HISTORY: Screening mammogram, family history of breast cancer in her mother. TECHNIQUE: Craniocaudal and mediolateral oblique 3-D tomosynthesis images were obtained and synthetic 2-D images were generated. CAD analysis was submitted and interpreted. COMPARISON: 04/12/2019, 07/21/2017, 05/23/2015 BREAST PARENCHYMAL COMPOSITION: There are scattered areas of fibroglandular density. FINDINGS: No suspicious mass, calcification, or architectural distortion are identified in either neptali ast to suggest malignancy. There has been no suspicious interval change. IMPRESSION: 1. No mammographic evidence of malignancy. 2. Recommend routine screening mammography in one year. BI-RADS Category 1: Negative Reviewed, dictated and finalized at location A. AGE WORKER
== END 2023-04-17 08:54 | disposition home or self-care (01) ==
LOC: ANHIMG 08:57
PROVIDERS: PCP Nurse Practitioner Family; Visit Provider Nurse Practitioner Family
DX: Z12.31 Encounter for screening mammogram for malignant neoplasm of breast (principal); Z13.820 Encounter for screening for osteoporosis; Z78.0 Asymptomatic menopausal state
CPT/HCPCS: 77063; 77067; 77080

== ENCOUNTER 2023-05-13 08:20 | Emergency (ER) | payer OTHER, SELFPAY ==
--- NOTE | ~2023-05-13 | XR_ITS ---
Right Hand Technique: PA, oblique, and lateral views were obtained. Clinical History: Injury COMPARISON: 11/25/2019 Findings: No acute fracture or dislocation is seen. Osseous alignment is anatomic. Joint spaces are p reserved. Soft tissues are unremarkable. Impression: No significant abnormality seen. Reviewed, dictated and finalized at [facility] [place]. [employer] Impression: No significant abnormality seen.
--- NOTE | ~2023-05-13 | XR_ITS ---
XR hip RT min 2V DATE: 05/13/2023 08:55 INDICATION: Fall. Landed on right hip. TECHNIQUE: AP pelvis. AP and crosstable lateral views of right hip. COMPARISON: None FINDINGS: There is a transitional lumbosacral vertebra with sacralization on the left, lumbarization on the right. Normal alignment at the pubic symphysis and sacroiliac joints. No pelvic fracture or bone destruction is detected. There is bilateral hip joint space narrowing and spurring at the hip joints consistent with moderatel y severe bilateral hip osteoarthritis. No fracture or dislocation of the right hip is evident. IMPRESSION: Moderately severe bilateral hip osteoarthritis Reviewed, dictated and finalized at location B. WORKER
--- NOTE | 2023-05-13 08:24 | ED.EXTPRO ---
HPI - Extremity Problem General Chief complaint: Fall Stated complaint: right hand/hip injury Time Seen by Provider: 05/13/23 08:24 Source: patient Mode of arrival: ambulatory Limitations: no limitations History of Present Illness HPI Narrative: Teen is a 53-year-old female patient presenting to the clinic today with complaints of right hand and hip injury. She reports she fell when trying to open the door last night around 530. States she had a grandchild and 1 hand in the car seat the other hand and was going out the door backwards and fell. States the child landed on her right hand and she has a bruise to the dorsal hand that is tender. Also reports landing on the right hip. Is having pain to the right lateral hip and through the joint into the pelvis. Is having a lot of pop pain with ambulation/weight-bearing as well as crossing her right leg Related Data Home Medications Medication Instructions Recorded Confirmed multivitamin (Daily Vitamin 1 tablet PO DAILY 06/17/19 05/13/23 Formula tablet) simethicone 125 mg capsule (Gas 125 mg PO DAILY PRN Pain 11/01/21 05/13/23 Relief (simethicone)) loratadine 10 mg tablet (Claritin) 10 mg PO DAILY 12/13/21 05/13/23 omega 4-fla-lea-fish oil 100 1 cap PO DAILY 01/31/22 05/13/23 mg-160 mg-1,000 mg capsule (Fish Oil) valacyclovir 1 gram tablet 2,000 mg PO BID PRN fever blister 03/09/23 05/13/23 (Valtrex) Allergies Allergy/AdvReac Type Severity Reaction Status Date / Time No Known Allergies Allergy Verified 05/13/23 08:30 Review of Systems Review of Systems: Pertinent positives per HPI. Patient denies any fever, chills, rash, headache, visual changes, dizziness, cough, runny nose, sore throat, shortness of breath, chest pain, palpitations, nausea, vomiting, diarrhea, constipation, abdominal pain, or any urinary issues. [facility] Past Medical History Medical History Acute diverticulitis of intestine Anxiety Arthritis Bilateral hand pain Bronchitis Chronic back pain Diverticulitis of sigmoid colon GERD (gastroesophageal reflux disease) History of chemotherapy Hypertension IBS (irritable bowel syndrome) Inflammatory arthritis (~2019) Irritable bowel syndrome with diarrhea Kidney stones Obesity Polycystic ovarian disease Seasonal allergies Strain of right gastrocnemius muscle (~02/2019) Surgical History Surgical History H/O dilation and curettage H/O ovarian cystectomy History of cholecystectomy History of hysterectomy Family History Family History Mother Patient's mother is in good health Family history of cardiovascular disease Family history of arthritis Family history of atrial fibrillation Breast cancer Hypertension Father Patient's father is in good health Family history of lymphoma Hypertension Family history of cardiovascular disease Acute myocardial infarction Family history of arthritis Grandparent Carcinoma of colon Hypertension Depression Anxiety Heart problem Cerebrovascular accident Disorder of thyroid Social History Social History Smoking packs per day: 0.5 Smoking cigarettes per day: 10.0 Years smoked: 30 Smoking pack-years: 15.00 Smoking status: Current every day smoker Tobacco type: cigarettes Second hand tobacco smoke exposure: Yes Alcohol intake: former Alcohol use details: Social Substance use: never Substance use type: does not use Lack of Transportation: No Lack of Food: Never True Current Housing: I Have Housing Concerned About Future Housing: No Difficulty Paying Gas/Electric Bills: No Difficulty Paying for Meds: No Currently Unemployed: No Education: Associate Degree Difficulty w/ Childcare or Family Care: No Gender iden
[2023-05-13 08:31] VITALS: BP 162/89; PULSE 83; RESP 16; TEMP 37.3; O2SAT 100
[2023-05-13 08:37] VITALS: BP 162/89; PULSE 83; RESP 16; TEMP 37.3; O2SAT 100
== END 2023-05-13 09:14 | disposition home or self-care (01) ==
PROVIDERS: Emergency Provider Nurse Practitioner Family; PCP Nurse Practitioner Family
DX: S60.221A Contusion of right hand, initial encounter (principal); S70.01XA Contusion of right hip, initial encounter; W19.XXXA Unspecified fall, initial encounter; M16.0 Bilateral primary osteoarthritis of hip; K21.9 Gastro-esophageal reflux disease without esophagitis; I10 Essential (primary) hypertension; E66.9 Obesity, unspecified; Z68.28 Body mass index [BMI] 28.0-28.9, adult; E28.2 Polycystic ovarian syndrome; F17.210 Nicotine dependence, cigarettes, uncomplicated
CPT/HCPCS: 73130; 73502; 99214; G0463

== ENCOUNTER 2023-06-17 17:59 | Emergency (ER) | payer OTHER, BC, SELFPAY ==
--- NOTE | ~2023-06-17 | XR_ITS ---
EXAMINATION: XR chest 2V DATE: 06/17/2023 18:22 INDICATION: Chest pain. TECHNIQUE: Frontal and lateral views of the chest were obtained. COMPARISON: Chest 2 views 04/10/2021 FINDINGS: There is no pneumonia, pleural effusion, or pneumothorax. The heart size is normal. Surgica l clips in the right upper quadrant are likely from cholecystectomy. IMPRESSION: 1. No acute cardiopulmonary disease. Reviewed, dictated and finalized at location E. IFIED PESTICIDE APPLICATOR
--- NOTE | 2023-06-17 18:00 | ECG_ITS ---
Measurements Intervals [place] Rate: 101 P: 22 NV: 100 QRS: 51 QRSD: 84 T: 46 QT: 351 QTc: 456 Interpretive Statements SINUS TACHYCARDIA WITH SHORT NV INTERVAL ABNORMAL RHYTHM ECG NO PREVIOUS ECG AVAILABLE FOR COMPARISON Electronically Signed On 06-17-2023 19:06:40 [employer]RO[employer]ER by Rose Mistry M.D.
[2023-06-17 18:10] VITALS: BP 143/93; PULSE 100; RESP 20; TEMP 36.6; O2SAT 100
[2023-06-17 18:17] LABS: Basophils Absolute Auto 0.1 K/mm3 (0.0-0.1); Basophils Percent Auto 0.6 % (0.2-1.2); Eosinophils Absolute Auto 0.3 K/mm3 (0-0.3); Eosinophils Percent Auto 3.3 % (0-4.4); Hematocrit 41.3 % (37.0-47.0); Hemoglobin 13.8 g/dL (12.0-15.0); Immature Granulocyte Absolute 0.02 K/mm3 (0.00-0.031); Immature Granulocyte Percent A 0.2 % (0-0.5); Lymphocytes Absolute Auto 3.22 K/mm3 (0.9-3.2); Lymphocytes Percent Auto 35.7 % (18.3-44.2); Mean Corpuscular HGB Conc 33.4 g/dl (32-36); Mean Corpuscular Hemoglobin 30.7 pg (26-34); Mean Platelet Volume 9.3 fl (7.4-10.4); Monocytes Absolute Auto 0.5 K/mm3 (0.1-0.6); Monocytes Percent Auto 5.3 % (2.6-8.5); Neutrophils Percent Auto 54.9 % (45.5-73.1); Platelet Count Result 305 k/mm3 (150-375); Red Blood Count 4.49 M/mm3 (4.2-5.4); Red Cell Distribution Width 12.7 % (11.5-14.5)
[2023-06-17 18:26] LABS: INR 0.8; Prothrombin Time 11.2 Seconds (11.1-14.7)
[2023-06-17 18:38] LABS: Troponin I < 0.012 ng/mL (0.000-0.034)
[2023-06-17 18:41] LABS: Alanine Aminotransferase 24 U/L (6-35); Albumin Level 4.6 g/dL (3.5-5.1); Alkaline Phosphatase 57 U/L (38-126); Anion Gap 8 mmol/L (8-16); Aspartate Amino Transferase 32 U/L (14-36); Bilirubin,Total 0.5 mg/dL (0.2-1.3); Blood Urea Nitrogen 9 mg/dL (7-17); Calcium 9.5 mg/dL (8.4-10.2); Carbon Dioxide 27 mmol/L (22-30); Chloride 104 mmol/L (98-107); Estimated CRCL calculation 102 ml/min; Estimated Glomerular Filt Rate > 60; Glucose 112 mg/dL (65-110); Lipase 145 U/L (23-300); Potassium 3.8 mmol/L (3.4-5.0); Sodium 139 mmol/L (137-145)
--- NOTE | 2023-06-17 21:00 | ECG_ITS ---
Measurements Intervals [place] Rate: 84 P: 21 IN: 146 QRS: 38 QRSD: 85 T: 37 QT: 372 QTc: 440 Interpretive Statements SINUS RHYTHM COMPARED TO ECG 06/17/2023 18:09:33 SINUS RHYTHM NOW PRESENT Electronically Signed On 06-18-2023 11:12:09 BRANCH ADMINISTRATOR by Idalmis Harper M.D.
[2023-06-17 21:10] VITALS: PULSE 93
--- NOTE | 2023-06-17 21:11 | ED.CHESTPAIN ---
HPI - Chest Pain General Chief Complaint: Chest Pain Stated Complaint: chest pain x 1-2 hours Time Seen by Provider: 06/17/23 20:01 History of Present Illness HPI narrative: Patient is a 52 year old female with a history of hypertension, hyperlipidemia, IBS presenting with chest pain. Patient states that she was at work when she developed substernal chest pain. Describes as dull and achy. Associated with mild shortness of breath and lightheadedness. States that she has been having cough lately especially at night. States that she has had a lot of nasal congestion has been talking about to postnasal drip. States that she has chronic abdominal pain that is unchanged as well as intermittent nausea vomiting or constipation. No leg swelling. No fevers or chills. Related Data Home Medications Medication Instructions Recorded Confirmed multivitamin (Daily Vitamin 1 tablet PO DAILY 06/17/19 05/13/23 Formula tablet) simethicone 125 mg capsule (Gas 125 mg PO DAILY PRN Pain 11/01/21 05/13/23 Relief (simethicone)) loratadine 10 mg tablet (Claritin) 10 mg PO DAILY 12/13/21 05/13/23 omega 1-pof-iwl-fish oil 100 1 cap PO DAILY 01/31/22 05/13/23 mg-160 mg-1,000 mg capsule (Fish Oil) valacyclovir 1 gram tablet 2,000 mg PO BID PRN fever blister 03/09/23 05/13/23 (Valtrex) Allergies Allergy/AdvReac Type Severity Reaction Status Date / Time No Known Allergies Allergy Verified 06/17/23 21:09 Review of Systems Review of Systems: All systems reviewed & are unremarkable except as noted in HPI and below PMFSH Past Medical History Medical History Acute diverticulitis of intestine Anxiety Arthritis Bilateral hand pain Bronchitis Chronic back pain Diverticulitis of sigmoid colon GERD (gastroesophageal reflux disease) History of chemotherapy Hypertension IBS (irritable bowel syndrome) Inflammatory arthritis (~2018) Irritable bowel syndrome with diarrhea Kidney stones Obesity Polycystic ovarian disease Seasonal allergies Strain of right gastrocnemius muscle (~02/2019) Surgical History Surgical History H/O dilation and curettage H/O ovarian cystectomy History of cholecystectomy History of hysterectomy Family History Family History Mother Patient's mother is in good health Family history of cardiovascular disease Family history of arthritis Family history of atrial fibrillation Breast cancer Hypertension Father Patient's father is in good health Family history of lymphoma Hypertension Family history of cardiovascular disease Acute myocardial infarction Family history of arthritis Grandparent Carcinoma of colon Hypertension Depression Anxiety Heart problem Cerebrovascular accident Disorder of thyroid Social History Social History Smoking packs per day: 0.5 Smoking cigarettes per day: 10.0 Years smoked: 30 Smoking pack-years: 15.00 Smoking status: Current every day smoker Tobacco type: cigarettes Second hand tobacco smoke exposure: Yes Alcohol intake: former Alcohol use details: Social Substance use: never Substance use type: does not use Lack of Transportation: No Lack of Food: Never True Current Housing: I Have Housing Concerned About Future Housing: No Difficulty Paying Gas/Electric Bills: No Difficulty Paying for Meds: No Currently Unemployed: No Education: Associate Degree Difficulty w/ Childcare or Family Care: No Gender identity (if verbalized by the patient): Female Exam Narrative: GENERAL: Well-appearing, in no acute distress, pleasant and cooperative HEAD: Normocephalic, atraumatic. EYES: PERRLA and EOMI. ENT: Mucous membranes moist. NECK: Supple. CHEST: Clear to auscultation. No respira
[2023-06-17 21:14] VITALS: BP 134/84; PULSE 88; RESP 15; O2SAT 99
[2023-06-17 21:33] LABS: Troponin I < 0.012 ng/mL (0.000-0.034)
[2023-06-17] MEDS: MORPHINE SULFATE (*CRX) 4 MG/ML INJ IV PUSH (21:34)
[2023-06-17] MEDS: ASPIRIN 81 MG CHEWABLE TABLET 324 MG PO (21:35)
[2023-06-17] MEDS: SODIUM CHLORIDE 0.9% IV 1,000 ML 999 ML IV CONT (21:35)
[2023-06-17 22:00] LABS: Influenza A QL RT-PCR Negative (Negative); Influenza B QL RT-PCR Negative (Negative); RSV RNA, RT-PCR Negative (Negative); SARS-CoV-2 RNA PCR Negative (Negative)
== END 2023-06-17 23:30 | disposition home or self-care (01) ==
PROVIDERS: Emergency Provider Emergency Medicine; PCP Nurse Practitioner Family
DX: R07.89 Other chest pain (principal); R05.9 Cough, unspecified; I10 Essential (primary) hypertension; E78.5 Hyperlipidemia, unspecified; F17.210 Nicotine dependence, cigarettes, uncomplicated; Z20.822 Contact with and (suspected) exposure to COVID-19
CPT/HCPCS: 36415; 71046; 80053; 83690; 84484; 85025; 85610; 85730; 87637; 93005; 96361; 96374; 99284; A9270; J2270; J7030

== ENCOUNTER 2023-09-10 10:51 | Outpatient (CLI) | payer BC, SELFPAY ==
--- NOTE | ~2023-09-10 | MR_ITS ---
MRI of the lumbar spine Clinical History: Fracture Technique: Axial T2-weighted images, and sagittal T1-weighted, T2-weighted, and T2 fat-sat images wer e acquired. COMPARISON: 07/20/2013 Findings: There is no fracture or subluxation of the lumbar spine. Vertebral bodies maintain normal h eight and line. No bone marrow signal abnormality seen. Intervertebral disc several several preserved throughout the lumbar spine. No significant disc bulge or herniation seen at any lumbar level. There is moderate facet arthropathy throughout the lumbar spi ne, with severe facet arthropathy at L5-S1. No spinal canal stenosis or neural foraminal narrowing ev ident in the lumbar spine. Paravertebral soft tissues are unremarkable. Impression: No fracture or dislocation. Facet arthropathy. No spinal canal stenosis or neural foraminal narrowing. Reviewed, dictated and finalized at [facility]. Impression: No fracture or dislocation. Facet arthropathy. No spinal canal stenosis or neural foraminal narrowing.
== END 2023-09-10 10:52 | disposition home or self-care (01) ==
LOC: ANHIMG 10:52
PROVIDERS: PCP Nurse Practitioner Family; Visit Provider Orthopaedic Surgery
DX: S32.009A Unspecified fracture of unspecified lumbar vertebra, initial encounter for closed fracture (principal); M54.16 Radiculopathy, lumbar region; M46.1 Sacroiliitis, not elsewhere classified; X58.XXXA Exposure to other specified factors, initial encounter
CPT/HCPCS: 72148

== ENCOUNTER 2023-10-16 19:14 | Emergency (ER) | payer BC, SELFPAY ==
--- NOTE | ~2023-10-16 | CT_ITS ---
EXAMINATION: CT abdomen pelvis w con DATE: 10/16/2023 20:34 INDICATION: Left lower quadrant abdominal pain. TECHNIQUE: Computed tomography (CT) of the abdomen and pelvis was performed with 100 mL Omnipaque 350 intravenous contrast. Automated exposure control and iterative reconstruction technique were employe d. The dose-length product was 428.57 mGy-cm. COMPARISON: CT abdomen and pelvis 11/21/2022 FINDINGS: The visualized portions of lung bases demonstrate mild atelectasis. No pleural effusion. Th e heart size is normal. No pericardial effusion. There is a 6 mm cyst in the liver. There are changes of cholecystectomy. The spleen, pancreas, and adrenal glands are normal. There is mild cortical thin demi of the kidneys. There are no dilated loops of bowel. The appendix is normal. There is diverticul osis of the colon without evidence of diverticulitis. There are no pathologically enlarged lymph node s. There is no free intraperitoneal fluid. There is mild thoracic and lumbar spondylosis. IMPRESSION: 1. No etiology for the patient's symptoms. Reviewed, dictated and finalized at location E.
[2023-10-16 19:21] VITALS: BP 181/95; PULSE 87; RESP 15; TEMP 36.9; O2SAT 100
--- NOTE | 2023-10-16 19:40 | ED.ABDPAIN ---
HPI - Abdominal Pain General Chief Complaint: Abdominal Pain Stated Complaint: abd pain Time Seen by Provider: 10/16/23 19:21 History of Present Illness HPI narrative: Patient is a 53-year-old female who presents ER with left-sided abdominal pain. Ongoing over last 2 weeks. Sharp and aching. Has history of diverticulitis and this feels similar. She has had intermittent constipation and diarrhea. No fevers or chills or sweats. No alleviating factors for her discomfort. No radiation. Related Data Home Medications Medication Instructions Recorded Confirmed multivitamin (Daily Vitamin 1 tablet PO DAILY 06/17/19 09/03/23 Formula tablet) simethicone 125 mg capsule (Gas 125 mg PO DAILY PRN Pain 11/01/21 09/03/23 Relief (simethicone)) loratadine 10 mg tablet (Claritin) 10 mg PO DAILY 12/13/21 09/03/23 omega 3-vlx-tcr-fish oil 100 1 cap PO DAILY 01/31/22 09/03/23 mg-160 mg-1,000 mg capsule (Fish Oil) valacyclovir 1 gram tablet 2,000 mg PO BID PRN fever blister 03/09/23 09/03/23 (Valtrex) meloxicam 7.5 mg tablet 7.5 mg PO BID 09/03/23 09/03/23 vitamin B complex 1 tablet PO DAILY 09/03/23 09/03/23 Allergies Allergy/AdvReac Type Severity Reaction Status Date / Time No Known Allergies Allergy Verified 09/03/23 13:31 Review of Systems Review of Systems: All systems reviewed & are unremarkable except as noted in HPI and below Constitutional: Constitutional: Reports no additional constitutional complaints Cardiovascular: Cardiovascular: Reports no additional cardiovascular complaints Respiratory: Respiratory: Reports no additional respiratory complaints Gastrointestinal: Gastrointestinal: Reports abdominal pain, Reports bloating, Reports constipation, Reports diarrhea, Denies nausea and Denies vomiting [facility] Past Medical History Medical History Acute diverticulitis of intestine Anxiety Arthritis Bilateral hand pain Bronchitis Chronic back pain Diverticulitis of sigmoid colon GERD (gastroesophageal reflux disease) History of chemotherapy Hypertension IBS (irritable bowel syndrome) Inflammatory arthritis (~2018) Irritable bowel syndrome with diarrhea Kidney stones Obesity Polycystic ovarian disease Seasonal allergies Strain of right gastrocnemius muscle (~02/2019) Surgical History Surgical History H/O dilation and curettage H/O ovarian cystectomy History of cholecystectomy History of hysterectomy Family History Family History Mother Patient's mother is in good health Family history of cardiovascular disease Family history of arthritis Family history of atrial fibrillation Breast cancer Hypertension Father Patient's father is in good health Family history of lymphoma Hypertension Family history of cardiovascular disease Acute myocardial infarction Family history of arthritis Grandparent Carcinoma of colon Hypertension Depression Anxiety Heart problem Cerebrovascular accident Disorder of thyroid Social History Social History Smoking packs per day: 0.5 Smoking cigarettes per day: 10.0 Years smoked: 30 Smoking pack-years: 15.00 Smoking status: Current every day smoker Tobacco type: cigarettes Second hand tobacco smoke exposure: Yes Alcohol intake: former Alcohol use details: Social Substance use: never Substance use type: does not use Lack of Transportation: No Lack of Food: Never True Current Housing: I Have Housing Concerned About Future Housing: No Difficulty Paying Gas/Electric Bills: No Difficulty Paying for Meds: No Currently Unemployed: No Education: Associate Degree Difficulty w/ Childcare or Family Care: No Gender identity (if verbalized by the patient): Female Exam Narrative:
[2023-10-16 19:43] LABS: Appearance Urine Clear (Clear); Bacteria Urine 2+ /hpf; Bilirubin Urine Negative (Negative); Blood Urine Negative (Negative); Color Urine Yellow (Yellow); Glucose Urine UA Negative (Negative); Ketones Urine Negative (Negative); Leukocyte Esterase Ur Negative LEU/UL (Negative); Nitrate Urine Negative (Negative); Non Pathogenic Casts 0-2; Protein Urine Trace mg/dL (Negative); Specific Grav Ur 1.022 (1.001-1.035); Squamous Epithelial Cell Urine Few /hpf (Few); Urobilinogen Urine 0.2 mg/dL (<2.0); WBC Urine 0-5 /hpf (0-3)
[2023-10-16 19:49] LABS: Basophils Absolute Auto 0.1 K/mm3 (0.0-0.1); Basophils Percent Auto 0.5 % (0.2-1.2); Eosinophils Absolute Auto 0.3 K/mm3 (0-0.3); Eosinophils Percent Auto 2.7 % (0-4.4); Hematocrit 38.9 % (37.0-47.0); Hemoglobin 13.1 g/dL (12.0-15.0); Immature Granulocyte Absolute 0.02 K/mm3 (0.00-0.031); Immature Granulocyte Percent A 0.2 % (0-0.5); Lymphocytes Absolute Auto 3.47 K/mm3 (0.9-3.2); Lymphocytes Percent Auto 35.5 % (18.3-44.2); Mean Corpuscular HGB Conc 33.7 g/dl (32-36); Mean Corpuscular Hemoglobin 31.1 pg (26-34); Mean Corpuscular Volume 92.4 fl (80-100); Mean Platelet Volume 10.2 fl (7.4-10.4); Monocytes Absolute Auto 0.5 K/mm3 (0.1-0.6); Monocytes Percent Auto 5.4 % (2.6-8.5); Neutrophils Absolute Auto 5.4 K/mm3 (1.3-6.7); Neutrophils Percent Auto 55.7 % (45.5-73.1); Platelet Count Result 277 k/mm3 (150-375); Red Blood Count 4.21 M/mm3 (4.2-5.4); Red Cell Distribution Width 12.7 % (11.5-14.5); White Blood Count 9.8 K/mm3 (4.5-10.0)
[2023-10-16 19:49] LABS: Add Urine Microscopic? YES
[2023-10-16] MEDS: ONDANSETRON INJ 4 MG/2 ML VIAL IV PUSH (20:07)
[2023-10-16] MEDS: SODIUM CHLORIDE 0.9% IV 1,000 ML 999 ML IV CONT (20:07)
[2023-10-16] MEDS: MORPHINE SULFATE (*CRX) 4 MG/ML INJ IV PUSH (20:08)
[2023-10-16 20:18] LABS: Alanine Aminotransferase 29 U/L (6-35); Albumin Level 4.6 g/dL (3.5-5.1); Alkaline Phosphatase 46 U/L (38-126); Anion Gap 7 mmol/L (4-12); Aspartate Amino Transferase 32 U/L (14-36); Bilirubin,Total 0.4 mg/dL (0.2-1.3); Blood Urea Nitrogen 12 mg/dL (7-17); Calcium 9.5 mg/dL (8.4-10.2); Carbon Dioxide 26 mmol/L (22-30); Chloride 105 mmol/L (98-107); Estimated CRCL calculation 102 ml/min; Estimated Glomerular Filt Rate > 60; Glucose 107 mg/dL (65-110); Lipase 110 U/L (23-300); Potassium 3.1 mmol/L (3.4-5.0); Sodium 138 mmol/L (137-145)
[2023-10-16 21:15] VITALS: BP 157/79; PULSE 67; RESP 18; O2SAT 100
== END 2023-10-16 21:16 | disposition home or self-care (01) ==
PROVIDERS: Emergency Provider Emergency Medicine; PCP Nurse Practitioner Family
DX: N39.0 Urinary tract infection, site not specified (principal); R10.32 Left lower quadrant pain; F17.210 Nicotine dependence, cigarettes, uncomplicated
CPT/HCPCS: 36415; 74177; 80053; 81001; 81025; 83690; 85025; 96361; 96374; 96375; 99284; J2270; J2405; J7030; Q9967

== ENCOUNTER 2023-12-25 14:40 | Emergency (ER) | payer BC, SELFPAY ==
[2023-12-25 14:41] VITALS: BP 180/96; PULSE 114; RESP 20; TEMP 36.3; O2SAT 97
[2023-12-25 14:44] VITALS: BP 153/94; PULSE 105; RESP 20; O2SAT 98
[2023-12-25 19:05] VITALS: BP 125/111; PULSE 100; RESP 18; TEMP 36.3; O2SAT 96
--- NOTE | 2023-12-25 19:20 | PC.NURSE ---
Pt came up to desk stating she is going to another hospital. Pt leaves in NAD.
== END 2023-12-25 21:41 | disposition left against medical advice (07) ==
PROVIDERS: PCP Nurse Practitioner Family
DX: R10.30 Lower abdominal pain, unspecified (principal)
CPT/HCPCS: 99199

== ENCOUNTER 2024-01-04 11:41 | Outpatient (CLI) | payer BC, SELFPAY ==
[2024-01-04 12:06] LABS: Basophils Absolute Auto 0.1 K/mm3 (0.0-0.1); Basophils Percent Auto 0.9 % (0.2-1.2); Eosinophils Absolute Auto 0.3 K/mm3 (0-0.3); Eosinophils Percent Auto 3.7 % (0-4.4); Hematocrit 40.7 % (37.0-47.0); Hemoglobin 13.6 g/dL (12.0-15.0); Immature Granulocyte Absolute 0.03 K/mm3 (0.00-0.031); Immature Granulocyte Percent A 0.3 % (0-0.5); Lymphocytes Absolute Auto 2.43 K/mm3 (0.9-3.2); Lymphocytes Percent Auto 27.9 % (18.3-44.2); Mean Corpuscular HGB Conc 33.4 g/dl (32-36); Mean Corpuscular Hemoglobin 30.7 pg (26-34); Mean Corpuscular Volume 91.9 fl (80-100); Mean Platelet Volume 9.4 fl (7.4-10.4); Monocytes Absolute Auto 0.3 K/mm3 (0.1-0.6); Monocytes Percent Auto 3.9 % (2.6-8.5); Neutrophils Absolute Auto 5.5 K/mm3 (1.3-6.7); Neutrophils Percent Auto 63.3 % (45.5-73.1); Platelet Count Result 301 k/mm3 (150-375); Red Blood Count 4.43 M/mm3 (4.2-5.4); Red Cell Distribution Width 12.5 % (11.5-14.5); White Blood Count 8.7 K/mm3 (4.5-10.0)
[2024-01-04 12:17] LABS: Iron 92 ug/dL (37-170)
[2024-01-04 12:19] LABS: Alanine Aminotransferase 23 U/L (6-35); Albumin Level 4.6 g/dL (3.5-5.1); Alkaline Phosphatase 53 U/L (38-126); Anion Gap 10 mmol/L (4-12); Aspartate Amino Transferase 33 U/L (14-36); Bilirubin,Total 0.4 mg/dL (0.2-1.3); Blood Urea Nitrogen 10 mg/dL (7-17); Calcium 9.3 mg/dL (8.4-10.2); Carbon Dioxide 28 mmol/L (22-30); Chloride 101 mmol/L (98-107); Cholesterol 160 mg/dL (0-200); Estimated Glomerular Filt Rate > 60; Glucose 102 mg/dL (65-110); HDL Direct 66 mg/dL; Potassium 3.2 mmol/L (3.4-5.0); Sodium 139 mmol/L (137-145); Triglycerides 214 mg/dL (<150)
[2024-01-04 12:26] LABS: Percent Iron Saturation 31 % (20-50)
[2024-01-04 12:31] LABS: LDL Cholesterol Direct 66 mg/dL
[2024-01-04 12:36] LABS: Hemoglobin A1C 5.9 % (<5.7)
== END 2024-01-04 11:42 | disposition home or self-care (01) ==
LOC: ANHLAB 11:43
PROVIDERS: PCP Nurse Practitioner Family; Visit Provider Nurse Practitioner Family
DX: I10 Essential (primary) hypertension (principal); K58.0 Irritable bowel syndrome with diarrhea; K57.32 Diverticulitis of large intestine without perforation or abscess without bleeding; E78.5 Hyperlipidemia, unspecified
CPT/HCPCS: 36415; 80053; 80061; 83036; 83540; 83550; 85025

== ENCOUNTER 2024-03-08 19:20 | Emergency (ER) | payer BC, SELFPAY ==
[2024-03-08 19:31] VITALS: BP 149/87; PULSE 93; RESP 14; TEMP 36.9; O2SAT 99
--- NOTE | 2024-03-08 19:32 | ED.SKABFB ---
HPI - Skin/Abscess/Foreign Bdy General Chief complaint: Skin/Abscess/Foreign Body Stated complaint: Insect Bite Time Seen by Provider: 03/08/24 19:52 Source: patient, RN notes reviewed and old records reviewed Mode of arrival: ambulatory Limitations: no limitations History of Present Illness HPI narrative: Patient presents with complaints of burning itchy rash to the right arm. She reports that she noticed some redness yesterday, awakened with fluid-filled bumps today. She denies any injury or trauma. She does have history of chickenpox. Shingles in the past. No other concerns or complaints at this time. She has been putting topicals on the affected area and it is worsening Related Data Home Medications Medication Instructions Recorded Confirmed multivitamin (Daily Vitamin 1 tablet PO DAILY 06/17/19 03/08/24 Formula tablet) simethicone 125 mg capsule (Gas 125 mg PO DAILY PRN Pain 11/01/21 03/08/24 Relief (simethicone)) loratadine 10 mg tablet (Claritin) 10 mg PO DAILY 12/13/21 03/08/24 omega 5-buf-kvp-fish oil 100 1 cap PO DAILY 01/31/22 03/08/24 mg-160 mg-1,000 mg capsule (Fish Oil) valacyclovir 1 gram tablet 2,000 mg PO BID PRN fever blister 03/09/23 03/08/24 (Valtrex) vitamin B complex 1 tablet PO DAILY 09/03/23 03/08/24 Allergies Allergy/AdvReac Type Severity Reaction Status Date / Time No Known Allergies Allergy Verified 03/08/24 19:25 Review of Systems Review of Systems: All systems reviewed & are unremarkable except as noted in HPI and below Constitutional: Constitutional: Reports no additional constitutional complaints ENT: Reports system reviewed and no additional complaints, except as documented Cardiovascular: Cardiovascular: Reports no additional cardiovascular complaints Respiratory: Respiratory: Reports no additional respiratory complaints Gastrointestinal: Gastrointestinal: Reports no additional gastrointestinal complaints Integumentary/Breasts: Skin/Breast: Reports system reviewed and no additional complaints, except as docu, Reports as per HPI, Reports pruritus and Reports rash PMFSH Past Medical History Medical History Acute diverticulitis of intestine Anxiety Arthritis Bilateral hand pain Bronchitis Chronic back pain Diverticulitis of sigmoid colon GERD (gastroesophageal reflux disease) History of chemotherapy Hypertension IBS (irritable bowel syndrome) Inflammatory arthritis (~2018) Irritable bowel syndrome with diarrhea Kidney stones Obesity Polycystic ovarian disease Seasonal allergies Strain of right gastrocnemius muscle (~02/2019) Surgical History Surgical History H/O dilation and curettage H/O ovarian cystectomy History of cholecystectomy History of hysterectomy Family History Family History Mother Patient's mother is in good health Family history of cardiovascular disease Family history of arthritis Family history of atrial fibrillation Breast cancer Hypertension Father Patient's father is in good health Family history of lymphoma Hypertension Family history of cardiovascular disease Acute myocardial infarction Family history of arthritis Grandparent Carcinoma of colon Hypertension Depression Anxiety Heart problem Cerebrovascular accident Disorder of thyroid Social History Social History Smoking packs per day: 0.5 Smoking cigarettes per day: 10.0 Years smoked: 30 Smoking pack-years: 15.00 Smoking status: Current every day smoker Tobacco type: cigarettes Second hand tobacco smoke exposure: Yes Alcohol intake: former Alcohol use details: Social Substance use: never Substance use type: does not use Do You Feel Safe in your Home?: Yes Lack of Transportation: No Lack of Food: Never True Current Housing: I Have Housing Concerned About Future Housing: No Difficulty Paying Gas/Electric Bills: No Difficulty Paying for Meds: No Currently Unemployed: No Education: Associate Degree Difficulty w/ Childcare or Family Care: No Living arrangements: with family Occupation/Education: unemployed Gender identity (if verbalized by the patient): Female Sexual Orientation (if Verbalized by the Patient): Straight or Heterosexual Spiritual care concerns: No Agree to blood products: Yes Comments At the time of my signature, I reviewed and agree with the nursing past medical, surgical, social, and family history. There is no relevant family history pertinent to the patient complaint. Exam Const: General: cooperative, no acute distress, alert and awake Orientation/consciousness: oriented to person, oriented to place and oriented to time HENMT: Head: normal to inspection Resp: Effort & Inspection: normal respiratory effort and able to speak in complete sentences Auscultation: clear to auscultation bilaterally, no crackles, no rales, no rhonchi and no wheezes Cardio: Palpation: normal PMI Rate: regular rate Rhythm: regular rhythm Heart sounds: S1 normal heart sound present and S2 normal heart sound present Skin: Rashes: rashes noted (Fascicular rash in a linear pattern to right arm, follows dermatome) Neuro: General: oriented to person, oriented to place and oriented to time Cranial nerves: Yes CN's II-XII intact bilaterally Psych: Appearance: grossly normal Thought process: Normal thought process present Insight: Good insight present (Psych) Judgement: Good judgement present (Psych) Course Course Level of Care: Express Care Visit Vital Signs Vital signs: Vital Signs Temperature 98.5 F 03/08/24 19:31 Pulse Rate 93 03/08/24 19:31 Respiratory Rate 14 03/08/24 19:31 Blood Pressure 149/87 H 03/08/24 19:31 Pulse Oximetry 99 03/08/24 19:31 Oxygen Delivery Room Air 03/08/24 19:31 Temperature 98.5 F 03/08/24 19:31 Pulse Rate 93 03/08/24 19:31 Respiratory Rate 14 03/08/24 19:31 Blood Pressure 149/87 H 03/08/24 19:31 Pulse Oximetry 99 03/08/24 19:31 Oxygen Delivery Room Air 03/08/24 19:31 Reviewed MDM - Skin/Abscess/Foreign Bdy MDM Narrative Medical decision making narrative: History and exam consistent with shingles. Start Valtrex. One refill given in case of future outbreaks. Patient nontoxic appearing. Stable for discharge home. Discharge instructions reviewed with patient, as well as provided in writing per nursing staff. The instructions also include specific and strict return/GO TO THE ER as well as f/u information. All questions have been answered, and the patient deny any further questions with discharge and discharge plan. Some parts of this dictation were generated by voice recognition software and may contain typographical and/or grammatical inaccuracies. Differential Diagnosis Differential diagnosis: Likely viral exanthem, herpes zoster and insect bites Medical Records Attestation: I reviewed the patient's medical records. Discharge Plan Discharge Clinical Impression: Shingles Qualifiers: Herpes zoster complications: without complications Qualified Code(s): B02.9 - Zoster without complications Patient Disposition: Home, Self-Care Condition: Stable Instructions: Antibiotic Form, Shingles (ED) Additional Instructions: Take medication as prescribed, follow with primary care provider. Emergency department for new or worsened Patient Language: Ukrainian Prescriptions: New valacyclovir [Valtrex] 1 gram tablet 1,000 mg PO TID Qty: 21 1RF No Action simethicone [Gas Relief (simethicone)] 125 mg capsule 125 mg PO DAILY PRN (Reason: Pain) loratadine [Claritin] 10 mg tablet 10 mg PO DAILY Fish Oil 100-160-1,000 mg capsule 1 cap PO DAILY duloxetine 60 mg capsule,delayed release(DR/EC) 60 mg PO DAILY Qty: 90 1RF vitamin B complex Tablet 1 tablet PO DAILY lisinopril-hydrochlorothiazide 20-25 mg tablet 1 tablet PO DAILY Qty: 90 1RF fluticasone propionate [Flonase Allergy Relief] 50 mcg/actuation spray,suspension 2 spray intranasal DAILY Qty: 16 2RF Rx Instructions: administer into each nostril gabapentin 300 mg capsule 300 mg PO QHS Qty: 90 1RF albuterol sulfate 90 mcg/actuation HFA aerosol inhaler 2 inh inhalation Q4H PRN (Reason: shortness of breath or wheezing) Qty: 8.5 1RF esomeprazole magnesium 40 mg capsule,delayed release(DR/EC) 40 mg PO DAILY Qty: 90 1RF valacyclovir [Valtrex] 1 gram tablet 2,000 mg PO BID PRN (Reason: fever blister) multivitamin [Daily Vitamin Formula] Tablet 1 tablet PO DAILY metoprolol succinate 25 mg tablet extended release 24 hr See Rx Instructions .ROUTE .COMPLEX Qty: 90 2RF Dose Instruction: Take 1 tablet by mouth once daily Rx Instructions: Take 1 tablet by mouth once daily rosuvastatin 5 mg tablet See Rx Instructions .ROUTE .COMPLEX Qty: 90 0RF Dose Instruction: Take 1 tablet by mouth once daily Rx Instructions: Take 1 tablet by mouth once daily meloxicam 7.5 mg tablet 7.5 mg PO DAILY Qty: 90 1RF potassium chloride 20 mEq tablet extended release 20 meq PO DAILY Qty: 30 1RF Follow-up/Referrals: Alley Vegas APRN [Primary Care Provider] -
== END 2024-03-08 20:06 | disposition home or self-care (01) ==
PROVIDERS: Emergency Provider Nurse Practitioner Family; PCP Nurse Practitioner Family
DX: B02.9 Zoster without complications (principal); F17.210 Nicotine dependence, cigarettes, uncomplicated; I10 Essential (primary) hypertension; M19.90 Unspecified osteoarthritis, unspecified site; K21.9 Gastro-esophageal reflux disease without esophagitis; E28.2 Polycystic ovarian syndrome; E66.9 Obesity, unspecified; Z68.27 Body mass index [BMI] 27.0-27.9, adult
CPT/HCPCS: 99213; G0463

== ENCOUNTER 2024-04-04 11:53 | Outpatient (CLI) | payer BC, SELFPAY ==
--- NOTE | ~2024-04-04 | XR_ITS ---
EXAMINATION: XR chest 2V Exam Date/Time: 04/04/2024 12:30 INFORMATION TECH HISTORY: Z01.818 - Encounter for other preprocedural examination Comparison: 06/17/2023. RESULT: Lines, tubes, and devices: None. Lungs and pleura: Clear. Cardiomediastinal silhouette: Stable. Other: No acute osseous or upper abdominal finding. IMPRESSION: No acute cardiopulmonary process. Reviewed, dictated and finalized at location K. RMATION TECH
--- NOTE | 2024-04-04 12:09 | ECG_ITS ---
Test Date: 2024-04-04 12:24:10 Measurements Intervals [place] Rate: 76 P: 54 MA: 153 QRS: 43 QRSD: 89 T: 49 QT: 393 QTc: 443 Interpretive Statements SINUS RHYTHM NORMAL ECG No previous ECG available for comparison Electronically Signed On 04-04-2024 12:56:29 SENIOR VICE PRESIDENT by Henry Denis D.O.
[2024-04-04 12:34] LABS: Add Urine Microscopic? NO; Appearance Urine Clear (Clear); Bilirubin Urine Negative (Negative); Blood Urine Negative (Negative); Color Urine Yellow (Yellow); Glucose Urine UA Negative (Negative); Ketones Urine Negative (Negative); Leukocyte Esterase Ur Negative LEU/UL (Negative); Nitrate Urine Negative (Negative); Protein Urine Negative (Negative); Specific Grav Ur 1.005 (1.001-1.035); Urobilinogen Urine 0.2 mg/dL (<2.0); pH Urine 6.5 (5.0-9.0)
[2024-04-04 12:48] LABS: Basophils Absolute Auto 0.1 K/mm3 (0.0-0.1); Basophils Percent Auto 0.8 % (0.2-1.2); Eosinophils Absolute Auto 0.5 K/mm3 (0-0.3); Eosinophils Percent Auto 4.7 % (0-4.4); Hematocrit 42.7 % (37.0-47.0); Hemoglobin 14.1 g/dL (12.0-15.0); Immature Granulocyte Absolute 0.03 K/mm3 (0.00-0.031); Immature Granulocyte Percent A 0.3 % (0-0.5); Lymphocytes Absolute Auto 3.53 K/mm3 (0.9-3.2); Lymphocytes Percent Auto 32.8 % (18.3-44.2); Mean Corpuscular Hemoglobin 31.5 pg (26-34); Mean Corpuscular Volume 95.5 fl (80-100); Mean Platelet Volume 9.3 fl (7.4-10.4); Monocytes Absolute Auto 0.4 K/mm3 (0.1-0.6); Neutrophils Absolute Auto 6.2 K/mm3 (1.3-6.7); Neutrophils Percent Auto 57.4 % (45.5-73.1); Platelet Count Result 347 k/mm3 (150-375); Red Blood Count 4.47 M/mm3 (4.2-5.4); Red Cell Distribution Width 13.1 % (11.5-14.5); White Blood Count 10.8 K/mm3 (4.5-10.0)
[2024-04-04 13:20] LABS: Alanine Aminotransferase 32 U/L (6-35); Albumin Level 5.1 g/dL (3.5-5.1); Alkaline Phosphatase 55 U/L (38-126); Anion Gap 9 mmol/L (4-12); Aspartate Amino Transferase 40 U/L (14-36); Bilirubin,Total 0.7 mg/dL (0.2-1.3); Blood Urea Nitrogen 18 mg/dL (7-17); Calcium 9.8 mg/dL (8.4-10.2); Carbon Dioxide 30 mmol/L (22-30); Chloride 98 mmol/L (98-107); Estimated Glomerular Filt Rate > 60; Glucose 89 mg/dL (65-110); Potassium 3.6 mmol/L (3.4-5.0); Sodium 137 mmol/L (137-145)
== END 2024-04-04 11:54 | disposition home or self-care (01) ==
LOC: ANHIMG 11:54
PROVIDERS: PCP Nurse Practitioner Family; Visit Provider Nurse Practitioner Family
DX: Z01.818 Encounter for other preprocedural examination (principal)
CPT/HCPCS: 36415; 71046; 80053; 81003; 85025; 93005

== ENCOUNTER 2024-06-16 16:28 | Emergency (ER) | payer BC, SELFPAY ==
--- NOTE | ~2024-06-16 | CT_ITS ---
CLINICAL INDICATION: Left lower quadrant pain COMPARISON: 10/16/2023. TECHNIQUE: Multiple contiguous axial images of the abdomen and pelvis were performed following the ad ministration of with 100 mL Omnipaque-350 intravenous contrast The dose-length product (DLP) was 436.97 mGy-cm. Automated exposure control and iterative reconstruction technique were employed. FINDINGS/OBSERVATIONS: Visualized lower thorax: The bilateral lung bases are clear. The heart is of normal size, without pericardial effusion. Small hiatal hernia is present. Liver: The liver is homogeneous in enhancement and is enlarged measuring 20 cm in longitudinal dimension. Gallbladder and biliary system: The gallbladder is surgically absent Pancreas: The pancreas enhances homogeneously without ductal dilatation. Spleen: The spleen enhances homogeneously and is not enlarged measuring 6 cm in longitudinal dimension. Kidneys: 3 mm nonobstructing calculus within the lower pole of the right kidney. The remainder of the bilateral kidneys otherwise enhance symmetrically without hydronephrosis or grace tional renal calculi. Adrenal glands: Unremarkable. Gastrointestinal tract: Colonic diverticulosis without surrounding inflammatory change. Eccentric mural thickening within the rectum with proximal air opacified and distended sigmoid colon, possibly the source of patient's pain. Direct visualization is recommended. Appendix: The appendix is not definitively visualized. However, no pericecal inflammatory change is identified suggest the presence of acute appendicitis. Vasculature: Unremarkable. Lymph nodes: No pathologically enlarged or morphologically suspicious lymph nodes within the retroperitoneum or at the root of the mesentery. Pelvic structures: The bladder is decompressed and otherwise unremarkable. The uterus is retroverted and retroflexed. Dominant follicle within the right ovary. The left ovary is unremarkable. Body wall and musculoskeletal: Small fat-containing umbilical hernia. No significant degenerative disease within the lower thoracic or lumbosacral spine. IMPRESSION: Eccentric mural thickening within the rectum with possible air opacified and distended distal sigmoid colon, extending to the left of midline. Nonemergent follow-up with direct visualization is recommended. Colonic diverticulosis. Right renal nonobstructing calculus. Hepatomegaly Reviewed, dictated and finalized at location A. UE INSTRUCTOR IMPRESSION: Eccentric mural thickening within the rectum with possible air opacified and di stended distal sigmoid colon, extending to the left of midline. Nonemergent follow-up with direct visualization is recommended. Colonic diverticulosis. Right renal nonobstructing calculus. Hepatomegaly
--- OUTSIDE RECORDS SUMMARY | 2024-06-16 16:31 | XMS_ITS | Referral Summary ---
Author Organization [facility] Address [address] [place] [address] Care Team Providers Care Aggregate Conveyor Operator Name Role Phone No, Physician Primary Care Provider [phone] Allergies No known active allergies Medications dicyclomine (BENTYL) 20 mg tablet Take 1 tablet (20 mg total) by mouth 2 (two) times a day for 20 days 40 tablet 4 Active ondansetron ODT (ZOFRAN-ODT) 4 mg disintegrating tablet Take 1 tablet (4 mg total) by mouth every 8 (eight) hours as needed for nausea or vomiting 20 tablet 4 Active traMADoL (ULTRAM) 50 mg tablet Take 1 tablet (50 mg total) by mouth every 6 (six) hours 6 tablet 4 Active Social History Tobacco Use Types Packs/Day Years Used Date Smoking Tobacco: Every Day Cigarettes Tobacco Cessation:Ready to Q uit: Not Asked; Counseling Given: Not Answered Personal Safety Answer Date Recorded Have you ever been in or are you currently in a harmful physical or emotional relationship or is someone making you feel afraid or unsafe? 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 Gender Identity Not on file Sexual Orientation Not on file Last Filed Vital Signs Vital Sign Reading Time Taken Comments Blood Pressure 150/86 12/27/2023 12:30 AM CDT Pulse 86 12/27/2023 12:30 AM CDT Temperature 36.6 C (97.8 F) 12/27/2023 12:30 AM CDT Respiratory Rate 16 12/27/2023 12:30 AM CDT Oxygen Saturation 98% 12/27/2023 12:30 AM CDT Inhaled Oxygen Concentration - - Weight 69.5 kg (153 lb 3.5 oz) 12/26/2023 8:15 P M CDT Height 157.5 cm (5' 2 ) 12/26/2023 8:15 PM CDT Body Mass Index 28.02 12/26/2023 8:15 PM CDT Plan of Treatment Not on file Insurance ACCESS Care Teams Aggregate Conveyor Operator Relationship Specialty Start Date End Date No, Physician PCP - General 12/25/23
--- OUTSIDE RECORDS SUMMARY | 2024-06-16 16:31 | XMS_ITS | Clinical Summary ---
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 Gender Identity Not on file Sexual Orientation Not on file Obstetrics History Last Filed Vital Signs Vital Sign Reading [...] 12/26/2023 8:15 PM CDT Plan of Treatment Health Maintenance Due Date Last Done Comments Breast Cancer Screening-Mammogram 1972 Colon Cancer Screening-Colonoscopy 1972 Depression Screening 1972 Hepatitis C Screening 1972 Pneumococcal vaccine <65 (1 of 2 - PCV) 02/27/1978 Hepatitis B Screening 02/27/1990 Regular Well Visit/Exam 18-64 02/27/1990 Zoster Vaccine (1 of 2) 02/27/2022 Influenza Vaccine (#1) 2024 2, 03/26/2021, 02/18/2018 DTaP/Tdap/Td Vaccine (2 - Td or Tdap) 11/13/202910/2019, 08/18/2007 Insurance [employer] Care Teams Service Center Coordinator Relationship Specialty Start Date End Date No, Physician PCP - General 12/25/23
[2024-06-16 17:24] VITALS: BP 124/83; PULSE 112; RESP 16; TEMP 36.5; O2SAT 100
--- NOTE | 2024-06-16 17:24 | ED.ABDPAIN ---
HPI - Abdominal Pain General Chief Complaint: Abdominal Pain <Bety Estevez PA-C - Last Filed: 06/16/24 17:29> Stated Complaint: L sided abd pain & diarrhea 3 days <Bety Estevez PA-C - Last Filed: 06/16/24 17:29> Time Seen by Provider: 06/16/24 17:25 <Bety Estevez PA-C - Last Filed: 06/16/24 17:29> Focused HPI: Patient is a 54-year-old female who presents the ED with report of left lower abdominal pain. Patient reports having pain throughout her LLQ for the past 3 days. States it has been worsening, was severe last night. Hx of previous diverticulitis and states this feels similar, but worse. Has not taken anything specific for pain, but does take bentyl, gas-x, and antacid daily. Reports N/V/D, low grade subjective fevers. Denies difficulty urinating, rectal bleeding, melena. GENERAL: Well-appearing, well-nourished, and in no acute distress. HEAD: Normocephalic, atraumatic. CHEST: Clear to auscultation. ?No respiratory distress. HEART: Regular rate and rhythm.? ABD: TTP in LLQ, no rebound. Normoactive BS NEURO: ?Alert and oriented x3. Patient screened in triage and initial orders placed.? ?Additional care and disposition to be based upon?diagnostic testing and treatment. <Bety Estevez PA-C - Last Filed: 06/16/24 17:29> Source: patient <Bety Estevez PA-C - Last Filed: 06/16/24 17:29> Mode of arrival: ambulatory <Bety Estevez PA-C - Last Filed: 06/16/24 17:29> Limitations: no limitations <Bety Estevez PA-C - Last Filed: 06/16/24 17:29> History of Present Illness HPI narrative: agree with the HPI as described above. <Mat Vogel MD - Last Filed: 06/17/24 00:02> Related Data Home Medications: Home Medications ?Medication ?Instructions ?Recorded ?Confirmed ?Last Taken ?Type multivitamin (Daily Vitamin 1 tablet PO DAILY 06/17/19 03/08/24 Unknown History Formula tablet) simethicone 125 mg capsule (Gas 125 mg PO DAILY PRN Pain 11/01/21 03/08/24 Unknown History Relief (simethicone)) loratadine 10 mg tablet (Claritin) 10 mg PO DAILY 12/13/21 03/08/24 Unknown History omega 8-sju-gxb-fish oil 100 1 cap PO DAILY 01/31/22 03/08/24 Unknown History mg-160 mg-1,000 mg capsule (Fish Oil) vitamin B complex 1 tablet PO DAILY 09/03/23 03/08/24 Unknown History <Bety Estevez PA-C - Last Filed: 06/16/24 17:29> Allergies/Adverse Reactions: Allergies Allergy/AdvReac Type Severity Reaction Status Date / Time No Known Allergies Allergy Verified 06/16/24 16:29 <Bety Estevez PA-C - Last Filed: 06/16/24 17:29> Review of Systems Review of Systems: As reviewed above in HPI <Mat Vogel MD - Last Filed: 06/17/24 00:02> [facility] Past Medical History Medical History: Medical History Obesity Irritable bowel syndrome with diarrhea Acute diverticulitis of intestine Diverticulitis of sigmoid colon Bilateral hand pain History of chemotherapy Inflammatory arthritis (~2018) Anxiety Chronic back pain Arthritis Kidney stones Polycystic ovarian disease GERD (gastroesophageal reflux disease) IBS (irritable bowel syndrome) Hypertension Bronchitis Seasonal allergies Strain of right gastrocnemius muscle (~02/2019) <Bety Estevez PA-C - Last Filed: 06/16/24 17:29> Surgical History Surgical History: Surgical History H/O ovarian cystectomy H/O dilation and curettage History of hysterectomy History of cholecystectomy <Bety Estevez PA-C - Last Filed: 06/16/24 17:29> Family History Family History: Family History Mother Patient's mother is in good health Family history of cardiovascular disease Family history of arthritis Family history of atrial fibrillation Breast cancer Hypertension Father Patient's father is in good health Family history of lymphoma Hypertension Family history of cardiovascular disease Acute myocardial infarction Family history of arthritis Grandparent Carcinoma of colon Hypertension Depression Anxiety Heart problem Cerebrovascular accident Disorder of thyroid <NADIRA Waddell Last Filed: 06/16/24 17:29> Social History Social History: Social History Smoking packs per day: 0.5 Smoking cigarettes per day: 10.0 Years smoked: 30 Smoking pack-years: 15.00 Smoking status: Current every day smoker Tobacco type: cigarettes Second hand tobacco smoke exposure: Yes Alcohol intake: former Alcohol use details: Social Substance use: never Substance use type: does not use Do You Feel Safe in your Home?: Yes Lack of Transportation: No Lack of Food: Never True Current Housing: I Have Housing Concerned About Future Housing: No Difficulty Paying Gas/Electric Bills: No Difficulty Paying for Meds: No Currently Unemployed: No Education: Associate Degree Difficulty w/ Childcare or Family Care: No Living arrangements: with family Occupation/Education: unemployed Gender identity (if verbalized by the patient): Female Sexual Orientation (if Verbalized by the Patient): Straight or Heterosexual Spiritual care concerns: No Agree to blood products: Yes <NADIRA Waddell Last Filed: 06/16/24 17:29> Exam Narrative: GENERAL: [Well-appearing, well-nourished, and in no acute distress.] HEAD: [Normocephalic, atraumatic.] EYES: [PERRLA and EOMI.] ENT: Nares clear, no rhinorrhea or epistaxis. Mucous membranes Slightly dry. NECK: Supple. CHEST: [Clear to auscultation. No respiratory distress.] HEART: [Regular rate and rhythm]. No murmur heard. [Normal peripheral pulses.] ABDOMEN: [Soft, nondistended], [nontender], [No rigidity or guarding] EXTREMITIES: Normal range of motion. [No edema.] SKIN: Warm, dry, no rash. NEURO: [No focal deficits]. Alert and oriented [x3.] PSYCH: [Normal mood and affect.] <Mat Vogel MD - Last Filed: 06/17/24 00:02> Course Vital Signs Vital signs: Vital Signs Temperature 36.5 C 06/16/24 17:24 Pulse Rate 112 H 06/16/24 17:24 Respiratory Rate 16 06/16/24 17:24 Blood Pressure 124/83 06/16/24 17:24 Pulse Oximetry 100 06/16/24 17:24 Oxygen Delivery Room Air 06/16/24 17:24 Temperature 36.5 C 06/16/24 17:24 Pulse Rate 85 06/16/24 21:11 Respiratory Rate 16 06/16/24 21:11 Blood Pressure 115/82 06/16/24 21:11 Pulse Oximetry 100 06/16/24 21:11 Oxygen Delivery Room Air 06/16/24 17:24 <Bety Estevez PA-C - Last Filed: 06/16/24 17:29> Vital Signs Temperature 36.5 C 06/16/24 17:24 Pulse Rate 112 H 06/16/24 17:24 Respiratory Rate 16 06/16/24 17:24 Blood Pressure 124/83 06/16/24 17:24 Pulse Oximetry 100 06/16/24 17:24 Oxygen Delivery Room Air 06/16/24 17:24 Temperature 36.5 C 06/16/24 17:24 Pulse Rate 85 06/16/24 21:11 Respiratory Rate 16 06/16/24 21:11 Blood Pressure 115/82 06/16/24 21:11 Pulse Oximetry 100 06/16/24 21:11 Oxygen Delivery Room Air 06/16/24 17:24 <Mat Vogel MD - Last Filed: 06/17/24 00:02> MDM - Abdominal Pain MDM Narrative Medical decision making narrative: MSE by PERLITA in triage. <Bety Estevez PA-C - Last Filed: 06/16/24 17:29> MSE by PERLITA in triage. 54-year-old female with a past medical history including oral bowel syndrome with diarrheal type, history of diverticulosis with previous diverticulitis flares. She states she had a recent flare-up 6 months prior. She states she has had recent colonoscopies without any concerning findings but unable to tell me when this happened. For last 3 days she has been having fatigue, subjective chills, nausea, vomiting and watery diarrhea. No bloody diarrhea or significant pain. She describes her pain is discomfort in her lower abdomen left side similar to her previous diverticulitis flare. She is slightly tachycardic with a pulse 112 but no fever, blood pressure concerns, tachypnea or hypoxia. She is otherwise well-appearing, has a soft nondistended nontender abdomen. Some slight dryness to mucous membranes. given her history including IBS and previous diverticulitis flares she could very well have an episode of gastroenteritis, diverticulitis or other intra-abdominal process. She previous had a cholecystectomy but no other previous abdominal surgery. Denies any urinary complaints or vaginal discharge. No fever here. Laboratory studies including CBC, CMP and a CT scan of the abdomen pelvis was obtained. She was provided Zofran which completely alleviated her nauseousness. A L of fluid was provided as well as morphine provided for analgesia with good effect. Laboratory studies show a minor leukocytosis of 13.8, normal hemoglobin, normal platelet count. Chemistry panel shows no kidney injury, normal electrolytes, normal glucose and LFTs. Urinalysis without any infection. CT scan shows some eccentric mural thickening of the rectum with some possible air and distended distal sigmoid colon without any signs of obstruction. Colonic diverticulosis but no diverticulitis. I called Dr. Gallardo the radiologist and went over the CT results to get a better idea of what these results were showing. after discussion and patient has had similar findings on her recent CT scan December and could represent a stricture from her previous diverticulitis flare ups but there is no active signs of infection or any inflammatory evidence in the area. no evidence of an obstruction, recommendations to obtain a non emergent colonoscopy for this. I relayed these findings to the patient who had improvement in pain control and repeat vital sign showing improvement. She does have a GI doctor that she can see on a short-term basis. She is given strict return precautions and verbalized understanding of the instructions. She is tolerating p.o. intake and we sent her home with Bentyl, Zofran and loperamide as needed. She will return with any new concerns and follow up on a regular outpatient basis. <Mat Vogel MD - Last Filed: 06/17/24 00:02> Medical Records Attestation: I reviewed the patient's medical records. <Mat Vogel MD - Last Filed: 06/17/24 00:02> Lab Data Attestation: I reviewed the patient's lab results. <Mat Vogel MD - Last Filed: 06/17/24 00:02> Result diagrams: 06/16/24 18:43 06/16/24 18:43 <Bety Estevez PA-C - Last Filed: 06/16/24 17:29> Labs: Lab Results 06/16/24 06/16/24 Range/Units 17:57 18:43 WBC 13.8 H (4.5-10.0) K/mm3 RBC 4.56 (4.2-5.4) M/mm3 Hgb 14.3 (12.0-15.0) g/dL Hct 41.8 (37.0-47.0) % MCV 91.7 (80-100) fl MCH 31.4 (26-34) pg MCHC 34.2 (32-36) g/dl RDW 12.6 (11.5-14.5) % Plt Count 319 (150-375) k/mm3 MPV 9.1 (7.4-10.4) fl Immature Gran % (Auto) 0.4 (0-0.5) % Neut % (Auto) 65.6 (45.5-73.1) % Lymph % (Auto) 26.7 (18.3-44.2) % Kaufman % (Auto) 4.8 (2.6-8.5) % Eos % (Auto) 2.3 (0-4.4) % Baso % (Auto) 0.2 (0.2-1.2) % Lymph # (Auto) 3.67 H (0.9-3.2) K/mm3 Kaufman # (Auto) 0.7 H (0.1-0.6) K/mm3 Eos # (Auto) 0.3 (0-0.3) K/mm3 Baso # (Auto) 0.0 (0.0-0.1) K/mm3 Abs Immat Gran (auto) 0.05 H (0.00-0.031) K/mm3 Absolute Neuts (auto) 9.0 H (1.3-6.7) K/mm3 Absolute Nucleated RBC 0.000 (0.0-0.012) K/mm3 Nucleated RBC % 0.0 (0.0-0.2) % Sodium 137 (137-145) mmol/L Potassium 3.6 (3.4-5.0) mmol/L Chloride 102 (98-107) mmol/L Carbon Dioxide 21 L (22-30) mmol/L Anion Gap 14 H (4-12) mmol/L BUN 11 D (7-17) mg/dL Creatinine 0.46 L (0.7-1.0) mg/dL Estim Creat Clear Calc 107 ml/min Estimated GFR > 60 (59 - ) Glucose 103 (65-110) mg/dL Calcium 9.6 (8.4-10.2) mg/dL Total Bilirubin 0.5 (0.2-1.3) mg/dL AST 37 H (14-36) U/L ALT 23 (6-35) U/L Alkaline Phosphatase 63 (38-126) U/L Total Protein 8.0 (6.3-8.2) g/dL Albumin 4.7 (3.5-5.1) g/dL Lipase 81 (23-300) U/L Urine Color Yellow (Yellow) Urine Appearance Cloudy H (Clear) Urine pH 6.0 (5.0-9.0) Ur Specific [place] 1.009 (1.001-1.035) Urine Protein Negative (Negative) mg/dL Urine Glucose (UA) Negative (Negative) mg/dL Urine Ketones Negative (Negative) mg/dL Ur Blood (Man) Negative (Negative) Urine Nitrate Negative (Negative) Urine Bilirubin Negative (Negative) Urine Urobilinogen 0.2 (<2.0) mg/dL Add Ur Microanalysis Reviewed Leukocyte Esterase Rfl Negative (Negative) JERRY/UL Urine RBC 11-20 H (0-2) /hpf Urine WBC 0-5 (0-3) /hpf Ur Squamous Epith Cells Few (Few) /hpf Urine Bacteria 1+ H /hpf Urine Casts 3-5 Urine Mucus Present /lpf <Bety Estevez PA-C - Last Filed: 06/16/24 17:29> Lab Results 06/16/24 06/16/24 Range/Units 17:57 18:43 WBC 13.8 H (4.5-10.0) K/mm3 RBC 4.56 (4.2-5.4) M/mm3 Hgb 14.3 (12.0-15.0) g/dL Hct 41.8 (37.0-47.0) % MCV 91.7 (80-100) fl MCH 31.4 (26-34) pg MCHC 34.2 (32-36) g/dl RDW 12.6 (11.5-14.5) % Plt Count 319 (150-375) k/mm3 MPV 9.1 (7.4-10.4) fl Immature Gran % (Auto) 0.4 (0-0.5) % Neut % (Auto) 65.6 (45.5-73.1) % Lymph % (Auto) 26.7 (18.3-44.2) % Kaufman % (Auto) 4.8 (2.6-8.5) % Eos % (Auto) 2.3 (0-4.4) % Baso % (Auto) 0.2 (0.2-1.2) % Lymph # (Auto) 3.67 H (0.9-3.2) K/mm3 Kaufman # (Auto) 0.7 H (0.1-0.6) K/mm3 Eos # (Auto) 0.3 (0-0.3) K/mm3 Baso # (Auto) 0.0 (0.0-0.1) K/mm3 Abs Immat Gran (auto) 0.05 H (0.00-0.031) K/mm3 Absolute Neuts (auto) 9.0 H (1.3-6.7) K/mm3 Absolute Nucleated RBC 0.000 (0.0-0.012) K/mm3 Nucleated RBC % 0.0 (0.0-0.2) % Sodium 137 (137-145) mmol/L Potassium 3.6 (3.4-5.0) mmol/L Chloride 102 (98-107) mmol/L Carbon Dioxide 21 L (22-30) mmol/L Anion Gap 14 H (4-12) mmol/L BUN 11 D (7-17) mg/dL Creatinine 0.46 L (0.7-1.0) mg/dL Estim Creat Clear Calc 107 ml/min Estimated GFR > 60 (59 - ) Glucose 103 (65-110) mg/dL Calcium 9.6 (8.4-10.2) mg/dL Total Bilirubin 0.5 (0.2-1.3) mg/dL AST 37 H (14-36) U/L ALT 23 (6-35) U/L Alkaline Phosphatase 63 (38-126) U/L Total Protein 8.0 (6.3-8.2) g/dL Albumin 4.7 (3.5-5.1) g/dL Lipase 81 (23-300) U/L Urine Color Yellow (Yellow) Urine Appearance Cloudy H (Clear) Urine pH 6.0 (5.0-9.0) Ur Specific [place] 1.009 (1.001-1.035) Urine Protein Negative (Negative) mg/dL Urine Glucose (UA) Negative (Negative) mg/dL Urine Ketones Negative (Negative) mg/dL Ur Blood (Man) Negative (Negative) Urine Nitrate Negative (Negative) Urine Bilirubin Negative (Negative) Urine Urobilinogen 0.2 (<2.0) mg/dL Add Ur Microanalysis Reviewed Leukocyte Esterase Rfl Negative (Negative) JERRY/UL Urine RBC 11-20 H (0-2) /hpf Urine WBC 0-5 (0-3) /hpf Ur Squamous Epith Cells Few (Few) /hpf Urine Bacteria 1+ H /hpf Urine Casts 3-5 Urine Mucus Present /lpf <Mat Vogel MD - Last Filed: 06/17/24 00:02> Imaging Data Attestation: I personally reviewed and interpreted this imaging study as follows: <Mat Vogel MD - Last Filed: 06/17/24 00:02> Radiologist's impression: ITS Impressions Abdomen/Pelvis CT 06/16/24 22:52 IMPRESSION: Eccentric mural thickening within the rectum with possible air opacified and distended distal sigmoid colon, extending to the left of midline. Nonemergent follow-up with direct visualization is recommended. Colonic diverticulosis. Right renal nonobstructing calculus. Hepatomegaly <Bety Estevez PA-C - Last Filed: 06/16/24 17:29> ITS Impressions Abdomen/Pelvis CT 06/16/24 22:52 IMPRESSION: Eccentric mural thickening within the rectum with possible air opacified and distended distal sigmoid colon, extending to the left of midline. Nonemergent follow-up with direct visualization is recommended. Colonic diverticulosis. Right renal nonobstructing calculus. Hepatomegaly <Mat Vogel MD - Last Filed: 06/17/24 00:02> Discharge Plan Discharge Clinical Impression: Abdominal pain, History of colonic diverticulitis <Bety Estevez PA-C - Last Filed: 06/16/24 17:29> Patient Disposition: Home, Self-Care <NADIRA Waddell Last Filed: 06/16/24 17:29> Condition: Stable <NADIRA Waddell Last Filed: 06/16/24 17:29> Instructions: Antibiotic Form, Diverticulosis (DC), Diverticulitis Diet (ED), Abdominal Pain (ED) <Bety Estevez PA-C - Last Filed: 06/16/24 17:29> Additional Instructions: You have some eccentric mural thickening within the rectum and distal colon which could be a stricture or narrowing from prior diverticulitis. No evidence of active inflammation or infection at this time, no evidence of dehydration. We need you to follow-up with her GI doctor to obtain a non emergent colonoscopy and continue taking symptomatic controlling medications including dicyclomine, Zofran, oxycodone for breakthrough pain, loperamide for diarrhea. If you have any worsening pain, inability to tolerate p.o. intake, intractable fevers despite Tylenol or any other concerns please return to the emergency department otherwise follow-up with your regular doctor and GI doctor on a short-term basis. <Bety Estevez PA-C - Last Filed: 06/16/24 17:29> Patient Language: Honduran <NADIRA Waddell Last Filed: 06/16/24 17:29> Prescriptions: New loperamide [Anti-Diarrheal (loperamide)] 2 mg capsule 2 mg PO Q6H PRN (Reason: loose stool) Qty: 14 0RF dicyclomine 20 mg tablet 20 mg PO TID PRN (Reason: abdominal pain) Qty: 20 0RF ondansetron 4 mg tablet,disintegrating 4 mg PO Q8H PRN (Reason: nausea and vomiting) Qty: 14 0RF No Action valacyclovir [Valtrex] 1 gram tablet 1,000 mg PO TID Qty: 21 1RF simethicone [Gas Relief (simethicone)] 125 mg capsule 125 mg PO DAILY PRN (Reason: Pain) loratadine [Claritin] 10 mg tablet 10 mg PO DAILY Fish Oil 100-160-1,000 mg capsule 1 cap PO DAILY vitamin B complex Tablet 1 tablet PO DAILY lisinopril-hydrochlorothiazide 20-25 mg tablet 1 tablet PO DAILY Qty: 90 1RF fluticasone propionate [Flonase Allergy Relief] 50 mcg/actuation spray,suspension 2 spray intranasal DAILY Qty: 16 2RF Rx Instructions: administer into each nostril gabapentin 300 mg capsule 300 mg PO QHS Qty: 90 1RF albuterol sulfate 90 mcg/actuation HFA aerosol inhaler 2 inh inhalation Q4H PRN (Reason: shortness of breath or wheezing) Qty: 8.5 1RF esomeprazole magnesium 40 mg capsule,delayed release(DR/EC) 40 mg PO DAILY Qty: 90 1RF multivitamin [Daily Vitamin Formula] Tablet 1 tablet PO DAILY metoprolol succinate 25 mg tablet extended release 24 hr See Rx Instructions .ROUTE .COMPLEX Qty: 90 2RF Dose Instruction: Take 1 tablet by mouth once daily Rx Instructions: Take 1 tablet by mouth once daily rosuvastatin 5 mg tablet See Rx Instructions .ROUTE .COMPLEX Qty: 90 0RF Dose Instruction: Take 1 tablet by mouth once daily Rx Instructions: Take 1 tablet by mouth once daily meloxicam 7.5 mg tablet 7.5 mg PO DAILY Qty: 90 1RF duloxetine 60 mg capsule,delayed release(DR/EC) See Rx Instructions .ROUTE .COMPLEX Qty: 90 0RF Dose Instruction: Take 1 capsule by mouth once daily Rx Instructions: Take 1 capsule by mouth once daily potassium chloride 20 mEq tablet extended release See Rx Instructions .ROUTE .COMPLEX Qty: 30 0RF Dose Instruction: Take 1 tablet by mouth once daily Rx Instructions: Take 1 tablet by mouth once daily dicyclomine 20 mg tablet See Rx Instructions .ROUTE .COMPLEX Qty: 60 0RF Dose Instruction: TAKE 1 TABLET BY MOUTH THREE TIMES DAILY NEEDED FOR ABDOMINAL PAIN Rx Instructions: TAKE 1 TABLET BY MOUTH THREE TIMES DAILY NEEDED FOR ABDOMINAL PAIN ondansetron 4 mg tablet,disintegrating 4 mg PO Q8H PRN (Reason: nausea and vomiting) Qty: 14 0RF <Bety Estevez PA-C - Last Filed: 06/16/24 17:29> Follow-up/Referrals: Alley [place] APRN [Primary Care Provider] - <Bety Estevez PA-C - Last Filed: 06/16/24 17:29> Time of Disposition: 23:56 <Bety Estevez PA-C - Last Filed: 06/16/24 17:29> 23:56 <Mat Vogel MD - Last Filed: 06/17/24 00:02>
--- NOTE | 2024-06-16 17:46 | PC.NURSE ---
Attempted IV x2 with no success.
[2024-06-16] MEDS: HYDROcodone/acetaminophen (*CRX) 5-325 MG TABLET 1 TAB PO (17:54)
[2024-06-16] MEDS: ONDANSETRON INJ 4 MG/2 ML VIAL IV PUSH (18:01)
[2024-06-16 18:17] LABS: Add Urine Microscopic? YES; Appearance Urine Cloudy (Clear); Bacteria Urine 1+ /hpf; Bilirubin Urine Negative (Negative); Blood Urine Negative (Negative); Color Urine Yellow (Yellow); Glucose Urine UA Negative (Negative); Ketones Urine Negative (Negative); Leukocyte Esterase Ur Negative LEU/UL (Negative); Mucus Urine Present /lpf; Need Manual Microscopic Reviewed; Nitrate Urine Negative (Negative); Protein Urine Negative (Negative); Specific Grav Ur 1.009 (1.001-1.035); Squamous Epithelial Cell Urine Few /hpf (Few); Urobilinogen Urine 0.2 mg/dL (<2.0); WBC Urine 0-5 /hpf (0-3)
[2024-06-16 18:52] LABS: Basophils Percent Auto 0.2 % (0.2-1.2); Eosinophils Absolute Auto 0.3 K/mm3 (0-0.3); Eosinophils Percent Auto 2.3 % (0-4.4); Hematocrit 41.8 % (37.0-47.0); Hemoglobin 14.3 g/dL (12.0-15.0); Immature Granulocyte Absolute 0.05 K/mm3 (0.00-0.031); Immature Granulocyte Percent A 0.4 % (0-0.5); Lymphocytes Absolute Auto 3.67 K/mm3 (0.9-3.2); Lymphocytes Percent Auto 26.7 % (18.3-44.2); Mean Corpuscular HGB Conc 34.2 g/dl (32-36); Mean Corpuscular Hemoglobin 31.4 pg (26-34); Mean Corpuscular Volume 91.7 fl (80-100); Mean Platelet Volume 9.1 fl (7.4-10.4); Monocytes Absolute Auto 0.7 K/mm3 (0.1-0.6); Monocytes Percent Auto 4.8 % (2.6-8.5); Neutrophils Percent Auto 65.6 % (45.5-73.1); Platelet Count Result 319 k/mm3 (150-375); Red Blood Count 4.56 M/mm3 (4.2-5.4); Red Cell Distribution Width 12.6 % (11.5-14.5); White Blood Count 13.8 K/mm3 (4.5-10.0)
[2024-06-16 19:05] LABS: Alanine Aminotransferase 23 U/L (6-35); Albumin Level 4.7 g/dL (3.5-5.1); Bilirubin,Total 0.5 mg/dL (0.2-1.3); Carbon Dioxide 21 mmol/L (22-30); Glucose 103 mg/dL (65-110); Potassium 3.6 mmol/L (3.4-5.0)
[2024-06-16] MEDS: MORPHINE SULFATE (*CRX) 4 MG/ML INJ IV PUSH (21:09)
[2024-06-16 21:11] VITALS: BP 115/82; PULSE 85; RESP 16; O2SAT 100
[2024-06-16 21:23] LABS: Alkaline Phosphatase 63 U/L (38-126); Anion Gap 14 mmol/L (4-12); Aspartate Amino Transferase 37 U/L (14-36); Blood Urea Nitrogen 11 mg/dL (7-17); Calcium 9.6 mg/dL (8.4-10.2); Chloride 102 mmol/L (98-107); Estimated CRCL calculation 107 ml/min; Estimated Glomerular Filt Rate > 60; Lipase 81 U/L (23-300); Sodium 137 mmol/L (137-145)
--- OUTSIDE RECORDS SUMMARY | 2024-06-16 22:30 | XMS_ITS | Clinical Summary ---
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
--- OUTSIDE RECORDS SUMMARY | 2024-06-16 22:30 | XMS_ITS | Referral Summary ---
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
[2024-06-17 01:14] VITALS: BP 127/85; PULSE 75; RESP 16; O2SAT 98
== END 2024-06-17 01:16 | disposition home or self-care (01) ==
PROVIDERS: Physician Assistant; Emergency Provider Student in an Organized Health Care Education/Training Program; PCP Nurse Practitioner Family
DX: R10.32 Left lower quadrant pain (principal); I10 Essential (primary) hypertension; E66.9 Obesity, unspecified; Z68.27 Body mass index [BMI] 27.0-27.9, adult; E28.2 Polycystic ovarian syndrome; K58.0 Irritable bowel syndrome with diarrhea; K21.9 Gastro-esophageal reflux disease without esophagitis; M19.90 Unspecified osteoarthritis, unspecified site; F17.210 Nicotine dependence, cigarettes, uncomplicated; Z87.442 Personal history of urinary calculi; Z92.21 Personal history of antineoplastic chemotherapy; Z90.710 Acquired absence of both cervix and uterus; Z90.49 Acquired absence of other specified parts of digestive tract; K57.90 Diverticulosis of intestine, part unspecified, without perforation or abscess without bleeding; N20.0 Calculus of kidney; R16.0 Hepatomegaly, not elsewhere classified
CPT/HCPCS: 36415; 74177; 80053; 81001; 83690; 85025; 96374; 96375; 99284; A9270; J2270; J2405; Q9967

== ENCOUNTER 2024-06-23 10:50 | Outpatient (CLI) | payer BC, SELFPAY ==
--- OUTSIDE RECORDS SUMMARY | 2024-06-23 11:04 | XMS_ITS | Clinical Summary ---
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 Care Teams Student Life Dean Relationship Specialty Start Date End Date No, Physician PCP - General 12/25/23
--- OUTSIDE RECORDS SUMMARY | 2024-06-23 11:04 | XMS_ITS | Referral Summary ---
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
[2024-06-23 11:59] LABS: Basophils Absolute Auto 0.1 K/mm3 (0.0-0.1); Basophils Percent Auto 0.6 % (0.2-1.2); Eosinophils Absolute Auto 0.2 K/mm3 (0-0.3); Eosinophils Percent Auto 2.4 % (0-4.4); Hematocrit 41.7 % (37.0-47.0); Immature Granulocyte Absolute 0.04 K/mm3 (0.00-0.031); Immature Granulocyte Percent A 0.4 % (0-0.5); Lymphocytes Absolute Auto 2.34 K/mm3 (0.9-3.2); Lymphocytes Percent Auto 24.9 % (18.3-44.2); Mean Corpuscular HGB Conc 33.6 g/dl (32-36); Mean Corpuscular Hemoglobin 31.6 pg (26-34); Mean Corpuscular Volume 94.1 fl (80-100); Mean Platelet Volume 9.3 fl (7.4-10.4); Monocytes Absolute Auto 0.4 K/mm3 (0.1-0.6); Neutrophils Absolute Auto 6.4 K/mm3 (1.3-6.7); Neutrophils Percent Auto 67.7 % (45.5-73.1); Platelet Count Result 373 k/mm3 (150-375); Red Blood Count 4.43 M/mm3 (4.2-5.4); Red Cell Distribution Width 12.4 % (11.5-14.5); White Blood Count 9.4 K/mm3 (4.5-10.0)
[2024-06-23 12:08] LABS: Alanine Aminotransferase 26 U/L (6-35); Albumin Level 4.7 g/dL (3.5-5.1); Alkaline Phosphatase 67 U/L (38-126); Anion Gap 10 mmol/L (4-12); Aspartate Amino Transferase 31 U/L (14-36); Bilirubin,Total 0.4 mg/dL (0.2-1.3); Blood Urea Nitrogen 7 mg/dL (7-17); Calcium 9.7 mg/dL (8.4-10.2); Carbon Dioxide 31 mmol/L (22-30); Chloride 99 mmol/L (98-107); Estimated Glomerular Filt Rate > 60; Glucose 98 mg/dL (65-110); Potassium 3.5 mmol/L (3.4-5.0); Sodium 140 mmol/L (137-145)
[2024-06-23 12:15] LABS: INR 0.9; Prothrombin Time 12.6 Seconds (11.1-14.7)
[2024-06-23 13:01] LABS: Hepatitis B Surface Antigen Negative (Negative)
[2024-06-23 13:06] LABS: HAV RESULT Negative (Negative); Hepatitis B Core IgM Result Negative (Negative)
[2024-06-23 13:18] LABS: Hepatitis C Virus Antibody Negative (Negative)
== END 2024-06-23 10:51 | disposition home or self-care (01) ==
LOC: ANHLAB 10:51
PROVIDERS: PCP Nurse Practitioner Family; Visit Provider Nurse Practitioner Family
DX: R39.9 Unspecified symptoms and signs involving the genitourinary system (principal); I10 Essential (primary) hypertension; K21.9 Gastro-esophageal reflux disease without esophagitis; R93.5 Abnormal findings on diagnostic imaging of other abdominal regions, including retroperitoneum
CPT/HCPCS: 36415; 80053; 80074; 85025; 85610; 87086

== ENCOUNTER 2024-07-07 11:06 | Outpatient (CLI) | payer BC, SELFPAY ==
[2024-07-07 11:24] LABS: Hematocrit 40.3 % (37.0-47.0); Hemoglobin 13.2 g/dL (12.0-15.0); Mean Corpuscular HGB Conc 32.8 g/dl (32-36); Mean Corpuscular Hemoglobin 31.1 pg (26-34); Platelet Count Result 346 k/mm3 (150-375); Red Blood Count 4.24 M/mm3 (4.2-5.4); Red Cell Distribution Width 13.1 % (11.5-14.5); White Blood Count 11.5 K/mm3 (4.5-10.0)
[2024-07-07 11:38] LABS: Alanine Aminotransferase 20 U/L (6-35); Albumin Level 4.5 g/dL (3.5-5.1); Alkaline Phosphatase 55 U/L (38-126); Anion Gap 10 mmol/L (4-12); Aspartate Amino Transferase 23 U/L (14-36); Bilirubin,Total 0.4 mg/dL (0.2-1.3); Blood Urea Nitrogen 9 mg/dL (7-17); CRP 0.6 mg/dL (<1.0); Calcium 9.5 mg/dL (8.4-10.2); Carbon Dioxide 28 mmol/L (22-30); Chloride 101 mmol/L (98-107); Estimated Glomerular Filt Rate > 60; Glucose 95 mg/dL (65-110); Potassium 3.8 mmol/L (3.4-5.0); Sodium 139 mmol/L (137-145)
[2024-07-07 12:04] LABS: Erythrocyte Sedimentation Rate 20 mm/hr (0-20)
[2024-07-07 17:57] LABS: Iron 71 ug/dL (37-170)
[2024-07-07 18:08] LABS: Percent Iron Saturation 21 % (20-50)
== END 2024-07-07 11:07 | disposition home or self-care (01) ==
LOC: ANHLAB 11:07
PROVIDERS: PCP Nurse Practitioner Family; Visit Provider Nurse Practitioner
DX: R19.7 Diarrhea, unspecified (principal); R10.9 Unspecified abdominal pain
CPT/HCPCS: 36415; 74018; 80053; 82728; 82784; 83540; 83550; 85027; 85652; 86140; 86364

== ENCOUNTER 2024-07-09 11:44 | Outpatient (CLI) | payer BC, SELFPAY ==
[2024-07-09 14:35] LABS: Toxigenic C. Diff NEGATIVE (NEGATIVE)
== END 2024-07-09 11:45 | disposition home or self-care (01) ==
LOC: ANHLAB 11:45
PROVIDERS: PCP Nurse Practitioner Family; Visit Provider Nurse Practitioner
DX: R10.9 Unspecified abdominal pain (principal); R19.7 Diarrhea, unspecified
CPT/HCPCS: 82653; 83993; 87045; 87177; 87209; 87269; 87427; 87449; 87493

== ENCOUNTER 2024-07-11 01:58 | Day surgery (SDC) | payer BC, SELFPAY ==
[2024-07-08 13:45] VITALS: BMI 28.3
[2024-07-11 10:42] VITALS: BP 143/91; PULSE 113; RESP 18; TEMP 36.3; O2SAT 98
[2024-07-11] MEDS: LACTATED RINGERS 1,000 ML 150 ML IV CONT (10:54)
--- NOTE | 2024-07-11 11:16 | WPDANESEPPF ---
Anes - Initial Pre Proc Eval Procedure: Operation Date: 07/11/24 12:00 Proposed Procedures p Esophagogastroduodenoscopy & Colonoscopy - Parish Bartlett MD Date/Time: 07/11/24 11:16 Surgeon: Parish Bartlett MD Pre Op Diagnosis: gastro esophageal reflux abdominal pain Patient Data Age: 54 Gender: F Height: 1.57 m Weight: 68.2 kg Last Vital Signs Temp 36.3 C L 07/11/24 10:42 Pulse 113 H 07/11/24 10:42 Resp 18 07/11/24 10:42 BP 143/91 H 07/11/24 10:42 Pulse Ox 98 07/11/24 10:42 O2 Del Method Room Air 07/11/24 10:42 Allergies Allergy/AdvReac Type Severity Reaction Status Date / Time No Known Allergies Allergy Verified 07/11/24 10:39 Home Medications ?Medication ?Instructions ?Recorded ?Confirmed ?Type multivitamin (Daily Vitamin 1 tablet PO DAILY 06/17/19 07/11/24 History Formula tablet) simethicone 125 mg capsule (Gas 125 mg PO DAILY PRN Pain 11/01/21 07/08/24 History Relief (simethicone)) loratadine 10 mg tablet (Claritin) 10 mg PO DAILY 12/13/21 07/11/24 History omega 0-xai-hcz-fish oil 100 1 cap PO DAILY 01/31/22 07/11/24 History mg-160 mg-1,000 mg capsule (Fish Oil) vitamin B complex 1 tablet PO DAILY 09/03/23 07/11/24 History metoprolol succinate 25 mg See Rx Instructions .Route 10/16/23 07/11/24 Rx tablet,extended release 24 hr .COMPLEX #90 tabs albuterol sulfate 90 mcg/actuation 2 inh inhalation Q4H PRN shortness 02/08/24 07/08/24 Rx aerosol inhaler of breath or wheezing #8.5 grams gabapentin 300 mg capsule 300 mg PO QHS #90 caps 02/08/24 07/11/24 Rx meloxicam 7.5 mg tablet 7.5 mg PO DAILY #90 tabs 02/15/24 07/11/24 Rx valacyclovir 1 gram tablet 1,000 mg PO TID #21 tabs 03/08/24 07/11/24 Rx (Valtrex) dicyclomine 20 mg tablet See Rx Instructions .Route 06/04/24 07/08/24 Rx .COMPLEX #60 tabs ondansetron 4 mg disintegrating 4 mg PO Q8H PRN nausea and 06/15/24 07/08/24 Rx tablet vomiting #14 tabs lisinopril 20 1 tablet PO DAILY #90 tabs 06/21/24 07/11/24 Rx mg-hydrochlorothiazide 25 mg tablet omeprazole 40 mg capsule,delayed 40 mg PO DAILY #90 caps 06/23/24 07/11/24 Rx release duloxetine 60 mg capsule,delayed See Rx Instructions .Route 07/04/24 07/11/24 Rx release .COMPLEX #90 ea potassium chloride 20 mEq See Rx Instructions .Route 07/04/24 07/11/24 Rx tablet,extended release .COMPLEX #30 tabs rosuvastatin 5 mg tablet See Rx Instructions .Route 07/04/24 07/11/24 Rx .COMPLEX #90 tabs hydrocortisone acetate 25 mg 25 mg RECTAL BID #20 ea 07/07/24 07/08/24 Rx rectal suppository hyoscyamine sulfate 0.125 mg 0.125 mg PO QID #120 tabs 07/07/24 07/11/24 Rx sublingual tablet (Levsin/SL) Patient hx anesthesia problems: none Family hx anesthesia problems: none Results Review: All pre-operative results and documents have been reviewed as part of the pre-operative evaluation. [facility] Past Medical History Medical History Obesity Irritable bowel syndrome with diarrhea Acute diverticulitis of intestine Diverticulitis of sigmoid colon Bilateral hand pain History of chemotherapy Inflammatory arthritis (~2018) Anxiety Chronic back pain Arthritis Kidney stones Polycystic ovarian disease GERD (gastroesophageal reflux disease) IBS (irritable bowel syndrome) Hypertension Bronchitis Seasonal allergies Strain of right gastrocnemius muscle (~02/2019) Surgical History Surgical History H/O ovarian cystectomy H/O dilation and curettage History of hysterectomy History of cholecystectomy Family History Family History Mother Patient's mother is in good health Family history of cardiovascular disease Family history of arthritis Family history of atrial fibrillation Breast cancer Hypertension Father Patient's father is in good health Family history of lymphoma Hypertension Family history of cardiovascular disease Acute myocardial infarction Family history of arthritis Grandparent Carcinoma of colon Hypertension Depression Anxiety Heart problem Cerebrovascular accident Disorder of thyroid Social History Social History Smoking packs per day: 0.5 Smoking cigarettes per day: 10.0 Years smoked: 30 Smoking pack-years: 15.00 Smoking status: Current every day smoker Tobacco type: cigarettes Second hand tobacco smoke exposure: Yes Alcohol intake: former Alcohol use details: Social Substance use: never Substance use type: does not use Do You Feel Safe in your Home?: Yes Lack of Transportation: No Lack of Food: Never True Current Housing: I Have Housing Concerned About Future Housing: No Difficulty Paying Gas/Electric Bills: No Difficulty Paying for Meds: No Currently Unemployed: No Education: Associate Degree Difficulty w/ Childcare or Family Care: No Living arrangements: with family Occupation/Education: unemployed Gender identity (if verbalized by the patient): Female Sexual Orientation (if Verbalized by the Patient): Straight or Heterosexual Spiritual care concerns: No Agree to blood products: Yes Anes - Eval Final PreProcedure Day of Procedure 07/11/24 11:16 Patient weight: overweight Heart: regular rate and rhythm Lungs: clear to auscultation Airway: Mallampati scale class II Neurological: alert and oriented Last oral intake: >/= 8 hours ASA classification: III Emergent: no Anesthetic plan: proceed Anesthesia type and monitoring: general GIVS and standard monitoring Results Review: All pre-operative results and documents have been reviewed as part of the pre-operative evaluation. Informed Consent: The patient's anesthetic plan and its attendant risks and benefits were discussed with the patient/family/POA. Questions were solicited and answers provided to the satisfaction of the patient/family/POA.
--- NOTE | 2024-07-11 11:46 | WPDHPUPDATE1 ---
History and Physical Update Update Date/Time: 07/11/24 11:46 History and Physical has been reviewed, including an updated exam of the patient. There are NO changes in the patient's condition. Risks, benefits, and alternatives have been discussed and questions answered. Patient agrees to proceed with procedure.
--- NOTE | 2024-07-11 12:09 | SUR.OPER ---
egd ended at 1204 and colonoscopy started at 1209.
[2024-07-11 12:24] VITALS: BP 91/48; PULSE 94; RESP 16; O2SAT 100
[2024-07-11 12:34] VITALS: BP 118/76; PULSE 84; RESP 16; O2SAT 100
[2024-07-11 12:44] VITALS: BP 123/88; PULSE 88; RESP 19; O2SAT 98
== END 2024-07-11 12:57 | disposition home or self-care (01) ==
PROVIDERS: PCP Nurse Practitioner Family; Referring Provider Nurse Practitioner; Visit Provider Internal Medicine Gastroenterology
PROC: 0DJ08ZZ Inspection of Upper Intestinal Tract, Via Natural or Artificial Opening Endoscopic (ICD-10-PCS; CPT 45378; principal; 2024-07-11 12:00)
DX: K57.30 Diverticulosis of large intestine without perforation or abscess without bleeding (principal); K64.8 Other hemorrhoids; Z87.19 Personal history of other diseases of the digestive system; K21.9 Gastro-esophageal reflux disease without esophagitis; F17.210 Nicotine dependence, cigarettes, uncomplicated
CPT/HCPCS: 45378; 43239; 88305; J2003; J2704; J7120

== ENCOUNTER 2024-11-03 13:43 | Outpatient (CLI) | payer BC, SELFPAY ==
[2024-11-03 14:33] LABS: Basophils Absolute Auto 0.1 K/mm3 (0.0-0.1); Basophils Percent Auto 0.6 % (0.2-1.2); Eosinophils Absolute Auto 0.2 K/mm3 (0-0.3); Eosinophils Percent Auto 2.4 % (0-4.4); Hemoglobin 14.4 g/dL (12.0-15.0); Immature Granulocyte Absolute 0.03 K/mm3 (0.00-0.031); Immature Granulocyte Percent A 0.3 % (0-0.5); Lymphocytes Absolute Auto 2.68 K/mm3 (0.9-3.2); Lymphocytes Percent Auto 30.6 % (18.3-44.2); Mean Corpuscular HGB Conc 32.7 g/dl (32-36); Mean Corpuscular Hemoglobin 29.9 pg (26-34); Mean Corpuscular Volume 91.5 fl (80-100); Mean Platelet Volume 9.3 fl (7.4-10.4); Monocytes Absolute Auto 0.5 K/mm3 (0.1-0.6); Monocytes Percent Auto 6.2 % (2.6-8.5); Neutrophils Absolute Auto 5.2 K/mm3 (1.3-6.7); Neutrophils Percent Auto 59.9 % (45.5-73.1); Platelet Count Result 291 k/mm3 (150-375); Red Blood Count 4.81 M/mm3 (4.2-5.4); White Blood Count 8.8 K/mm3 (4.5-10.0)
[2024-11-03 14:38] LABS: Add Urine Microscopic? NO; Appearance Urine Clear (Clear); Bilirubin Urine Negative (Negative); Blood Urine Negative (Negative); Color Urine Yellow (Yellow); Glucose Urine UA Negative (Negative); Ketones Urine Negative (Negative); Leukocyte Esterase Ur Negative LEU/UL (Negative); Nitrate Urine Negative (Negative); Protein Urine Negative (Negative); Specific Grav Ur 1.018 (1.001-1.035); Urobilinogen Urine 0.2 mg/dL (<2.0); pH Urine 6.5 (5.0-9.0)
[2024-11-03 14:45] LABS: Alanine Aminotransferase 34 U/L (6-35); Albumin Level 4.6 g/dL (3.5-5.1); Alkaline Phosphatase 51 U/L (38-126); Anion Gap 10 mmol/L (4-12); Aspartate Amino Transferase 38 U/L (14-36); Bilirubin,Total 0.4 mg/dL (0.2-1.3); Blood Urea Nitrogen 13 mg/dL (7-17); CRP < 0.5 mg/dL (<1.0); Carbon Dioxide 29 mmol/L (22-30); Chloride 103 mmol/L (98-107); Estimated Glomerular Filt Rate > 60; Glucose 105 mg/dL (65-110); Potassium 3.3 mmol/L (3.4-5.0); Sodium 142 mmol/L (137-145); Total Protein 7.9 g/dL (6.3-8.2); Uric Acid 6.4 mg/dL (2.5-7.5)
[2024-11-03 14:54] LABS: Complement C3 184 mg/dL (88-165); Rheumatoid Factor < 12.0 IU/ML (<12)
[2024-11-03 15:37] LABS: Erythrocyte Sedimentation Rate 17 mm/hr (0-20)
[2024-11-05 02:34] LABS: DNA (ds) Antibody. <1 IU/mL; SM Antibody <1.0 NEG AI (<1.0 NEG); SM/RNP Antibody <1.0 NEG AI (<1.0 NEG)
[2024-11-07 16:28] LABS: Cyclic Citrullinated Peptide. <16 UNITS
== END 2024-11-03 13:44 | disposition home or self-care (01) ==
PROVIDERS: PCP Nurse Practitioner Family
DX: M19.90 Unspecified osteoarthritis, unspecified site (principal); M25.50 Pain in unspecified joint
CPT/HCPCS: 36415; 80053; 81003; 84550; 85025; 85652; 86038; 86039; 86140; 86160; 86200; 86225; 86235; 86430

== ENCOUNTER 2024-11-04 15:54 | Outpatient (CLI) | payer BC, SELFPAY ==
--- NOTE | ~2024-11-04 | MR_ITS ---
MRI of the cervical spine Clinical History: Radiculopathy Technique: Axial T2-weighted and gradient images, and sagittal T1-weighted, T2-weighted, and STIR maggie ges were acquired. Findings: There is no fracture or subluxation of the cervical spine. There is minimal reversal of the normal cervical lordosis. No suspicious bone marrow signal abnormality seen. At C2-C3, there is no disc bulge or herniation. No spinal canal stenosis, cord compression, or neural foraminal narrowing. At C3-C4, there is no disc bulge or herniation. No spinal canal stenosis, cord compression, or neural foraminal narrowing. At C4-C5, there is disc osteophyte complex with right neural foraminal narrowing, and possible minima l left neural foraminal narrowing. No canal stenosis or cord compression. At C5-C6, there is minimal disc osteophyte complex. No spinal canal stenosis, cord compression, or ne ural foraminal narrowing. At C6-C7, there is disc osteophyte complex with bilateral neural foraminal narrowing, right worse sherman n left. No canal stenosis or cord compression. Paravertebral soft tissues are unremarkable. No abnormal signal seen in the spinal cord. Impression: Moderate degenerative spondylitic changes at C4-C5 and C6-C7, as detailed above. Reviewed, dictated and finalized at location . Impression: Moderate degenerative spondylitic changes at C4-C5 and C6-C7, as detailed above .
== END 2024-11-04 15:55 | disposition home or self-care (01) ==
PROVIDERS: PCP Nurse Practitioner Family; Visit Provider Orthopaedic Surgery
DX: M47.892 Other spondylosis, cervical region (principal)
CPT/HCPCS: 72141

== ENCOUNTER 2024-11-07 17:25 | Outpatient (CLI) | payer BC, SELFPAY ==
--- OUTSIDE RECORDS SUMMARY | 2024-11-07 17:27 | XMS_ITS | Referral Summary ---
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 - Imaging [facility] [place] [place] [address] Osteoarthritis, unspecified osteoarthritis type, unspecified site; Arthralgia, unspecified joint; Smokes 1/2 pack per day Discharge Disposition: Discharge to home or self care 09/01/2024 10:00 AM CDT Office Visit [facility] Rheumatology at [address] [address] Yue Sanders NP Osteoarthritis, unspecified osteoarthritis type, unspecified site (Primary Dx); Arthralgia, unspecified joint; Smokes 1/2 pack per day 08/22/2024 Telephone [facility] Rheumatology at [address] [address] Patricia Gillis External Referral from Last 3 Months Allergies Active Allergy Reactions Criticality Noted Date Comments Hydromorphone Nausea only Low 06/24/2024 Medications ondansetron ODT (ZOFRAN-ODT) 4 mg disintegrating tablet Take 1 tablet (4 mg total) by mouth every 8 (eight) hours as needed for nausea or vomiting 20 tablet 4 Active simethicone (MYLICON) 125 mg chewable tablet Take 1 tablet (125 mg total) by mouth every 6 (six) hours as needed for flatulence Active loratadine (CLARITIN) 10 mg tablet Take 1 tablet (10 mg total) by mouth daily Active omega 9-smm-esp-fish oil 100-160-1,000 mg capsule Take 1,000 mg by mouth daily Active vitamin b complex tablet Take 1 tablet by mouth daily Active gabapentin (NEURONTIN) 300 mg capsule Take 1 capsule (300 mg total) by mouth nightly Active metoprolol XL (TOPROL-XL) 25 mg extended release tablet Take 1 tablet (25 mg total) by mouth daily Active rosuvastatin (CRESTOR) 5 mg tablet Take 1 tablet (5 mg total) by mouth daily Active DULoxetine DR (CYMBALTA) 60 mg capsule Take 1 capsule (60 mg total) by mouth daily Active lisinopril-hydroCH LOROthiazide (ZESTORETIC) 20-25 mg per tabletIndications: hypertension Take 1 tablet by mouth daily Active pantoprazole DR (PROTONIX) 40 mg EC tablet Take 1 tablet (40 mg total) by mouth daily Active loperamide (IMODIUM) 2 mg capsule Take 2 capsules (4 mg total) by mouth 3 (three) times a day as needed for diarrhea 30 capsule 5 Active dicyclomine (BENTYL) 20 mg tablet Take 1 tablet (20 mg total) by mouth 2 (two) times a day for 20 days 40 tablet 5 Active omeprazole (PriLOSEC) 40 mg capsule Take 1 capsule (40 mg total) by mouth daily 5 Active potassium chloride ER 20 mEq CR tablet Take 1 tablet (20 mEq total) by mouth daily 5 Active Active Problems Problem Noted Date Diagnosed Date Diarrhea 06/28/2024 Abdominal pain 06/28/2024 Colitis 06/25/2024 Social History Tobacco Use Types Packs/Day Years Used Date Smoking Tobacco: Every Day Cigarettes Tobacco Cessation:Ready to Q uit: Not Asked; Counseling Given: Not Answered [facility] Utilities Answer Date Recorded In the past 12 months has e [employer], oil, or water company threatened to shut off services in your home? No 06/28/2024 Social Connection and Isolat ion Panel [NHANES] Answer Date Recorded In a typical week, how many times do you talk on the phone with family, friends, or neighbors? More than three times a week 06/28/2024 How often do you get togethe r with friends or relatives? More than three times a week 06/28/2024 How often do you attend chur ch or orthodoxy services? 1 to 4 times per year 06/28/2024 Do you belong to any clubs o r organizations such as methodist groups, unions, fraternal or athletic groups, or school groups? No 06/28/2024 How often do you attend meet ings of the clubs or organizations you belong to? Never 06/28/2024 Are you , , di vorced, , never , or living with a partner? 06/28/2024 Overall Financial Resource Strain (CARDIA) Answe r Date Recorded How hard is it for you to pa y for the very basics like food, housing, medical care, and heating? Not hard at all 06/28/2024 Hunger Vital Sign Answer Date Recorded Within the past 12 months, y ou worried that your food would run out before you got the money to buy more. Never true 06/28/19 25 Within the past 12 months, t he food you bought just didn't last and you didn't have money to get more. Never true 06/28/2024 PRAPARE - Transportation Answer Date Re corded In the past 12 months, has l ack of transportation kept you from medical appointments or from getting medications? No 06/11 In the past 12 months, has l ack of transportation kept you from meetings, work, or from getting things needed for daily living? No 06/28/2024 Housing Stability Vital Sign Answer Trell e Recorded In the last 12 months, was t here a time when you were not able to pay the mortgage or rent on time? No 06/28/2024 In the past 12 months, how m any times have you moved where you were living? 0 06/28/2024 At any time in the past 12 m [facility], were you homeless or living in a residential (including now)? No 06/28/2024 Personal Safety Answer Date Recorded Have you ever been in or are you currently in a harmful physical or emotional relationship or is someone making you feel afraid or unsafe? 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 Gender Identity Not on file Sexual Orientation Not on file Last Filed Vital Signs Vital Sign Reading Time Taken Comments Blood Pressure 114/74 09/01/2024 9:56 AM CDT Pulse 89 09/01/2024 9:56 AM CDT Temperature 36.4 C (97.6 F) 09/01/2024 9:56 AM CDT Respiratory Rate 20 09/01/2024 9:56 AM CDT Oxygen Saturation 98% 09/01/2024 9:56 AM CDT Inhaled Oxygen Concentration - - Weight 68 kg (150 lb) 09/01/2024 9:56 AM CDT Height 157.5 cm (5' 2) 09/01/2024 9:56 AM CDT Body Mass Index 27.44 09/01/2024 9:56 AM CDT Plan of Treatment Not on file Procedures Procedure Name Priority Date/Time Associated Diagnosis Comments XR SPINE CERVICAL 2 OR 3 VIEWS Schedule Routine, Read Routine (OP Routine) 09/01/2024 12:00 PM CDT Osteoarthritis, unspecified osteoarthritis type, unspecified site Arthralgia, unspecified joint XR SHOULDER LEFT 2 OR MORE VIEWS Schedule Routine, Read Routine (OP Routine) 09/01/2024 12:00 PM CDT Osteoarthritis, unspecified osteoarthritis type, unspecified site Arthralgia, unspecified joint XR SHOULDER RIGHT 2 OR MORE VIEWS Schedule Routine, Read Routine (OP Routine) 09/01/2024 12:00 PM CDT Osteoarthritis, unspecified osteoarthritis type, unspecified site Arthralgia, unspecified joint XR KNEE RIGHT 3 VIEWS Schedule Routine, Read Routine (OP Routine) 09/01/2024 12:00 PM CDT Osteoarthritis, unspecified osteoarthritis type, unspecified site Arthralgia, unspecified joint XR KNEE LEFT 3 VIEWS Schedule Routine, Read Routine (OP Routine) 09/01/2024 12:00 PM CDT Osteoarthritis, unspecified osteoarthritis type, unspecified site Arthralgia, unspecified joint XR HAND BILATERAL 3 OR MORE VIEWS OF EACH Schedule Routine, Read Routine (OP Routine) 09/01/2024 12:00 PM CDT Osteoarthritis, unspecified osteoarthritis type, unspecified site Arthralgia, unspecified joint XR FOOT BILATERAL 3 OR MORE VIEWS OF EACH Schedule Routine, Read Routine (OP Routine) 09/01/2024 12:00 PM CDT Osteoarthritis, unspecified osteoarthritis type, unspecified site Arthralgia, unspecified joint from Last 3 Months Results * XR Foot Bilateral 3 or More Views of Each (09/01/2024 12:00 PM CDT) Anatomical Region Laterality Modality Lower Extremities, Foot Computed Radiography 09/01/2024 12:3 2 PM CDT Impressions 09/01/2024 12:32 PM CDT There is mild joint narrowing at multiple articulations, for example at the 1st digit MTP joint of the right foot and both interphalangeal joints. There is a bony protuberance at the base of the 2nd digit metatarsal of the right foot. There is no fracture, dislocation or erosive change. There is a small os peroneum on the right. There are tiny plantar calcaneal spurs bilaterally, left larger than right. There is no abnormal soft tissue swelling or radiopaque foreign body. Electronically signed by: Mike Moya M.D. Narrative 09/01/2024 12:32 PM CDT XR FOOT BILATERAL 3 OR MORE VIEWS OF EACH: 09/01/2024 12:15 PM CLINICAL INDICATION: bilateral foot pain. COMPARISON: None. Procedure Note Mike Moya MD - 09/01/2024 XR FOOT BILATERAL 3 OR MORE VIEWS OF EACH: 09/01/2024 12:15 PM CLINICAL INDICATION: bilateral foot pain. COMPARISON: None. IMPRESSION: There is mild joint narrowing at multiple articulations, for example at the 1st digit MTP joint of the right foot and both interphalangeal joints. There is a bony protuberance at the base of the 2nd digit metatarsal of the right foot. There is no fracture, dislocation or erosive change. There is a small os peroneum on the right. There are tiny plantar calcaneal spurs bilaterally, left larger than right. There is no abnormal soft tissue swelling or radiopaque foreign body. Electronically signed by: Mike Moya M.D. Yue Sanders NP IMG XR PROCEDURES Final Resul t * XR Hand Bilateral 3 or More Views of Each (09/01/2024 12:00 PM CDT) Anatomical Region Laterality Modality Upper Extremities, Hand Computed Radiography 09/01/2024 12:3 0 PM CDT Impressions 09/01/2024 12:30 PM CDT Alignment is anatomic. There is no fracture or erosive change. There is mild asymmetric soft tissue thickening around the 2nd and 3rd digit proximal phalanges of the left hand. There is no radiopaque foreign body. Electronically signed by: Mike Moya M.D. Narrative 09/01/2024 12:30 PM CDT XR HAND BILATERAL 3 OR MORE VIEWS OF EACH: 09/01/2024 12:15 PM CLINICAL INDICATION: Bilateral hand pain. COMPARISON: None. Procedure Note Mike Moya MD - 09/01/2024 XR HAND BILATERAL 3 OR MORE VIEWS OF EACH: 09/01/2024 12:15 PM CLINICAL INDICATION: Bilateral hand pain. COMPARISON: None. IMPRESSION: Alignment is anatomic. There is no fracture or erosive change. There is mild asymmetric soft tissue thickening around the 2nd and 3rd digit proximal phalanges of the left hand. There is no radiopaque foreign body. Electronically signed by: Mike Moya M.D. Yue Sanders NP IM XR PROCEDURES Final Resul t * XR Knee Right 3 Views (09/01/2024 12:00 PM CDT) Anatomical Region Laterality Modality Lower Extremities, Knee Right Computed Radiography 09/01/2024 12:2 7 PM CDT Impressions 09/01/2024 12:27 PM CDT Alignment is anatomic. No fracture or acute osseous abnormality. No knee joint effusion or abnormal soft tissue swelling. Electronically signed by: Mike Moya M.D. Narrative 09/01/2024 12:27 PM CDT XR KNEE LEFT 3 VIEWS, XR KNEE RIGHT 3 VIEWS: 09/01/2024 12:15 PM CLINICAL INDICATION: Bilateral knee pain. COMPARISON: None. Procedure Note Mike Moya MD - 09/01/2024 XR KNEE LEFT 3 VIEWS, XR KNEE RIGHT 3 VIEWS: 09/01/2024 12:15 PM CLINICAL INDICATION: Bilateral knee pain. COMPARISON: None. IMPRESSION: Alignment is anatomic. No fracture or acute osseous abnormality. No knee joint effusion or abnormal soft tissue swelling. Electronically signed by: Mike Moya M.D. Yue Sanders WORSHIP LEADER IMG XR PROCEDURES Final Resul t * XR Knee Left 3 Views (09/01/2024 12:00 PM CDT) Anatomical Region Laterality Modality Lower Extremities, Knee Left Computed Radiography 09/01/2024 12:2 7 PM CDT Impressions 09/01/2024 12:27 PM CDT Alignment is anatomic. No fracture or acute osseous abnormality. No knee joint effusion or abnormal soft tissue swelling. Electronically signed by: Mike Moya M.D. Narrative 09/01/2024 12:27 PM CDT XR KNEE LEFT 3 VIEWS, XR KNEE RIGHT 3 VIEWS: 09/01/2024 12:15 PM CLINICAL INDICATION: Bilateral knee pain. COMPARISON: None. Procedure Note Mike Moya MD - 09/01/2024 XR KNEE LEFT 3 VIEWS, XR KNEE RIGHT 3 VIEWS: 09/01/2024 12:15 PM CLINICAL INDICATION: Bilateral knee pain. COMPARISON: None. IMPRESSION: Alignment is anatomic. No fracture or acute osseous abnormality. No knee joint effusion or abnormal soft tissue swelling. Electronically signed by: Mike Gutovich, M.D. Yue Sanders WORSHIP LEADER IMG XR PROCEDURES Final Resul t * XR Shoulder Right 2 or More Views (09/01/2024 12:00 PM CDT) Anatomical Region Laterality Modality Upper Extremities, Shoulder Right Comp uted Radiography 09/01/2024 12:2 9 PM CDT Impressions 09/01/2024 12:29 PM CDT There is right worse than left acromioclavicular narrowing and degenerative change. Glenohumeral joint space is preserved bilaterally. There is no shoulder fracture or dislocation. The visualized lungs are clear. Electronically signed by: Mike Moya M.D. Narrative 09/01/2024 12:29 PM CDT XR SHOULDER RIGHT 2 OR MORE VIEWS, XR SHOULDER LEFT 2 OR MORE VIEWS: 09/01/2024 12:15 PM CLINICAL INDICATION: Bilateral shoulder pain. COMPARISON: Chest radiograph dated 06/25/2024. Procedure Note Mike Moya MD - 09/01/2024 XR SHOULDER RIGHT 2 OR MORE VIEWS, XR SHOULDER LEFT 2 OR MORE VIEWS: 09/01/2024 12:15 PM CLINICAL INDICATION: Bilateral shoulder pain. COMPARISON: Chest radiograph dated 06/25/2024. IMPRESSION: There is right worse than left acromioclavicular narrowing and degenerative change. Glenohumeral joint space is preserved bilaterally. There is no shoulder fracture or dislocation. The visualized lungs are clear. Electronically signed by: Mike Moya M.D. Yue Sanders WORSHIP LEADER IMG XR PROCEDURES Final Resul t * XR Shoulder Left 2 or More Views (09/01/2024 12:00 PM CDT) Anatomical Region Laterality Modality Upper Extremities, Shoulder Left Comp uted Radiography 09/01/2024 12:2 9 PM CDT Impressions 09/01/2024 12:29 PM CDT There is right worse than left acromioclavicular narrowing and degenerative change. Glenohumeral joint space is preserved bilaterally. There is no shoulder fracture or dislocation. The visualized lungs are clear. Electronically signed by: Mike Moya M.D. Narrative 09/01/2024 12:29 PM CDT XR SHOULDER RIGHT 2 OR MORE VIEWS, XR SHOULDER LEFT 2 OR MORE VIEWS: 09/01/2024 12:15 PM CLINICAL INDICATION: Bilateral shoulder pain. COMPARISON: Chest radiograph dated 06/25/2024. Procedure Note Mike Moya MD - 09/01/2024 XR SHOULDER RIGHT 2 OR MORE VIEWS, XR SHOULDER LEFT 2 OR MORE VIEWS: 09/01/2024 12:15 PM CLINICAL INDICATION: Bilateral shoulder pain. COMPARISON: Chest radiograph dated 06/25/2024. IMPRESSION: There is right worse than left acromioclavicular narrowing and degenerative change. Glenohumeral joint space is preserved bilaterally. There is no shoulder fracture or dislocation. The visualized lungs are clear. Electronically signed by: Mike Moya M.D. Yue Sanders WORSHIP LEADER IMG XR PROCEDURES Final Resul t * XR Spine Cervical 2 or 3 Views (09/01/2024 12:00 PM CDT) Anatomical Region Laterality Modality Spine N/A Computed Radiogr aphy 09/01/2024 12:2 6 PM CDT Impressions 09/01/2024 12:26 PM CDT There is straightening of normal cervical lordosis. There is mild to moderate loss of disc space height at C4-C5. There is a prominent disc osteophyte anteriorly at this level. There is mild facet and uncovertebral joint degenerative change at multiple levels. There is no compression deformity along the course of the cervical spine. The prevertebral soft tissues are normal. The visualized upper lungs are clear. Electronically signed by: Mike Moya M.D. Narrative 09/01/2024 12:26 PM CDT XR SPINE CERVICAL 2 OR 3 VIEWS: 09/01/2024 12:15 PM CLINICAL INDICATION: Back pain. COMPARISON: None. Procedure Note Mike Moya MD - 09/01/2024 XR SPINE CERVICAL 2 OR 3 VIEWS: 09/01/2024 12:15 PM CLINICAL INDICATION: Back pain. COMPARISON: None. IMPRESSION: There is straightening of normal cervical lordosis. There is mild to moderate loss of disc space height at C4-C5. There is a prominent disc osteophyte anteriorly at this level. There is mild facet and uncovertebral joint degenerative change at multiple levels. There is no compression deformity along the course of the cervical spine. The prevertebral soft tissues are normal. The visualized upper lungs are clear. Electronically signed by: Mike Moya M.D. us Yue Sanders WORSHIP LEADER IMG XR PROCEDURES Final Resul t from Last 3 Months Insurance [employer] CHO[employer] Advance Directives For more information, please contact: [phone] * Full Code (Latest Code Status on File) Date Activated Date Inactivated Comments 06/25/2024 3:00 AM 06/30/2024 6:30 PM Care Teams Auger Press Operator Relationship Specialty Start Date End Date No, Physician PCP - General 12/25/23
--- OUTSIDE RECORDS SUMMARY | 2024-11-07 17:27 | XMS_ITS | Clinical Summary ---
Author Organization [facility] Address [address] [place] [address] Care Team Providers Care Cutter Barrel Drum Name Role Phone No, Physician Primary Care Provider [phone] Allergies Active Allergy Reactions Criticality Noted Date Comments Hydromorphone Nausea only Low 06/24/2024 Medications ondansetron ODT (ZOFRAN-ODT) 4 mg disintegrating tablet Take 1 tablet (4 mg total) by mouth every 8 (eight) hours as needed for nausea or vomiting 20 tablet Active simethicone (MYLICON) 125 mg chewable tablet Take 1 tablet (125 mg total) by mouth every 6 (six) hours as needed for flatulence Active loratadine (CLARITIN) 10 mg tablet Take 1 tablet (10 mg total) by mouth daily Active omega 7-tqb-zyi-fish oil 100-160-1,000 mg capsule Take 1,000 mg [...] Diarrhea 06/28/2024 Abdominal pain 06/28/2024 Colitis 06/25/2024 Encounters Date Type Department Care Team Description 09/01/2024 11:19 AM CDT - 09/01/2024 11:59 PM CDT Hospital Encounter [facility] - Imaging [facility] [place] [address] Osteoarthritis, unspecified osteoarthritis type, unspecified site; Arthralgia, unspecified joint; Smokes 1/2 pack per day Discharge Disposition: Discharge to home or self care 09/01/2024 10:00 AM CDT Office Visit [facility] Rheumatology at [address] [place] [address] Yue Sanders NP Osteoarthritis, unspecified osteoarthritis type, unspecified site (Primary Dx); Arthralgia, unspecified joint; Smokes 1/2 pack per day 08/22/2024 Telephone [facility] Rheumatology at [address] [place] [address] Patricia Gillis External Referral from Last 3 Months Medical History Medical History Date Comments Diverticulitis Family History Relation Name Status Comments Father Mother Alive Social History Tobacco Use Types Packs/Day Years Used Date Smoking Tobacco: Every Day Cigarettes Tobacco Cessation:Ready to Q uit: Not Asked; Counseling Given: Not Answered [facility] Utilities Answer Date Recorded In the past 12 months has th e electric, gas, oil, or water company threatened to shut [...] often do you attend chur ch or denominational services? 1 to 4 times per year 06/28/2024 Do you belong to any clubs o r organizations such as tenriism groups, unions, fraternal or athletic groups, or [...] any time in the past 12 m [facility], were you homeless or living in a group home (including now)? No 06/28/2024 Personal Safety Answer Date Recorded Have you ever been in or are you currently in a harmful physical or emotional relationship or is someone making you feel afraid or unsafe? Denies 06/25/2024 Comments No Sex and Gender Information Value Date Recorded Sex Assigned at Not on file Legal Sex Female 5:56 PM DAY PORTER Gender Identity Not on file Sexual Orientation [...] 09/01/2024 9:56 AM CDT Plan of Treatment Health Maintenance Due Date Last Done Comments Breast Cancer Screening-Mammogram 1972 Colon Cancer Screening-Colonoscopy 1972 Depression Screening 1972 Hepatitis C Screening 1972 Hepatitis B Screening 02/27/1990 Regular Well Visit/Exam 18-64 02/27/1990 Pneumococcal vaccine <65 (1 of 2 - PCV) 02/27/1991 Zoster Vaccine (1 of 2) 02/27/2022 Influenza Vaccine (Season Ended) 2025 04/21/2022, 03/26/2021, 02/18/2018 DTaP/Tdap/Td Vaccine (2 - Td or Tdap) 11/13/202910/2019, 08/18/2007 Procedures Procedure Name Priority Date/Time Associated Diagnosis [...] body. Electronically signed by: Mike Moya M.D. us Yue Sanders PAYROLL CLERK IMG XR PROCEDURES Final Resul t * [...] signed by: Mike Moya M.D. Yue Sanders PAYROLL CLERK IMG XR PROCEDURES Final Resul t * [...] by: Mike Moya M.D. Yue Sanders NP [facility] XR PROCEDURES Final Resul t * XR [...] signed by: Mike Moya M.D. Yue Sanders PAYROLL CLERK IMG XR PROCEDURES Final Resul t * [...] signed by: Mike Moya M.D. Yue Sanders PAYROLL CLERK IMG XR PROCEDURES Final Resul t * [...] NP IMG XR PROCEDURES Final Resul t from Last 3 Months Insurance [employer] CHOICE ANTHEM ACCESS CHOICE Advance Directives For more information, please contact: [phone] * Full Code (Latest Code Status on File) Date Activated Date Inactivated Comments 06/25/2024 3:00 AM 06/30/2024 6:30 PM Care Teams Cutter Barrel Drum Relationship Specialty Start Date End Date No, Physician PCP - General 12/25/23
== END 2024-11-07 17:26 | disposition home or self-care (01) ==
LOC: ANHLAB 17:26
PROVIDERS: PCP Nurse Practitioner Family; Visit Provider Nurse Practitioner
DX: K52.9 Noninfective gastroenteritis and colitis, unspecified (principal)
CPT/HCPCS: 83993

== ENCOUNTER 2024-11-23 08:49 | Outpatient (CLI) | payer BC, SELFPAY ==
--- NOTE | ~2024-11-23 | MM_ITS ---
EXAMINATION: MM screening vianca BI w hemalatha HISTORY: Screening TECHNIQUE: Craniocaudal and mediolateral oblique 3-D tomosynthesis images were obtained and synthetic 2-D images were generated. CAD analysis was submitted and interpreted. COMPARISON: Comparison to multiple prior studies sequentially, with oldest reviewed study dated 05/23. BREAST PARENCHYMAL COMPOSITION: Not dense: There are scattered areas of fibroglandular density. FINDINGS: There is no evidence of suspicious mass, calcification, or architectural distortion to sugg est malignancy in either breast. There has been no suspicious interval change. IMPRESSION: 1. No mammographic evidence of malignancy. 2. Recommend routine screening mammography in one year. BI-RADS Category 1: Negative Reviewed, dictated and finalized at location B.
--- OUTSIDE RECORDS SUMMARY | 2024-11-23 09:01 | XMS_ITS | Referral Summary ---
Author Organization [facility] Address [address] [place] [address] Care Team Providers Care Transcription Name Role Phone Alley Vegas INDUSTRIAL TRUCK OPERATOR Primary Care Provider [phone] Encounters Date Type Department Care Team Description 11/17/2024 Telephone [facility] Rheumatology at [address], [place] [address] Yue Sanders NP Xray Results 08/202409/01/2024 11:19 AM CDT - 09/01/2024 11:59 PM CDT Hospital Encounter [facility] - Imaging [address] [place] [phone] Osteoarthritis, unspecified osteoarthritis type, unspecified site; Arthralgia, unspecified joint; Smokes 1/2 pack per day Discharge Disposition: Discharge to home or self care 09/01/2024 10:00 AM CDT Office Visit [facility] Rheumatology at [place] [id number] [facility] [address], [place] [phone] Yue Sanders NP Osteoarthritis, unspecified osteoarthritis type, unspecified site (Primary Dx); Arthralgia, unspecified joint; Smokes 1/2 pack per day from Last 3 Months Allergies Active Allergy [...] mg total) by mouth daily Active omega 2-lok-uoq-fish oil 100-160-1,000 mg capsule Take 1,000 mg [...] uit: Not Asked; Counseling Given: Not Answered [facility] Utilities Answer Date Recorded In the [...] often do you attend chur ch or buddhist services? 1 to 4 times per year 06/28/2024 Do you belong to any clubs o r organizations such as jainism groups, unions, fraternal or athletic groups, or [...] any time in the past 12 m [facility], were you homeless or living in a m[facility] (including now)? No 06/28/2024 Personal Safety Answer Date Recorded Have you ever been in or are you currently in a harmful physical or emotional relationship or is someone making you feel afraid or unsafe? Denies 06/25/2024 Comments No Sex and Gender Information Value Date Recorded Sex Assigned at Not on file Legal Sex Female 5:56 PM GLUE MOUNTER OPERATOR Gender Identity Not on file Sexual [...] by: Mike Moya M.D. Yue Sanders NP [facility] XR PROCEDURES Final Resul t * XR [...] signed by: Mike Moya M.D. Yue Sanders INDUSTRIAL TRUCK OPERATOR IMG XR PROCEDURES Final Resul t * [...] signed by: Mike Moya M.D. Yue Sanders INDUSTRIAL TRUCK OPERATOR IMG XR PROCEDURES Final Resul t * [...] by: Mike Moya M.D. us Yue Sanders INDUSTRIAL TRUCK OPERATOR IMG XR PROCEDURES Final Resul t * [...] by: Mike Moya M.D. us Yue Sanders INDUSTRIAL TRUCK OPERATOR IMG XR PROCEDURES Final Resul t from Last 3 Months Insurance [employer] CHOICE Advance Directives For more information, please contact: [phone] * Full Code (Latest Code Status on File) Date Activated Date Inactivated Comments 06/25/2024 3:00 AM 06/30/2024 6:30 PM Care Teams Transcription Relationship Specialty Start Date End Date WinterAlley NP [address] [place] [address] PCP - General Nurse Practitioner 11/17/24
--- OUTSIDE RECORDS SUMMARY | 2024-11-23 09:01 | XMS_ITS | Clinical Summary ---
Author Organization [facility] Address [address] [place] [address] Care Team Providers Care Roll Operator Name Role Phone Alley Vegas JOINTER SUBMARINE CABLE Primary Care Provider [phone] Allergies Active Allergy Reactions Criticality Noted Date [...] mg total) by mouth daily Active omega 4-aow-cis-fish oil 100-160-1,000 mg capsule Take 1,000 mg [...] Type Department Care Team Description 11/17/2024 Telephone [facility] Rheumatology at [address], [place] [phone] Yue Sanders NP Xray Results 08/202409/01/2024 11:19 AM CDT - 09/01/2024 11:59 PM CDT Hospital Encounter [facility] - Imaging [address] [place] [phone] Osteoarthritis, unspecified osteoarthritis type, unspecified site; Arthralgia, unspecified joint; Smokes 1/2 pack per day Discharge Disposition: Discharge to home or self care 09/01/2024 10:00 AM CDT Office Visit [facility] Rheumatology at [address], [place] [phone] Yue Sanders NP Osteoarthritis, unspecified osteoarthritis type, unspecified site (Primary Dx); Arthralgia, unspecified joint; Smokes 1/2 pack per day from Last 3 Months Medical History Medical History Date Comments Diverticulitis Family History Relation Name Status Comments Father Mother Alive Social History Tobacco Use Types Packs/Day Years Used Date Smoking Tobacco: Every Day Cigarettes Tobacco Cessation:Ready to Q uit: Not Asked; Counseling Given: Not Answered [facility] Utilities Answer Date Recorded In the past [...] often do you attend chur ch or yazdanism services? 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 us Yue Sanders NP IMG XR PROCEDURES Final [...] signed by: Mike Moya M.D. Yue Sanders JOINTER SUBMARINE CABLE IMG XR PROCEDURES Final Resul t * [...] signed by: Mike Moya M.D. Yue Sanders JOINTER SUBMARINE CABLE IMG XR PROCEDURES Final Resul t * [...] signed by: Mike Moya M.D. Yue Sanders JOINTER SUBMARINE CABLE IMG XR PROCEDURES Final Resul t * [...] signed by: Mike Moya M.D. Yue Sanders JOINTER SUBMARINE CABLE IMG XR PROCEDURES Final Resul t from Last 3 Months Insurance [employer] ACCESS CHOICE [employer] ACCESS CHOICE Advance Directives For more information, please contact: [phone] * Full Code (Latest Code Status on File) Date Activated Date Inactivated Comments 06/25/2024 3:00 AM 06/30/2024 6:30 PM Care Teams Roll Operator Relationship Specialty Start Date End Date Alley Vegas NP [address] [place], [place] [id number] PCP - General Nurse Practitioner 11/17/24
== END 2024-11-23 08:50 | disposition home or self-care (01) ==
LOC: ANHIMG 08:52
PROVIDERS: PCP Nurse Practitioner Family; Visit Provider Nurse Practitioner Family
DX: Z12.31 Encounter for screening mammogram for malignant neoplasm of breast (principal)
CPT/HCPCS: 77063; 77067

== ENCOUNTER 2025-01-06 09:27 | Outpatient (CLI) | payer BC, SELFPAY ==
--- OUTSIDE RECORDS SUMMARY | 2025-01-06 09:33 | XMS_ITS | Clinical Summary ---
Author Organization [facility] Address [address] [place] [address] Care Team Providers Care Table Worker Name Role Phone Alley Vegas SEWAGE PLANT SUPERVISOR Primary Care Provider [phone] Allergies Active Allergy Reactions Criticality Noted Date [...] mg total) by mouth daily Active omega 9-tbb-ren-fish oil 100-160-1,000 mg capsule Take 1,000 mg [...] Type Department Care Team Description 11/17/2024 Telephone [facility] Rheumatology at [address] [place] [address] Yue Sanders NP Xray Results 08/2024 from Last 3 Months Medical History Medical History Date Comments Diverticulitis Family History Relation Name Status Comments Father Mother Alive Social History Tobacco Use Types Packs/Day Years Used Date Smoking Tobacco: Every Day Cigarettes Tobacco Cessation:Ready to Q uit: Not Asked; Counseling Given: Not Answered [facility] Utilities Answer Date Recorded In the past 12 months has [employer], [facility], oil, or water [employer] threatened to shut off services in your home? No 06/28/2024 Social Connection and Isolation Panel Answer Date Recorded In a typical week, how many times do you talk on the phone with family, friends, or neighbors? More than three times a week 06/28/2024 How often do you get togethe r with friends or relatives? More than three times a week 06/28/2024 How often do you attend [facility] or tenriism services? 1 to 4 times per year 06/28/2024 Do you belong to any clubs o r organizations such as baptist groups, unions, fraternal or athletic groups, or [...] any time in the past 12 m [facility], were you homeless or living in a assisted (including now)? No 06/28/2024 Personal Safety Answer Date Recorded Have you ever been in or are you currently in a harmful physical or emotional relationship or is someone making you feel afraid or unsafe? Denies 06/25/2024 Comments No Sex and Gender Information Value Date Recorded Sex Assigned at Not on file Legal Sex Female 5:56 PM JOURNAL CLERK Gender Identity Not on file Sexual Orientation [...] of 2) 02/27/2022 Influenza Vaccine (#1) 2025 , 03/26/2021, 02/18/2018 DTaP/Tdap/Td Vaccine (2 - Td or Tdap) 11/13/202910/2019, 08/18/2007 Insurance [employer] CHOICE ANTHEM ACCESS CHOICE Advance Directives For more information, please contact: [phone] * Full Code (Latest Code Status on File) Date Activated Date Inactivated Comments 06/25/2024 3:00 AM 06/30/2024 6:30 PM Care Teams Table Worker Relationship Specialty Start Date End Date Alley Vegas NP [address] [place] [address] PCP - General Nurse Practitioner 11/17/24
[2025-01-06 10:24] LABS: Anion Gap 9 mmol/L (4-12); Blood Urea Nitrogen 19 mg/dL (7-17); Calcium 10.1 mg/dL (8.4-10.2); Carbon Dioxide 24 mmol/L (22-30); Chloride 103 mmol/L (98-107); Estimated Glomerular Filt Rate > 60; Glucose 127 mg/dL (65-110); Potassium 4.0 mmol/L (3.4-5.0); Sodium 136 mmol/L (137-145)
== END 2025-01-06 09:28 | disposition home or self-care (01) ==
LOC: ANHSURGERY 09:30
PROVIDERS: Anesthesiology; PCP Nurse Practitioner Family; Visit Provider Urology
DX: Z79.899 Other long term (current) drug therapy (principal)
CPT/HCPCS: 36415; 80048

== ENCOUNTER 2025-01-13 02:54 | Day surgery (SDC) | payer BC, SELFPAY ==
[2025-01-04 13:45] VITALS: BMI 28.4
--- NOTE | 2025-01-04 13:55 | PC.NURSE ---
Report to the Outpatient Waiting Room, entrance under the green pavilion located off [facility], at time _0800_ on date _[id number]_. Planned Procedure Time: _1000_.? Time changes happen often and if your time is changed the preop area will call you the afternoon before. - You and your visitor will be asked to self-screen and do not enter if you have any COVID symptoms. Please call surgeon if you need to reschedule. - A mask is optional within the hospital at this time. Patients may have clear liquids (water, carbonated beverages, clear teas, apple juice) until 3 hours prior to surgery with a maximum of 20 ounces. - No food from midnight until time of surgery and no smoking, or chewing tobacco (or any form of nicotine). No chewing gum, candy or mints. Take only the following medications with a SIP of water on the morning of surgery: __Metoprolol and Duloxetine____ DO NOT STOP ANY OF YOUR OTHER PRESCRIPTION MEDICATIONS PRIOR TO SURGERY EXCEPT THE FOLLOWING Hold all vitamins and supplements for 3 days per anesthesiologist. Medications to discontinue per physician Date to take last bfck___[phone]____ Please no make-up, nail taiwanese, hairspray, perfume, deodorant, or body powder the day of surgery.? No jewelry (including any body piercings) or valuables the day of surgery, leave them at home.? Please take a shower or bath the night before, or the morning of, surgery with an antibacterial soap.? Wear comfortable, loose fitting clothing.? - Jewelry must be removed prior to entering the operating room.? Rings and piercings that are not removed may be cut off. - The hospital will not accept responsibility for valuables.? - Please leave all valuables, including medications, at home the day of surgery. If you are going home after surgery, a licensed roll off driver must drive you home.? - NO public transportation without another adult if you receive anesthesia. - We recommend that an adult stay with you for 24 hours following discharge. - We also recommend that you do not drive, make important decision, drink alcoholic beverages, or take any drugs that were not prescribed by your health care provider for at least 24 hours after your discharge time. Follow any additional instructions given to you from your surgeon. Telephone instructions given to __Tina___and asked if any additional questions and then verbalized understanding. Patient advised to call surgeon office or pre surgery nurse liaison [phone] if any additional questions.
--- NOTE | 2025-01-07 13:27 | PM.IMHP ---
H&P: HPI History of Present Illness Date/Time: 01/07/25 13:27 Chief Complaint: Mixed UI Narrative: desires treatment of TRE Review of Systems Review of Systems: All systems reviewed & are unremarkable except as noted in HPI and below PMFSH Past Medical History Medical History Obesity Irritable bowel syndrome with diarrhea Acute diverticulitis of intestine Diverticulitis of sigmoid colon Bilateral hand pain History of chemotherapy Inflammatory arthritis (~2018) Anxiety Chronic back pain Arthritis Kidney stones Polycystic ovarian disease GERD (gastroesophageal reflux disease) IBS (irritable bowel syndrome) Hypertension Bronchitis Seasonal allergies Strain of right gastrocnemius muscle (~02/2019) Surgical History Surgical History H/O ovarian cystectomy H/O dilation and curettage History of hysterectomy History of cholecystectomy Family History Family History Mother Patient's mother is in good health Family history of cardiovascular disease Family history of arthritis Family history of atrial fibrillation Breast cancer Hypertension Father Patient's father is in good health Family history of lymphoma Hypertension Family history of cardiovascular disease Acute myocardial infarction Family history of arthritis Grandparent Carcinoma of colon Hypertension Depression Anxiety Heart problem Cerebrovascular accident Disorder of thyroid Social History Social History Smoking packs per day: 1 Smoking cigarettes per day: 20.0 Years smoked: 25 Smoking pack-years: 25.00 Smoking status: Current every day smoker Tobacco type: cigarettes Second hand tobacco smoke exposure: Yes Additional smoking assessment comments: On chantix and trying to quit. Alcohol intake: current Alcohol use details: Social Substance use: never Substance use type: does not use Do You Feel Safe in your Home?: Yes Lack of Transportation: No Lack of Food: Never True Current Housing: I Have Housing Concerned About Future Housing: No Difficulty Paying Gas/Electric Bills: No Difficulty Paying for Meds: No Currently Unemployed: No Education: Associate Degree Difficulty w/ Childcare or Family Care: No Living arrangements: with family Occupation/Education: unemployed Gender identity (if verbalized by the patient): Female Sexual Orientation (if Verbalized by the Patient): Straight or Heterosexual Spiritual care concerns: No Agree to blood products: Yes Meds Home Medications and Allergies Home Medications ?Medication ?Instructions ?Recorded ?Confirmed ?Type multivitamin (Daily Vitamin 1 tablet PO DAILY 06/17/19 01/04/25 History Formula tablet) simethicone 125 mg capsule (Gas 125 mg PO DAILY PRN Pain 11/01/21 01/04/25 History Relief (simethicone)) loratadine 10 mg tablet (Claritin) 10 mg PO DAILY 12/13/21 01/04/25 History omega 5-tod-off-fish oil 100 1 cap PO DAILY 01/31/22 01/04/25 History mg-160 mg-1,000 mg capsule (Fish Oil) vitamin B complex 1 tablet PO DAILY 09/03/23 01/04/25 History albuterol sulfate 90 mcg/actuation 2 inh inhalation Q4H PRN shortness 02/08/24 01/04/25 Rx aerosol inhaler of breath or wheezing #8.5 grams gabapentin 300 mg capsule 300 mg PO QHS #90 caps 02/08/24 01/04/25 Rx ondansetron 4 mg disintegrating 4 mg PO Q8H PRN nausea and 06/15/24 01/04/25 Rx tablet vomiting #14 tabs hyoscyamine sulfate 0.125 mg 0.125 mg PO QID #120 tabs 07/07/24 01/04/25 Rx sublingual tablet (Levsin/SL) potassium chloride 20 mEq See Rx Instructions .Route 07/12/24 01/04/25 Rx tablet,extended release .COMPLEX #90 tabs metoprolol succinate 25 mg See Rx Instructions .Route 10/21/24 01/04/25 Rx tablet,extended release 24 hr .COMPLEX #90 tabs meloxicam 7.5 mg tablet 7.5 mg PO BID #180 tabs 11/30/24 01/04/25 Rx spironolactone 25 mg tablet 25 mg PO DAILY #30 tabs 11/30/24 01/04/25 Rx varenicline tartrate 0.5 mg (11)-1 See Rx Instructions PO PER PKG DIR 11/30/24 01/04/25 Rx mg (42) tablets in a dose pack #53 ea (Chantix Starting Month Box) lisinopril 20 1 tablet PO DAILY #90 tabs 12/12/24 01/04/25 Rx mg-hydrochlorothiazide 25 mg tablet dicyclomine 20 mg tablet See Rx Instructions .Route 12/19/24 01/04/25 Rx .COMPLEX #60 tabs duloxetine 60 mg capsule,delayed See Rx Instructions .Route 12/19/24 01/04/25 Rx release .COMPLEX #90 ea omeprazole 40 mg capsule,delayed 40 mg PO DAILY #90 caps 12/19/24 01/04/25 Rx release rosuvastatin 5 mg tablet See Rx Instructions .Route 12/19/24 01/04/25 Rx .COMPLEX #90 tabs Allergies Allergy/AdvReac Type Severity Reaction Status Date / Time No Known Allergies Allergy Verified 01/04/25 13:41 Exam Narrative: + urethral molbility Assessment and Plan Assessment and plan (1) TRE (stress urinary incontinence, female): Code(s): N39.3 - Stress incontinence (female) (male) Status: Acute Assessment and Plan: urethral sling Plan tre
--- OUTSIDE RECORDS SUMMARY | 2025-01-13 02:57 | XMS_ITS | Clinical Summary ---
Author Organization [facility] Address [address] [place] [address] Care Team Providers Care Furniture Repairer Name Role Phone Alley Vegas COUNT ROOM CLERK Primary Care Provider [phone] Allergies Active Allergy Reactions Criticality Noted Date [...] mg total) by mouth daily Active omega 3-btr-mgg-fish oil 100-160-1,000 mg capsule Take 1,000 mg [...] Type Department Care Team Description 11/17/2024 Telephone [facility] Rheumatology at [address] [place] [address] Yue Sanders NP Xray Results 08/2024 from Last 3 Months Medical History Medical History Date Comments Diverticulitis Family History Relation Name Status Comments Father Mother Alive Social History Tobacco Use Types Packs/Day Years Used Date Smoking Tobacco: Every Day Cigarettes Tobacco Cessation:Ready to Q uit: Not Asked; Counseling Given: Not Answered [facility] Utilities Answer Date Recorded In the past 12 months has [employer], [employer]), oil, or water [employer] threatened to shut off services in your [...] week 06/28/2024 How often do you attend [facility] or buddhism services? 1 to 4 times per year 06/28/2024 Do you belong to any clubs o r organizations such as yarsanism groups, unions, fraternal or athletic groups, or [...] any time in the past 12 m [facility], were you homeless or living in a prison (including now)? No 06/28/2024 Personal Safety Answer Date Recorded Have you ever been in or are you currently in a harmful physical or emotional relationship or is someone making you feel afraid or unsafe? Denies 06/25/2024 Comments No Sex and Gender Information Value Date Recorded Sex Assigned at Not on file Legal Sex Female 5:56 PM DIRECTOR OF PROMOTIONS Gender Identity Not on file Sexual Orientation [...] - Td or Tdap) 11/13/202910/2019, 08/18/2007 Insurance [employer] CHOICE ANTHEM ACCESS CHOICE Advance Directives For more information, please contact: [phone] * Full Code (Latest Code Status on File) Date Activated Date Inactivated Comments 06/25/2024 3:00 AM 06/30/2024 6:30 PM Care Teams Furniture Repairer Relationship Specialty Start Date End Date Alley Vegas NP [address] [place] [address] PCP - General Nurse Practitioner 11/17/24
--- NOTE | 2025-01-13 07:15 | WPDHPUPDATE1 ---
History and Physical Update Update Date/Time: 01/13/25 07:15 History and Physical has been reviewed, including an updated exam of the patient. There are NO changes in the patient's condition. Risks, benefits, and alternatives have been discussed and questions answered. Patient agrees to proceed with procedure.
[2025-01-13 08:15] VITALS: BP 124/88; PULSE 126; RESP 16; TEMP 36.6; O2SAT 99
[2025-01-13] MEDS: LACTATED RINGERS 1,000 ML 30 ML IV CONT (08:35)
--- NOTE | 2025-01-13 09:03 | WPDANESEPPF ---
Anes - Initial Pre Proc Eval Procedure: Operation Date: 01/13/25 10:00 Proposed Procedures p Urethral Sling - Marck Bender MD Date/Time: 01/13/25 09:03 Surgeon: Marck Bender MD Pre Op Diagnosis: stress incont Patient Data Age: 54 Gender: F Height: 1.57 m Weight: 70.4 kg Last Vital Signs Temp 36.6 C 01/13/25 08:15 Pulse 126 H 01/13/25 08:15 Resp 16 01/13/25 08:15 BP 124/88 01/13/25 08:15 Pulse Ox 99 01/13/25 08:15 O2 Del Method Room Air 01/13/25 08:15 Allergies Allergy/AdvReac Type Severity Reaction Status Date / Time No Known Allergies Allergy Verified 01/11/25 13:55 Home Medications ?Medication ?Instructions ?Recorded ?Confirmed ?Type multivitamin (Daily Vitamin 1 tablet PO DAILY 06/17/19 01/11/25 History Formula tablet) simethicone 125 mg capsule (Gas 125 mg PO DAILY PRN Pain 11/01/21 01/11/25 History Relief (simethicone)) loratadine 10 mg tablet (Claritin) 10 mg PO DAILY 12/13/21 01/11/25 History omega 6-bnw-tgr-fish oil 100 1 cap PO DAILY 01/31/22 01/11/25 History mg-160 mg-1,000 mg capsule (Fish Oil) vitamin B complex 1 tablet PO DAILY 09/03/23 01/11/25 History albuterol sulfate 90 mcg/actuation 2 inh inhalation Q4H PRN shortness 02/08/24 01/11/25 Rx aerosol inhaler of breath or wheezing #8.5 grams ondansetron 4 mg disintegrating 4 mg PO Q8H PRN nausea and 06/15/24 01/11/25 Rx tablet vomiting #14 tabs potassium chloride 20 mEq See Rx Instructions .Route 07/12/24 01/11/25 Rx tablet,extended release .COMPLEX #90 tabs metoprolol succinate 25 mg See Rx Instructions .Route 10/21/24 01/11/25 Rx tablet,extended release 24 hr .COMPLEX #90 tabs meloxicam 7.5 mg tablet 7.5 mg PO BID #180 tabs 11/30/24 01/11/25 Rx varenicline tartrate 0.5 mg (11)-1 See Rx Instructions PO PER PKG DIR 11/30/24 01/11/25 Rx mg (42) tablets in a dose pack #53 ea (Chantix Starting Month Box) lisinopril 20 1 tablet PO DAILY #90 tabs 12/12/24 01/11/25 Rx mg-hydrochlorothiazide 25 mg tablet dicyclomine 20 mg tablet See Rx Instructions .Route 12/19/24 01/11/25 Rx .COMPLEX #60 tabs duloxetine 60 mg capsule,delayed See Rx Instructions .Route 12/19/24 01/11/25 Rx release .COMPLEX #90 ea omeprazole 40 mg capsule,delayed 40 mg PO DAILY #90 caps 12/19/24 01/11/25 Rx release rosuvastatin 5 mg tablet See Rx Instructions .Route 12/19/24 01/11/25 Rx .COMPLEX #90 tabs gabapentin 300 mg capsule 300 mg PO QHS #90 caps 01/11/25 01/11/25 Rx hydroxyzine HCl 50 mg tablet 50 mg PO BID PRN anxiety #60 tabs 01/11/25 01/11/25 Rx spironolactone 25 mg tablet 25 mg PO DAILY #90 tabs 01/11/25 01/11/25 Rx sumatriptan succinate 50 mg tablet See Rx Instructions PO .COMPLEX 01/11/25 01/11/25 Rx #14 tabs Patient hx anesthesia problems: none Family hx anesthesia problems: none Results Review: All pre-operative results and documents have been reviewed as part of the pre-operative evaluation. [facility] Past Medical History Medical History Obesity Irritable bowel syndrome with diarrhea Acute diverticulitis of intestine Diverticulitis of sigmoid colon Bilateral hand pain History of chemotherapy Inflammatory arthritis (~2018) Anxiety Chronic back pain Arthritis Kidney stones Polycystic ovarian disease GERD (gastroesophageal reflux disease) IBS (irritable bowel syndrome) Hypertension Bronchitis Seasonal allergies Strain of right gastrocnemius muscle (~02/2019) Surgical History Surgical History H/O ovarian cystectomy H/O dilation and curettage History of hysterectomy History of cholecystectomy Family History Family History Mother Patient's mother is in good health Family history of cardiovascular disease Family history of arthritis Family history of atrial fibrillation Breast cancer Hypertension Father Patient's father is in good health Family history of lymphoma Hypertension Family history of cardiovascular disease Acute myocardial infarction Family history of arthritis Grandparent Carcinoma of colon Hypertension Depression Anxiety Heart problem Cerebrovascular accident Disorder of thyroid Social History Social History Smoking packs per day: 0.5 Smoking cigarettes per day: 10.0 Years smoked: 30 Smoking pack-years: 15.00 Smoking status: Current every day smoker Tobacco type: cigarettes Second hand tobacco smoke exposure: Yes Additional smoking assessment comments: On chantix and trying to quit. Alcohol intake: former Alcohol use details: Social Substance use: never Substance use type: does not use Do You Feel Safe in your Home?: Yes Lack of Transportation: No Lack of Food: Never True Current Housing: I Have Housing Concerned About Future Housing: No Difficulty Paying Gas/Electric Bills: No Difficulty Paying for Meds: No Currently Unemployed: No Education: Associate Degree Difficulty w/ Childcare or Family Care: No Living arrangements: with family Occupation/Education: unemployed Gender identity (if verbalized by the patient): Female Sexual Orientation (if Verbalized by the Patient): Straight or Heterosexual Spiritual care concerns: No Agree to blood products: Yes Anes - Eval Final PreProcedure Day of Procedure 01/13/25 09:03 Patient weight: overweight Heart: regular rate and rhythm Lungs: clear to auscultation Airway: Mallampati scale class II Neurological: alert and oriented Last oral intake: >/= 8 hours ASA classification: III Emergent: no Anesthetic plan: proceed Anesthesia type and monitoring: general GIVS and standard monitoring Results Review: All pre-operative results and documents have been reviewed as part of the pre-operative evaluation. Informed Consent: The patient's anesthetic plan and its attendant risks and benefits were discussed with the patient/family/POA. Questions were solicited and answers provided to the satisfaction of the patient/family/POA.
[2025-01-13] MEDS: ceFAZolin 2 GM in SODIUM CHLORIDE 0.9% IV 50 ML 100 ML IVPB (09:55)
[2025-01-13] MEDS: BUPIVACAINE/EPINEPHRINE 0.5% 50 ML VIAL 30 ML INFILTRATE (10:05)
[2025-01-13 10:26] VITALS: BP 124/73; PULSE 119; RESP 14; O2SAT 98
[2025-01-13 10:55] VITALS: BP 98/64; PULSE 112; RESP 14; O2SAT 97
--- NOTE | 2025-01-13 10:58 | W.PM.PROC2 ---
Procedure Note - Detailed Date of Procedure 01/13/25 Pre-op Diagnosis stress incont Post-op Diagnosis Same Procedure Performed mid urethral sling cystoscopy Surgeon Marck Bender MD Anesthesia MAC and Local Indications This is a female with confirm stress urinary incontinence. She desires surgical correction. She understands the risks of bleeding, infection, injury to the urinary tract, vaginal mesh extrusion, urinary tract mesh erosion, obstructive voiding requiring a secondary procedure, hip and leg pain, dyspareunia, inability to improve overactive bladder symptoms. She agrees to proceed. Description of Procedure She was correctly identified. Informed consent obtained. She was brought the operating room. She was given appropriate anesthesia. She was given appropriate perioperative antibiotics. A time-out performed. I marked out the site of the inner thigh incisions. I anesthetized the skin and made those incisions. I anesthetized the anterior vaginal wall over the mid urethra. I made a 1 cm incision. I dissected out laterally taking great care not to injure the refilled vaginal wall. I passed the helical trocars. First on the left. Then on the right. I did this from the thigh incision towards the vaginal incision. The sling was connected to the trocars and brought out through the thigh incision. I tensioned the sling appropriately. I cut and the plastic sheaths. I then closed the incision with 2 0 Vicryl. On cystoscopy there is no tumors or surgical artifact. There was no surgical artifact in the urethra. I cut the excess sling material. Close incisions with glue. She was awakened and transferred to the PACU in stable condition. Implants Urethral sling Estimated Blood Loss 20 Drains No Packing No Pathology None sent Complications No immediate complications Condition Stable Disposition PACU
[2025-01-13] MEDS: oxyCODONE HCL (*CRX) 5 MG TAB IR PO (11:28)
[2025-01-13 11:35] VITALS: BP 146/85; PULSE 104; RESP 14
== END 2025-01-13 12:03 | disposition home or self-care (01) ==
PROVIDERS: PCP Nurse Practitioner Family; Visit Provider Urology
PROC: (CPT 57288; principal; 2025-01-13 10:00)
DX: N39.3 Stress incontinence (female) (male) (principal); F17.210 Nicotine dependence, cigarettes, uncomplicated
CPT/HCPCS: 57288; J0690; A9270; C1771; J2003; J2250; J2704; J3010; J7030; J7120

== ENCOUNTER 2025-02-02 16:27 | Outpatient (CLI) | payer BC, SELFPAY ==
[2025-02-02 16:55] LABS: Hematocrit 42.5 % (37.0-47.0); Hemoglobin 14.4 g/dL (12.0-15.0); Immature Granulocyte Percent A 0.3 % (0-0.5); Lymphocytes Absolute Auto 2.87 K/mm3 (0.9-3.2); Mean Corpuscular HGB Conc 33.9 g/dl (32-36); Mean Corpuscular Hemoglobin 30.5 pg (26-34); Mean Corpuscular Volume 90.0 fl (80-100); Nucleated Red Blood Cells Absolute Auto 0.000 K/mm3 (0.0-0.012); Nucleated Red Blood Cells Perc 0.0 % (0.0-0.2); Platelet Count Result 362 k/mm3 (150-375); Red Blood Count 4.72 M/mm3 (4.2-5.4); White Blood Count 9.8 K/mm3 (4.5-10.0)
[2025-02-02 16:59] LABS: Add Urine Microscopic? YES; Appearance Urine Cloudy (Clear); Glucose Urine UA Negative (Negative); Leukocyte Esterase Ur 1+ LEU/UL (Negative); Nitrate Urine Negative (Negative); Specific Grav Ur 1.017 (1.001-1.035)
[2025-02-02 17:06] LABS: Alanine Aminotransferase 33 U/L (6-35); Albumin Level 4.8 g/dL (3.5-5.1); Alkaline Phosphatase 61 U/L (38-126); Anion Gap 8 mmol/L (4-12); Aspartate Amino Transferase 38 U/L (14-36); Bilirubin,Total 0.3 mg/dL (0.2-1.3); Blood Urea Nitrogen 15 mg/dL (7-17); Calcium 9.5 mg/dL (8.4-10.2); Carbon Dioxide 25 mmol/L (22-30); Chloride 102 mmol/L (98-107); Estimated Glomerular Filt Rate > 60; Glucose 163 mg/dL (65-110); Potassium 3.6 mmol/L (3.4-5.0); Sodium 135 mmol/L (137-145); Total Protein 8.3 g/dL (6.3-8.2)
--- OUTSIDE RECORDS SUMMARY | 2025-02-02 17:43 | XMS_ITS | Clinical Summary ---
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 Primary Care Provider [phone] Allergies Active Allergy Reactions Criticality Noted Date [...] mg total) by mouth daily Active omega 2-nls-ipa-fish oil 100-160-1,000 mg capsule Take 1,000 mg [...] Type Department Care Team Description 11/17/2024 Telephone [facility] Rheumatology at [address] [place] [id number] Yue Sanders NP Xray Results 08/2024 from Last 3 Months Medical History Medical History Date Comments Diverticulitis Family History Relation Name Status Comments Father Mother Alive Social History Tobacco Use Types Packs/Day Years Used Date Smoking Tobacco: Every Day Cigarettes Tobacco Cessation:Ready to Q uit: Not Asked; Counseling Given: Not Answered [facility] Utilities Answer Date Recorded In the past 12 months has [employer], [employer], oil, or water [employer] threatened to shut off services in your [...] week 06/28/2024 How often do you attend [facility] or yazidi services? 1 to 4 times per year 06/28/2024 Do you belong to any clubs o r organizations such as rastafarian groups, unions, fraternal or athletic groups, or [...] any time in the past [address] [facility], were you homeless or living in a fci (including now)? No 06/28/2024 Personal Safety Answer Date Recorded Have you ever been in or are you currently in a harmful physical or emotional relationship or is someone making you feel afraid or unsafe? 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
== END 2025-02-02 16:28 | disposition home or self-care (01) ==
LOC: ANHLAB 16:28
PROVIDERS: PCP Nurse Practitioner Family; Visit Provider Nurse Practitioner Family
DX: Z01.818 Encounter for other preprocedural examination (principal)
CPT/HCPCS: 36415; 80053; 81001; 85025

== ENCOUNTER 2025-03-21 10:10 | Outpatient (CLI) | payer BC, SELFPAY ==
--- OUTSIDE RECORDS SUMMARY | 2025-03-21 10:40 | XMS_ITS | Clinical Summary ---
Author Organization [facility] Address [address] [place] [address] Care Team Providers Care Delivery Crew Member Name Role Phone Alley [place] PHARMACY MANAGER Primary Care Provider [phone] Allergies Active Allergy Reactions Criticality Noted Date Comments Hydromorphone Nausea only Low 06/24/2024 Medications ondansetron ODT (ZOFRAN-ODT) 4 mg disintegrating tablet Take 1 tablet (4 mg total) by mouth every 8 (eight) hours as needed for nausea or vomiting 20 tablet 12/25/19 24 Active simethicone (MYLICON) 125 mg chewable tablet Take 1 tablet (125 mg total) by mouth daily Active loratadine (CLARITIN) 10 mg tablet Take 1 tablet (10 mg total) by mouth daily Active omega 5-gwm-woo-fish oil 100-160-1,000 mg capsule Take 1,000 mg [...] Take 1 tablet by mouth daily Active loperamide (IMODIUM) 2 mg capsule Take 2 capsules (4 mg total) by mouth 3 (three) times a day as needed for diarrhea 30 capsule 06/30/19 25 Active omeprazole (PriLOSEC) 40 mg capsule Take 1 capsule (40 mg total) by mouth daily 06/23/19 25 Active potassium chloride ER 20 mEq CR tablet Take 1 tablet (20 mEq total) by mouth daily 08/24/19 25 Active albuterol HFA (PROVENTIL HFA,VENTOLIN HFA,PROAIR HFA) 90 mcg/actuation inhaler Inhale 2 puffs every 4 (four) hours as needed for shortness of breath or wheezing 02/08/20 24 Active hydrOXYzine (ATARAX) 50 mg tablet Take 1 tablet (50 mg total) by mouth 2 (two) times a day as needed for anxiety Active spironolactone (ALDACTONE) 25 mg tablet Take 1 tablet (25 mg total) by mouth daily 01/12/20 25 Active SUMAtriptan (IMITREX) 50 mg tablet Take 1 tablet (50 mg total) by mouth once as needed for migraine 01/12/20 25 Active dicyclomine (BENTYL) 20 mg tablet Take 1 tablet (20 mg total) by mouth 2 (two) times a day as needed (cramps) Active cyclobenzaprine (FLEXERIL) 10 mg tablet Take 1 tablet (10 mg total) by mouth 3 (three) times a day as needed for muscle spasms 02/09/[address] (PROTONIX) 40 mg EC tablet Take 1 tablet (40 mg total) by mouth daily 025 Discontin ued(Thera py completed ) dicyclomine (BENTYL) 20 mg tablet Take 1 tablet (20 mg total) by mouth 2 (two) times a day for 20 days 40 tablet 06/30/19 25 025 Discontin ued(Thera py completed ) docusate sodium (COLACE) 100 mg capsule Take 1 capsule (100 mg total) by mouth 2 (two) times a day as needed 02/09/20 25 025 Discontin ued(Thera py completed ) meloxicam (MOBIC) 7.5 mg tablet Take 1 tablet (7.5 mg total) by mouth 2 (two) times a day 025 Discontin ued(Stop Taking at Discharge ) Active Problems Problem Noted Date Diagnosed Date SIRS (systemic inflammatory response syndrome) 1 05/15/2024 Abdominal pain, unspecified abdominal location 1 05/14/2024 Assessment & Plan (03/16/2025 10:49 AM FORMING MILL OPERATOR): -Reports history of IBS and diverticulitis -Pain control -IV fluids -IV Zosyn -GI consulted, appreciate recs -Continue home dicyclomine -Continue home Imodium p.o. -Continue home simethicone -make patient NPO for now, will try clear liquid diet and advance as tolerated 03/15 Pain resolved Tolerated clear liquid diet Advance diet as tolerated No bowel movement since admission 03/16 No more abdominal pain Tolerated regular diet DC abs Sepsis - Meets 2 of 4 SIRS criteria (Tachycardia, and leukocytosis) ; suspected source abdominal -Lactate initially 2.6 -WBC 19.33 -ESR 49 -continuous telemetry monitoring -continuous IV fluids -Started antibiotic therapy in ED with IV Zosyn, continue -monitor VS; notify provider if hemodynamically unstable. -trend Lactate level -CTA abdomen and pelvis with contrast shows: -1. No acute abnormality to explain the patient's symptoms. 2. Nonobstructing 2 mm calculus in the lower pole the right kidney is unchanged. -CXR ordered -UA results indicative of UT. Patient asymptomatic. Specimen also has possibility of contamination. Urine culture pending. -Blood culture pending 03/15 Sepsis ruled out Leucocytosis likely reactive trended to normal No evidence of infection on CT abdomen BC remains negative Will dc abs tomorrow if blood culture remains negative 03/16 Leucocytosis trended to normal BC remains negative DC abs Hypertension, controlled -BP 135/83 -hold home lisinopril/hydrochlorothiazide -Hold home metoprolol XL -Hold home spironolactone 03/15 BP remains soft Continue to hold medications Anxiety Continue home hydroxyzine Hyperlipidemia -continue home rosuvastatin -Check lipid panel Migraine headaches -continue home sumatriptan COPD, not in exacerbation -Continue home albuterol Chronic pain -continue home duloxetine DR -Continue home cyclobenzaprine -Continue home gabapentin Assessment & Plan (03/15/2025 1:44 PM FORMING MILL OPERATOR): -Reports history of IBS and diverticulitis -Pain control -IV fluids -IV Zosyn -GI consulted, appreciate recs -Continue home dicyclomine -Continue home Imodium p.o. -Continue home simethicone -make patient NPO for now, will try clear liquid diet and advance as tolerated 03/15 Pain resolved Tolerated clear liquid diet Advance diet as tolerated No bowel movement since admission Sepsis - Meets 2 of 4 SIRS criteria (Tachycardia, and leukocytosis) ; suspected source abdominal -Lactate initially 2.6 -WBC 19.33 -ESR 49 -continuous telemetry monitoring -continuous IV fluids -Started antibiotic therapy in ED with IV Zosyn, continue -monitor VS; notify provider if hemodynamically unstable. -trend Lactate level -CTA abdomen and pelvis with contrast shows: -1. No acute abnormality to explain the patient's symptoms. 2. Nonobstructing 2 mm calculus in the lower pole the right kidney is unchanged. -CXR ordered -UA results indicative of UT. Patient asymptomatic. Specimen also has possibility of contamination. Urine culture pending. -Blood culture pending 03/15 Sepsis ruled out Leucocytosis likely reactive trended to normal No evidence of infection on CT abdomen BC remains negative Will dc abs tomorrow if blood culture remains negative Hypertension, controlled -BP 135/83 -hold home lisinopril/hydrochlorothiazide -Hold home metoprolol XL -Hold home spironolactone 03/15 BP remains soft Continue to hold medications Anxiety Continue home hydroxyzine Hyperlipidemia -continue home rosuvastatin -Check lipid panel Migraine headaches -continue home sumatriptan COPD, not in exacerbation -Continue home albuterol Chronic pain -continue home duloxetine DR -Continue home cyclobenzaprine -Continue home gabapentin Assessment & Plan (03/14/2025 11:45 AM FORMING MILL OPERATOR): -Reports history of IBS and diverticulitis -Pain control -IV fluids -IV Zosyn -GI consulted, appreciate recs -Continue home dicyclomine -Continue home Imodium p.o. -Continue home simethicone -make patient NPO for now, will try clear liquid diet and advance as tolerated Sepsis - Meets 2 of 4 SIRS criteria (Tachycardia, and leukocytosis) ; suspected source abdominal -Lactate initially 2.6 -WBC 19.33 -ESR 49 -continuous telemetry monitoring -continuous IV fluids -Started antibiotic therapy in ED with IV Zosyn, continue -monitor VS; notify provider if hemodynamically unstable. -trend Lactate level -CTA abdomen and pelvis with contrast shows: -1. No acute abnormality to explain the patient's symptoms. 2. Nonobstructing 2 mm calculus in the lower pole the right kidney is unchanged. -CXR ordered -UA results indicative of UT. Patient asymptomatic. Specimen also has possibility of contamination. Urine culture pending. -Blood culture pending Hypertension, controlled -BP 135/83 -hold home lisinopril/hydrochlorothiazide -Hold home metoprolol XL -Hold home spironolactone Anxiety Continue home hydroxyzine Hyperlipidemia -continue home rosuvastatin -Check lipid panel Migraine headaches -continue home sumatriptan COPD, not in exacerbation -Continue home albuterol Chronic pain -continue home duloxetine DR -Continue home cyclobenzaprine -Continue home gabapentin Diarrhea 06/28/2024 Abdominal pain 06/28/2024 Colitis 06/25/2024 Encounters Date Type Department Care Team Description 03/14/2025 8:35 AM FORMING MILL OPERATOR - 03/16/2025 11:39 AM FORMING MILL OPERATOR Hospital Encounter [place] [address] Med [address] [place] [address] Naldo Hui DO Saturno Arias, Dany Jose, MD Bezuneh, Abraham Deneke, MD SIRS (systemic inflammatory response syndrome) (HCC) (Primary Dx); Abdominal pain, unspecified abdominal location; Acute cystitis with hematuria; Leukocytosis, unspecified type Discharge Disposition: Discharge to home or self care from Last 3 Months Medical History Medical History Date Comments Diverticulitis Family History Relation Name Status Comments Father Mother Alive Social History Tobacco Use Types Packs/Day Years Used Date Smoking Tobacco: Every Day Cigarettes Tobacco Cessation:Ready to Q uit: Not Asked; Counseling Given: Not Answered Social Connection and Isolation Panel Answer Date Recorded In a typical week, how many times do you talk on the phone with family, friends, or neighbors? More than three times a week 06/28/2024 How often do you get togethe r with friends or relatives? More than three times a week 06/28/2024 How often do you attend [facility] [employer] or worship services? 1 to 4 times per year 06/28/2024 Do you belong to any clubs o r organizations such as pentecostal groups, unions, fraternal or athletic groups, or [...] any time in the past 12 m [facility], were you homeless or living in a jail (including now)? No 06/28/2024 Social Connection and Isolation Panel Answer Date Recorded In a typical week, how many times do you talk on the phone with family, friends, or neighbors? More than three times a week 03/16/2025 How often do you get togethe r with friends or relatives? More than three times a week 03/16/2025 How often do you attend chur ch or worship services? 1 to 4 times per year 03/16/2025 Do you belong to any clubs o r organizations such as pentecostal groups, unions, fraternal or athletic groups, or school groups? No 03/16/2025 How often do you attend meet ings of the clubs or organizations you belong to? Never 03/16/2025 Are you , , di vorced, , never , or living with a partner? 03/16/2025 Overall Financial Resource Strain (CARDIA) Answe r Date Recorded How hard is it for you to pa y for the very basics like food, housing, medical care, and heating? Not hard at all 03/16/2025 PRAPARE - Transportation Answer Date Re corded In the past 12 months, has l ack of transportation kept you from medical appointments or from getting medications? No 10/2024 In the past 12 months, has l ack of transportation kept you from meetings, work, or from getting things needed for daily living? No 03/16/2025 [facility] Utilities Answer Date Recorded In the past 12 months has e electric, gas, oil, or water company threatened to shut off services in your home? No 03/16/2025 Personal Safety Answer Date Recorded Have you ever been in or are you currently in a harmful physical or emotional relationship or is someone making you feel afraid or unsafe? Denies 03/14/2025 Comments No Sex and Gender Information Value Date Recorded Sex Assigned at Not on file Legal Sex Female 5:56 PM FORMING MILL OPERATOR Gender Identity Not on file Sexual Orientation Not on file Last Filed Vital Signs Vital Sign Reading Time Taken Comments Blood Pressure 136/79 03/16/2025 8:56 AM FORMING MILL OPERATOR Pulse 80 03/16/2025 8:56 AM FORMING MILL OPERATOR Temperature 36.4 C (97.5 F) 03/16/2025 8:56 AM FORMING MILL OPERATOR Respiratory Rate 18 03/16/2025 8:56 AM FORMING MILL OPERATOR Oxygen Saturation 96% 03/16/2025 8:56 AM FORMING MILL OPERATOR Inhaled Oxygen Concentration - - Weight 71.7 kg (158 lb) 03/14/2025 2:10 PM FORMING MILL OPERATOR Height 157.5 cm (5' 2) 03/14/2025 2:25 PM FORMING MILL OPERATOR Body Mass Index 28.9 03/14/2025 2:10 PM FORMING MILL OPERATOR Plan of Treatment Health Maintenance Due Date Last Done Comments Breast Cancer Screening-Mammogram 1972 Colon Cancer Screening-Colonoscopy 1972 Depression Screening 1972 Hepatitis C Screening 1972 Hepatitis B Screening 02/27/1990 Regular Well Visit/Exam 18-64 02/27/1990 Pneumococcal vaccine <65 (1 of 2 - PCV) 02/27/1991 Zoster Vaccine (1 of 2) 02/27/2022 Influenza Vaccine (#1) 2025 2, 03/26/2021, 02/14/2021, Additional history exists DTaP/Tdap/Td Vaccine (2 - Td or Tdap) 11/13/2029 11/14/2019, 08/18/2007 Procedures Procedure Name Priority Date/Time Associated Diagnosis Comments EGFR Routine 03/15/2025 10:50 AM FORMING MILL OPERATOR DIFFERENTIAL AUTO Routine 03/15/2025 10: 50 AM FORMING MILL OPERATOR COMPREHENSIVE METABOLIC PANEL Routine 03/15/2025 10:50 AM FORMING MILL OPERATOR CBC WITH AUTO DIFFERENTIAL Routine 03/15/2025 10:50 AM FORMING MILL OPERATOR EGFR Routine 03/15/2025 8:22 AM FORMING MILL OPERATOR MAGNESIUM Routine 03/15/2025 8:22 AM FORMING MILL OPERATOR PHOSPHORUS Routine 03/15/2025 8:22 AM FORMING MILL OPERATOR BASIC METABOLIC PANEL Routine 03/15/2025 8:22 AM FORMING MILL OPERATOR LACTATE Routine 03/14/2025 2:59 PM FORMING MILL OPERATOR LIPID PANEL Routine 03/14/2025 2:59 PM FORMING MILL OPERATOR XR CHEST 1 VIEW ED Urgent/IP Urgent 03/14/2025 11:[address] MILL [address] ABDOMEN PELVIS W CONTRAST ED 03/14/2025 9:47 AM FORMING MILL OPERATOR BLOOD CULTURE STAT 03/14/2025 9:22 AM FORMING MILL OPERATOR BLOOD CULTURE STAT 03/14/2025 9:17 AM FORMING MILL OPERATOR POCT HCG, URINE Routine 03/14/2025 8:43 AM FORMING MILL OPERATOR URINALYSIS, MICROSCOPIC ONLY STAT 03/14/2025 8:22 AM FORMING MILL OPERATOR URINE CULTURE STAT 03/14/2025 8:22 AM FORMING MILL OPERATOR URINALYSIS AND REFLEX TO MICROSCOPIC AND CULTURE STAT 03/14/2025 8:22 AM FORMING MILL OPERATOR ERYTHROCYTE SEDIMENTATION RATE STAT 03/14/2025 8:19 AM FORMING MILL OPERATOR CRP (ACUTE PHASE) STAT 03/14/2025 8:1 9 AM FORMING MILL OPERATOR EGFR STAT 03/14/2025 8:19 AM FORMING MILL OPERATOR DIFFERENTIAL AUTO STAT 03/14/2025 8:1 9 AM FORMING MILL OPERATOR LACTATE STAT 03/14/2025 8:19 AM FORMING MILL OPERATOR LIPASE STAT 03/14/2025 8:19 AM FORMING MILL OPERATOR COMPREHENSIVE METABOLIC PANEL STAT 03/14/2025 8:19 AM FORMING MILL OPERATOR CBC WITH AUTO DIFFERENTIAL STAT 03/14/2025 8:19 AM FORMING MILL OPERATOR from Last 3 Months Results * eGFR (03/15/2025 10:50 AM FORMING MILL OPERATOR) eGFR >90 >=60 mL/min/1. 73 m2 Comment: Interpretive Data Reference Interval Normal >/= 90 mL/min/1.73m2 Mildly decreased* 60 - 89 mL/min/1.73m2 Mildly to moderately decreased 45 - 59 mL/min/1.73m2 Moderately to severely decreased 30 - 44 mL/min/1.73m2 Severely decreased 15 - 29 mL/min/1.73m2 Kidney Failure < 15 mL/min/1.73m2 *Relative to young adult level Estimated glomerular filtration rate is determined by the 2020 CKD-EPI equation recommended by the National Kidney Foundation (A Unifying Approach to GFR Estimation: Recommendations of the NKF-ASK Task Force on Reassessing the Inclusion of Race in Diagnosing Kidney Disease, JASN 202). The CKD-EPI equation should not be used for patients with unstable renal function and has not been validated in children and those over 70. Current interpretive data was last reviewed 2021. Testing performed by: [address] [address] Blood 03/15/2025 10:5 0 AM FORMING MILL OPERATOR 03/15/2025 11:05 AM FORMING MILL OPERATOR us Devendra Alexis MD LAB BLOOD ORDERABLES F inal Result [facility] Department [place] [address] * Differential, auto (03/15/2025 10:50 AM FORMING MILL OPERATOR) Neutrophil abs 3.96 1.50 - 6.50 K/cumm Comment:Testing performed by : [address] [address] Imm gran abs 0.03 0.00 - 0.10 K/cumm [facility] Comment:Testing performed by : [address] [address] Lymphocyte abs 2.58 0.80 - 3.30 K/cumm [facility] Comment:Testing performed by : [address] [address] Monocyte abs 0.36 0.20 - 0.80 K/cumm [facility] Comment:Testing performed by : [address] [address] Eosinophil abs 0.37 0.00 - 0.50 K/cumm [facility] Comment:Testing performed by : [address] [address] Basophil abs 0.02 0.00 - 0.10 K/cumm [facility] Comment:Testing performed by : [address] [address] Neutrophil pct 54.1 % [facility] Comment: Interpretive Data Percent cell count reference ranges are not reported, since discordance with absolute values may lead to misinterpretation of CBC data. Current Interpretive Data was last revised on 2017. Testing performed by: [address] [address] Imm gran pct 0.4 % [facility] Comment: Interpretive Data Percent cell count reference ranges are not reported, since discordance with absolute values may lead to misinterpretation of CBC data. Current Interpretive Data was last revised on 2017. Testing performed by: [address] [address] Lymphocyte pct 35.2 % [facility] Comment: Interpretive Data Percent cell count reference ranges are not reported, since discordance with absolute values may lead to misinterpretation of CBC data. Current Interpretive Data was last revised on 2017. Testing performed by: [address] [address] Monocyte pct 4.9 % [facility] Comment: Interpretive Data Percent cell count reference ranges are not reported, since discordance with absolute values may lead to misinterpretation of CBC data. Current Interpretive Data was last revised on 2017. Testing performed by: [address] [address] Eosinophil pct 5.1 % [facility] Comment: Interpretive Data Percent cell count reference ranges are not reported, since discordance with absolute values may lead to misinterpretation of CBC data. Current Interpretive Data was last revised on 2017. Testing performed by: [address] [address] Basophil pct 0.3 % [facility] Comment: Interpretive Data Percent cell count reference ranges are not reported, since discordance with absolute values may lead to misinterpretation of CBC data. Current Interpretive Data was last revised on 2017. Testing performed by: [address] [address] Blood 03/15/2025 10:5 0 AM FORMING MILL OPERATOR 03/15/2025 11:05 AM FORMING MILL OPERATOR Devendra Alexis MD LAB BLOOD ORDERABLES F inal Result [facility] [address] [facility] Department [place] [address] * (ABNORMAL) CBC with auto differential (03/15/2025 10:50 AM FORMING MILL OPERATOR) WBC 7.32 3.80 - 9.90 K/cumm Comment:Testing performed by : [address] [address] Hgb 11.0(L) 11.9 - 15.5 g/dL [facility] Comment: This result has been called to [id number] by [email or web address] on 03/15/2025 11:15:36. Testing performed by: [address] [address] Hct 33.1(L) 35.6 - 45.5 % [facility] Comment:Testing performed by : [address] [address] Plt 226 150 - 400 K/cumm [facility] Comment:Testing performed by : [address] [address] MPV 9.3 9.1 - 12.3 fL [facility] Comment:Testing performed by : [address] [address] RBC 3.58(L) 3.90 - 5.20 M/cumm [facility] Comment:Testing performed by : [address] [address] MCV 92.5 81.3 - 96.4 fL [facility] Comment:Testing performed by : [address] [address] MCH 30.7 27.1 - 33.3 pg [facility] Comment:Testing performed by : [address] [address] MCHC 33.2 32.3 - 35.7 g/dL [facility] Comment:Testing performed by : [address] [address] RDW CV 13.1 11.1 - 14.9 % [facility] Comment:Testing performed by : [address] [address] RDW SD 43.9 35.7 - 48.1 fL [facility] Comment:Testing performed by : [address] [address] NRBC abs 0.00 0.00 - 0.01 K/cumm [facility] Comment:Testing performed by : [address] [address] Blood 03/15/2025 10:5 0 AM FORMING MILL OPERATOR 03/15/2025 11:05 AM FORMING MILL OPERATOR us Devendra Alexis MD LAB BLOOD ORDERABLES F inal Result [facility] Department [place] [address] * (ABNORMAL) Comprehensive metabolic panel (03/15/2025 10:50 AM FORMING MILL OPERATOR) Sodium 135 135 - 145 mmol/L Comment:Testing performed by : [address] [address] Potassium, pl 3.5 3.3 - 4.9 mmol/L [facility] Comment:Testing performed by : [address] [address] Chloride 105 97 - 110 mmol/L [facility] Comment:Testing performed by : [address] [address] CO2 21(L) 22 - 32 mmol/L [facility] Comment:Testing performed by : [address] [address] Anion gap 9 2 - 15 mmol/L [facility] Comment:Testing performed by : [address] [address] BUN 9 6 - 25 mg/dL [facility] Comment:Testing performed by : [address] [address] Creatinine 0.65 0.60 - 1.10 mg/dL [facility] Comment:Testing performed by : [address] [address] Glucose 156 70 - 199 mg/dL [facility] Comment: Interpretive Data Fasting glucose >/= 126 mg/dl is diagnostic for diabetes. Fasting is defined as no caloric intake for at least 8 hours. Fasting glucose between 100 mg/dl to 125 mg/dl is diagnostic of prediabetes. In a patient with classic symptoms of hyperglycemia or hyperglycemic crisis, a random glucose >/= 200 mg/dl is diagnostic for diabetes. In the absence of unequivocal hyperglycemia, results should be confirmed by repeat testing. The classification and Diagnosis of Diabetes Diabetes Care 2021; 46: S19-S40. Current interpretive data was last revised 2022. Testing performed by: [address] [address] Calcium 8.1(L) 8.5 - 10.3 mg/dL [facility] Comment:Testing performed by : [address] [address] Bilirubin, total 0.5 0.1 - 1.2 mg/dL [facility] Comment:Testing performed by : [address] [address] Protein, pl 5.6(L) 6.5 - 8.5 g/dL [facility] Comment:Testing performed by : [address] [address] Albumin 3.6 3.5 - 5.0 g/dL [facility] Comment:Testing performed by : [address] [address] Alk phos 52 40 - 130 Units/L [facility] Comment:Testing performed by : [address] [address] ALT 21 7 - 45 Units/L [facility] Comment:Testing performed by : [address] [address] AST 26 10 - 45 Units/L [facility] Comment:Testing performed by : [address] [address] Blood 03/15/2025 10:5 0 AM FORMING MILL OPERATOR 03/15/2025 11:05 AM FORMING MILL OPERATOR us Devendra Alexis MD LAB BLOOD ORDERABLES F inal Result Performing Organization Address City/[facility]/ZIP Co de Phone Number [facility] [employer] [place] [address] * eGFR (03/15/2025 8:22 AM FORMING MILL OPERATOR) eGFR >90 >=60 mL/min/1. 73 m2 Comment: Interpretive Data Reference Interval Normal >/= 90 mL/min/1.73m2 Mildly decreased* 60 - 89 mL/min/1.73m2 Mildly to moderately decreased 45 - 59 mL/min/1.73m2 Moderately to severely decreased 30 - 44 mL/min/1.73m2 Severely decreased 15 - 29 mL/min/1.73m2 Kidney Failure < 15 mL/min/1.73m2 *Relative to young adult level Estimated glomerular filtration rate is determined by the 2020 CKD-EPI equation recommended by the National Kidney Foundation (A Unifying Approach to GFR Estimation: Recommendations of the NKF-ASK Task Force on Reassessing the Inclusion of Race in Diagnosing Kidney Disease, JASN 2020). The CKD-EPI equation should not be used for patients with unstable renal function and has not been validated in children and those over 70. Current interpretive data was last reviewed 2021. Testing performed by: [address] [address] Blood 03/15/2025 8:22 AM FORMING MILL OPERATOR 03/15/2025 9:04 AM FORMING MILL OPERATOR us Kalin Stubbs MD LAB BLOOD ORDERABLES Final Result [facility] [place] [address] * Phosphorus (03/15/2025 8:22 AM FORMING MILL OPERATOR) Phosphorus, pl 2.4 2.3 - 4.5 mg/dL Comment:Testing performed by : [address] [address] Blood 03/15/2025 8:22 AM FORMING MILL OPERATOR 03/15/2025 9:04 AM FORMING MILL OPERATOR Kalin Stubbs MD LAB BLOOD ORDERABLES Final Result Performing Organization Address City/[facility] Co de Phone Number [id number] [address] * Magnesium (03/15/2025 8:22 AM FORMING MILL OPERATOR) Pathologist [facility] Magnesium 1.7 1.4 - 2.5 mg/dL Comment:Testing performed by : [address] [address] Blood 03/15/2025 8:22 AM FORMING MILL OPERATOR 03/15/2025 9:04 AM FORMING MILL OPERATOR Kalin Stubbs MD LAB BLOOD ORDERABLES Final Result Performing Organization Address [facility] Network/[facility] Co de Phone Number [address] [place] [address] * (ABNORMAL) Basic metabolic panel (03/15/2025 8:22 AM FORMING MILL OPERATOR) Pathologist [facility] Sodium 137 135 - 145 mmol/L Comment:Testing performed by : [address] [address] Potassium, pl 3.5 3.3 - 4.9 mmol/L [place] Comment:Testing performed by : [address] [address] Chloride 107 97 - 110 mmol/L [place] Comment:Testing performed by : [address] [address] CO2 23 22 - 32 mmol/L [place] Comment:Testing performed by : [address] [address] Anion gap 7 2 - 15 mmol/L [place] Comment:Testing performed by : [address] [address] BUN 9 6 - 25 mg/dL [place] Comment:Testing performed by : [address] [address] Creatinine 0.62 0.60 - 1.10 mg/dL [place] Comment:Testing performed by : [address] [address] Glucose 99 70 - 199 mg/dL [place] Comment: Interpretive Data Fasting glucose >/= 126 mg/dl is diagnostic for diabetes. Fasting is defined as no caloric intake for at least 8 hours. Fasting glucose between 100 mg/dl to 125 mg/dl is diagnostic of prediabetes. In a patient with classic symptoms of hyperglycemia or hyperglycemic crisis, a random glucose >/= 200 mg/dl is diagnostic for diabetes. In the absence of unequivocal hyperglycemia, results should be confirmed by repeat testing. The classification and Diagnosis of Diabetes Diabetes Care 202; 46: S19-S40. Current interpretive data was last revised 2022. Testing performed by: [address] [address] Calcium 8.2(L) 8.5 - 10.3 mg/dL [place] Comment:Testing performed by : [address] [address] Blood 03/15/2025 8:22 AM FORMING MILL OPERATOR 03/15/2025 9:04 AM FORMING MILL OPERATOR us Kalin Stubbs MD LAB BLOOD ORDERABLES Final Result Performing Organization Address [facility] de Phone Number [facility] [address] [facility] Department [place] [address] * (ABNORMAL) Lactate (03/14/2025 2:59 PM FORMING MILL OPERATOR) [facility] Lactate 2.2(H) 0.7 - 2.0 mmol/L Comment:Testing performed by : [address] [address] Blood 03/14/2025 2:59 PM FORMING MILL OPERATOR 03/14/2025 3:09 PM FORMING MILL OPERATOR us Lilia Rosado NP LAB BLOOD ORDERABLES Final R esult Performing Organization Address City/[facility] Co de Phone Number [facility] [address] [facility] Department [place] [address] * (ABNORMAL) Lipid panel (03/14/2025 2:59 PM FORMING MILL OPERATOR) Cholesterol 175 30 - 199 mg/dL Comment: Interpretive Data Ages < or = 19 years Acceptable: <170 mg/dL Borderline high: 170-199 mg/dL High: >or= 200 mg/dL Ages > or = 20 years Desirable: <200 mg/dL Borderline high: 200-239 mg/dL High: >or= 240 mg/dL Literature References: 1. Expert Panel on Integrated Guidelines for Cardiovascular Health and Risk Reduction in Children and Adolescents. Pediatrics 2011;128:S213 2. NCEP Expert Panel. Circulation 2004;110:227 Current Interpretive Data was last revised on 2017. Testing performed by: [address] [address] Triglycerides 355(H) <=149 mg/dL [place] Comment: Interpretive Data Ages < or = 9 years Acceptable: <75 mg/dL Borderline high: 75-99 mg/dL High: >or= 100 mg/dL Ages 10 to 20 years Acceptable: <90 mg/dL Borderline high: 90-129 mg/dL High: >or= 130 mg/dL Ages > or = 20 years Desirable: <150 mg/dL Borderline high: 150-199 mg/dL High: 200-499 mg/dL Very high: >or= 499 mg/dL Literature References: 1. Expert Panel on Integrated Guidelines for Cardiovascular Health and Risk Reduction in Children and Adolescents. Pediatrics 2011;128:S213 2. NCEP Expert Panel. Circulation 2004;110:227 Current Interpretive Data was last revised on 2017. Testing performed by: [address] [address] HDL 44 >=40 mg/dL [place] Comment: Interpretive Data Ages < or = 19 years Acceptable: >45 mg/dL Borderline low: 40-45 mg/dL Low: <40 mg/dL Ages > or = 20 years Desirable: >or= 60 mg/dL Low: <40 mg/dL Literature References: 1. Expert Panel on Integrated Guidelines for Cardiovascular Health and Risk Reduction in Children and Adolescents. Pediatrics 2011;128:S213 2. NCEP Expert Panel. Circulation 2004;110:227 Current Interpretive Data was last revised on 2017. Testing performed by: [address] [address] LDL, calculated 74 <=129 mg/dL [place] Comment: Interpretive Data Ages < or = 19 years Acceptable: <110 mg/dL Borderline high: 110-129 mg/dL High: >or= 130 mg/dL Ages > or = 20 years Optimal: <100 mg/dL Near optimal: 100-129 mg/dL Borderline high: 130-159 mg/dL High: >160 mg/dL Calculated using the Bulmaro LDL-C estimating equation. This equation was implemented on 2023. Prior to this date LDL-C was estimated using the Friedewald equation. Literature References: 1. Expert Panel on Integrated Guidelines for Cardiovascular Health and Risk Reduction in Children and Adolescents. Pediatrics 2011;128:S213 2. NCEP Expert Panel. Circulation 2004;110:227 3. Bulmaro Pino et al. LISS Cardiol. 2020 September 08;5(5):540-548. doi: 10.1001/jamacardio.2020.0013 Current Interpretive Data was last revised on 2023. Testing performed by: [address] [address] Non-HDL Cholesterol 131 mg/dL [place] Comment: Interpretive Data Ages < or = 19 years Acceptable: <120 mg/dL Borderline high: 120-144 mg/dL High: >145 mg/dL Ages > or = 20 years When triglycerides are >200 mg/dL, Non-HDL cholesterol is a secondary target of therapy with treatment goals that are 30 mg/dL greater than the LDL cholesterol target. Literature References: 1. Expert Panel on Integrated Guidelines for Cardiovascular Health and Risk Reduction in Children and Adolescents. Pediatrics 2011;128:S213 2. NCEP Expert Panel. Circulation 2004;110:227 Current Interpretive Data was last revised on 2017. Testing performed by: [address] [address] Chol/HDL ratio 4 [place] Comment:Testing performed by : [address] [address] Blood 03/14/2025 2:59 PM FORMING MILL OPERATOR 03/14/2025 3:09 PM FORMING MILL OPERATOR us Lilia Rosado PHARMACY MANAGER LAB BLOOD ORDERABLES Final R esult [facility] [address] [facility] Department [place] [address] * XR Chest 1 View (03/14/2025 11:48 AM FORMING MILL OPERATOR) Anatomical Region Laterality Modality Body, Chest N/A Computed Radiogr aphy 03/14/2025 11:5 2 AM FORMING MILL OPERATOR Impressions 03/14/2025 11:52 AM FORMING MILL OPERATOR Minimal right basilar atelectasis. Otherwise negative chest. Electronically signed by: Martínez Ornelas M.D. Narrative 03/14/2025 11:52 AM FORMING MILL OPERATOR EXAM DESCRIPTION: XR CHEST 1 VIEW REASON FOR STUDY: general weakness TECHNIQUE: XR CHEST 1 VIEW COMPARISON: 06/25/2024. FINDINGS: Reticular opacities right base. Lungs are clear with no focal consolidation. No pleural effusion or pneumothorax. Cardiac and mediastinal silhouette normal. No acute osseous abnormality. ? Procedure Note Martínez Ornelas MD - 03/14/2025 EXAM DESCRIPTION: XR CHEST 1 VIEW REASON FOR STUDY: general weakness TECHNIQUE: XR CHEST 1 VIEW COMPARISON: 06/25/2024. FINDINGS: Reticular opacities right base. Lungs are clear with no focal consolidation. No pleural effusion or pneumothorax. Cardiac and mediastinal silhouette normal. No acute osseous abnormality. ? IMPRESSION: Minimal right basilar atelectasis. Otherwise negative chest. Electronically signed by: Martínez Ornelas M.D. us Lilia Rosado PHARMACY MANAGER IMG XR PROCEDURES Final Resu lt * CT Abdomen Pelvis W Contrast (03/14/2025 9:47 AM FORMING MILL OPERATOR) Anatomical Region Laterality Modality Body N/A Computed Tomogra phy 03/14/2025 10:0 2 AM FORMING MILL OPERATOR Impressions 03/14/2025 10:02 AM FORMING MILL OPERATOR 1. No acute abnormality to explain the patient's symptoms. 2. Nonobstructing 2 mm calculus in the lower pole the right kidney is unchanged. Electronically signed by: Akbar Pantoja M.D. Narrative 03/14/2025 10:02 AM FORMING MILL OPERATOR EXAMINATION: CT ABDOMEN PELVIS W CONTRAST HISTORY: Abdominal pain. TECHNIQUE: Transaxial computed tomographic images of the abdomen and pelvis were obtained with intravenous contrast according to the standard protocol. COMPARISON: CT abdomen and pelvis 06/27/2024, 12/25/2023 FINDINGS: LOWER CHEST: No significant pulmonary abnormalities. No pleural effusion. LIVER: Low-attenuation 7 mm lesion in the posterior right hepatic lobe is unchanged from 2023 likely a cyst or hemangioma. GALLBLADDER: Prior cholecystectomy. BILE DUCTS: No intrahepatic or extrahepatic ductal dilatation. SPLEEN: Normal size. No focal lesions. PANCREAS: No masses. No adjacent inflammation or peripancreatic fluid collections. No pancreatic ductal dilatation. ADRENALS: Normal. KIDNEYS/URINARY TRACT: No identified significant cystic or solid masses. Nonobstructing 2 mm calculus in the lower pole of the right kidney is unchanged. No hydronephrosis or hydroureter. Symmetric nephrograms. Urinary bladder is unremarkable. GI: No dilated bowel loops. No obvious wall thickening. Normal appendix. No significant diverticular disease. PERITONEUM: No ascites or free air. RETROPERITONEUM: No mass or lymphadenopathy. REPRODUCTIVE: No significant abnormality. VASCULATURE: No abdominal aortic aneurysm. Circumaortic left renal vein. MUSCULOSKELETAL: Screw fixation of the sacroiliac joints. Minimal thoracolumbar spondylosis. OTHER: No other abnormality. Procedure Note Akbar Pantoja MD - 03/14/2025 EXAMINATION: CT ABDOMEN PELVIS W CONTRAST HISTORY: Abdominal pain. TECHNIQUE: Transaxial computed tomographic images of the abdomen and pelvis were obtained with intravenous contrast according to the standard protocol. COMPARISON: CT abdomen and pelvis 06/27/2024, 12/25/2023 FINDINGS: LOWER CHEST: No significant pulmonary abnormalities. No pleural effusion. LIVER: Low-attenuation 7 mm lesion in the posterior right hepatic lobe is unchanged from 2023 likely a cyst or hemangioma. GALLBLADDER: Prior cholecystectomy. BILE DUCTS: No intrahepatic or extrahepatic ductal dilatation. SPLEEN: Normal size. No focal lesions. PANCREAS: No masses. No adjacent inflammation or peripancreatic fluid collections. No pancreatic ductal dilatation. ADRENALS: Normal. KIDNEYS/URINARY TRACT: No identified significant cystic or solid masses. Nonobstructing 2 mm calculus in the lower pole of the right kidney is unchanged. No hydronephrosis or hydroureter. Symmetric nephrograms. Urinary bladder is unremarkable. GI: No dilated bowel loops. No obvious wall thickening. Normal appendix. No significant diverticular disease. PERITONEUM: No ascites or free air. RETROPERITONEUM: No mass or lymphadenopathy. REPRODUCTIVE: No significant abnormality. VASCULATURE: No abdominal aortic aneurysm. Circumaortic left renal vein. MUSCULOSKELETAL: Screw fixation of the sacroiliac joints. Minimal thoracolumbar spondylosis. OTHER: No other abnormality. IMPRESSION: 1. No acute abnormality to explain the patient's symptoms. 2. Nonobstructing 2 mm calculus in the lower pole the right kidney is unchanged. Electronically signed by: Akbar Pantoja M.D. Naldo Hui DO IMG CT PROCEDURES Final Result * Blood culture Blood (03/14/2025 9:22 AM FORMING MILL OPERATOR) Report Final Report: No growth Comment:Testing performed by : [facility], [address] [place] [address] Blood 03/14/2025 9:22 AM FORMING MILL OPERATOR 03/14/2025 1:48 PM FORMING MILL OPERATOR [facility] [place] - 03/18/2025 4:00 PM FORMING MILL OPERATOR Collection->Peripheral 1. Blood cultures are incubated for 4 days on a continuously monitored blood culture system. The first report of a negative culture is issued within 24 hours of receipt of the specimen in the laboratory. 2. Positive culture results are reported as soon as they are detected. 3. The most important factor for detection of microbes in the setting of bloodstream infection is the volume of blood submitted for culture. Failure to collect an optimal blood volume can result in false negative blood cultures. 4. For pediatric patients, the recommended blood volume to collect follows a weight based strategy. See the electronic test catalog for collection instructions. 5. For positive blood cultures, a rapid molecular test may be performed for organism identification using the abhishek ePlex blood culture identification panel for gram positive (BCID-GP) and gram negative (BCID-GN) organisms. This nucleic acid amplification test detects microbial DNA in positive blood culture broth. This assay has been cleared by the [place] Food and Drug Administration and its performance characteristics have been verified by the [facility] Microbiology Laboratory. For questions about this culture, contact the Microbiology Laboratory at [phone]. Interpretive data was last revised on 24. Naldo Hui DO LAB MICROBIOLOGY - GENERAL ORD ERABLES Final Result [facility] [address] [facility] Department [place] [address] * Blood culture Blood (03/14/2025 9:17 AM FORMING MILL OPERATOR) Report Final Report: No growth Comment:Testing performed by : [facility], [address] [place]., [address] Blood 03/14/2025 9:17 AM FORMING MILL OPERATOR 03/14/2025 1:48 PM FORMING MILL OPERATOR Narrative [facility] - 03/18/2025 4:00 PM FORMING MILL OPERATOR Collection->Peripheral 1. Blood cultures are incubated for 4 days on a continuously monitored blood culture system. The first report of a negative culture is issued within 24 hours of receipt of the specimen in the laboratory. 2. Positive culture results are reported as soon as they are detected. 3. The most important factor for detection of microbes in the setting of bloodstream infection is the volume of blood submitted for culture. Failure to collect an optimal blood volume can result in false negative blood cultures. 4. For pediatric patients, the recommended blood volume to collect follows a weight based strategy. See the electronic test catalog for collection instructions. 5. For positive blood cultures, a rapid molecular test may be performed for organism identification using the abhishek ePlex blood culture identification panel for gram positive (BCID-GP) and gram negative (BCID-GN) organisms. This nucleic acid amplification test detects microbial DNA in positive blood culture broth. This assay has been cleared by the [place] Food and Drug Administration and its performance characteristics have been verified by the [facility]biology Laboratory. For questions about this culture, contact the Microbiology Laboratory at [phone]. Interpretive data was last revised on 24. us Naldo Hui DO LAB MICROBIOLOGY - GENERAL ORD ERABLES Final Result Performing Organization Address City/[facility]/ZIP Co de Phone Number [facility] [place] [address] * POCT hCG, urine (03/14/2025 8:43 AM FORMING MILL OPERATOR) HCG, ur, POC Negative Negative Comment:Testing performed by : [address] [address] Urine 03/14/2025 8:43 AM FORMING MILL OPERATOR 03/14/2025 8:43 AM FORMING MILL OPERATOR Notinfile Unknown LAB POCT ORDERABLES - DEVICE F inal Result Performing Organization Address [facility] Co de Phone Number B[place] [address] [address] * (ABNORMAL) Urinalysis reflex to microscopic and culture Urine (03/14/2025 8:22 AM FORMING MILL OPERATOR) Color, ur Yellow Yellow Comment:Testing performed by : [address] [address] Clarity, ur Cloudy(A) Clear [place] Comment:Testing performed by : [address] [address] Specific gravity, ur 1.015 1.003 - 1.030 [place] Comment:Testing performed by : [address] [address] pH, urine 6.0 [place] Comment: Interpretive Data U rine pH is affected by diet, medications, systemic acid-base disturbances, and renal tubular function. pH may affect urinary stone formation. For example, urine pH below 6.0 may help reduce the tendency for calcium phosphate stones and pH greater than 6.0 may reduce the tendency for uric acid stone formation. Source: [facility] [employer] Current Interpretive Data was last revised on 2017 Testing performed by: [address] [place] [address] Protein, ur ql Negative Negative [place] Comment:Testing performed by : [address], [place]., [address] Glucose, ur ql Negative Negative [place] Comment:Testing performed by : [address], [place]., [address] Ketones, ur Negative Negative [place] Comment:Testing performed by : [address], [place]., [address] Bilirubin, ur Negative Negative [place] Comment:Testing performed by : [address], [place]., [address] Blood, ur Negative Negative [place] Comment:Testing performed by : [address], [place]., [address] Urobilinogen, ur <2.0 <2.0 mg/dL [place] Comment:Testing performed by : [address], [place]., [address] Nitrite, ur Negative Negative [place] Comment:Testing performed by : [address], [place]., [address] Leukocyte esterase, ur 3+(A) Negative [place] Comment:Testing performed by : [address] [address] UA reflex comment Reflex to microscopic UA will be performed. [place] Comment:Testing performed by : [address], [place]., [address] Urine 03/14/2025 8:22 AM FORMING MILL OPERATOR 03/14/2025 8:29 AM FORMING MILL OPERATOR us Naldo Hui DO LAB MICROBIOLOGY - GENERAL ORD ERABLES Final Result [facility] [address] [facility] Department [place] [address] * (ABNORMAL) Urinalysis, microscopic only (03/14/2025 8:22 AM FORMING MILL OPERATOR) WBC, ur 11-20(A) 0 - 5 /HPF Comment:Testing performed by : [address] [address] RBC, ur 0-2 0 - 2 /HPF [place] Comment:Testing performed by : [address] [address] Epithelial cells, squamous, ur >50(A) 0 - 5 /HPF [place] Comment:Testing performed by : [address] [address] Bacteria, ur 2+(A) [place] Comment:Testing performed by : [address] [address] Mucous, ur Present(A) [place] Comment:Testing performed by : [address] [address] Hyaline casts, ur 1-5 0 - 10 /LPF [place] Comment:Testing performed by : [address] [address] Culture Reflex Comment Reflex to urine culture will be performed. [place] Comment:Testing performed by : [address] [address] Urine 03/14/2025 8:22 AM FORMING MILL OPERATOR 03/14/2025 8:29 AM FORMING MILL OPERATOR Naldo Hui DO LAB URINE ORDERABLES Final Res ult [facility] HENDR[facility] Department of Laboratories [place], [place] [id number] * Urine culture Urine (03/14/2025 8:22 AM FORMING MILL OPERATOR) Report Final Report: Less than 100,000 colonies/mL (clinically insignificant growth based on current clinical standards) Comment:Testing performed by : [facility], [address] [place] [address] Organism (CLINICALLY INSIGNIFICANT GROWTH [facility] HENDRICKS Urine 03/14/2025 8:22 AM FORMING MILL OPERATOR 03/14/2025 1:48 PM FORMING MILL OPERATOR Narrative BONTIA HENDRICKS - 03/15/2025 2:37 PM FORMING MILL OPERATOR Urine culture reflexed based upon urinalysis results. Testing performed by [facility] Microbiology Laboratory ([phone]) [email or web address] LAB MICROBIOLOGY - GENERAL ORD ERABLES Final Result Performing Organization Address City/[facility]/ZIP Co de Phone Number [facility] [place] [address] * (ABNORMAL) Lactate (03/14/2025 8:19 AM FORMING MILL OPERATOR) Lactate 2.6(H) 0.7 - 2.0 mmol/L Comment:Testing performed by : [facility], [address] [place] [address]., [address] Blood 03/14/2025 8:19 AM FORMING MILL OPERATOR 03/14/2025 8:28 AM FORMING MILL OPERATOR [email or web address] DO LAB BLOOD ORDERABLES Final Res ult Performing Organization Address [facility] Co de Phone Number [facility] [place] [address] * eGFR (03/14/2025 8:19 AM FORMING MILL OPERATOR) eGFR >90 >=60 mL/min/1. 73 m2 Comment: Interpretive Data Reference Interval Normal >/= 90 mL/min/1.73m2 Mildly decreased* 60 - 89 mL/min/1.73m2 Mildly to moderately decreased 45 - 59 mL/min/1.73m2 Moderately to severely decreased 30 - 44 mL/min/1.73m2 Severely decreased 15 - 29 mL/min/1.73m2 Kidney Failure < 15 mL/min/1.73m2 *Relative to young adult level Estimated glomerular filtration rate is determined by the 2020 CKD-EPI equation recommended by the National Kidney Foundation (A Unifying Approach to GFR Estimation: Recommendations of the NKF-ASK Task Force on Reassessing the Inclusion of Race in Diagnosing Kidney Disease, JASN 202). The CKD-EPI equation should not be used for patients with unstable renal function and has not been validated in children and those over 70. Current interpretive data was last reviewed 2021. Testing performed by: [address] [address] Blood 03/14/2025 8:19 AM FORMING MILL OPERATOR 03/14/2025 8:28 AM FORMING MILL OPERATOR us Naldo Hui DO LAB BLOOD ORDERABLES Final Res ult [facility] [address] [facility] Department [place] [address] * (ABNORMAL) Differential, auto (03/14/2025 8:19 AM FORMING MILL OPERATOR) Neutrophil abs 14.29(H) 1.50 - 6.50 K/cumm Comment:Testing performed by : [address] [address] Imm gran abs 0.07 0.00 - 0.10 K/cumm [place] Comment:Testing performed by : [address] [address] Lymphocyte abs 3.97(H) 0.80 - 3.30 K/cumm [place] Comment:Testing performed by : [address] [address] Monocyte abs 0.69 0.20 - 0.80 K/cumm [place] Comment:Testing performed by : [address] [address] Eosinophil abs 0.24 0.00 - 0.50 K/cumm [place] Comment:Testing performed by : [address] [address] Basophil abs 0.07 0.00 - 0.10 K/cumm [place] Comment:Testing performed by : [address] [address] Neutrophil pct 73.9 % [place] Comment: Interpretive Data Percent cell count reference ranges are not reported, since discordance with absolute values may lead to misinterpretation of CBC data. Current Interpretive Data was last revised on 2017. Testing performed by: [address] [address] Imm gran pct 0.4 % [place] Comment: Interpretive Data Percent cell count reference ranges are not reported, since discordance with absolute values may lead to misinterpretation of CBC data. Current Interpretive Data was last revised on 2017. Testing performed by: [address] [address] Lymphocyte pct 20.5 % [facility] Comment: Interpretive Data Percent cell count reference ranges are not reported, since discordance with absolute values may lead to misinterpretation of CBC data. Current Interpretive Data was last revised on 2017. Testing performed by: [address] [address] Monocyte pct 3.6 % [facility] Comment: Interpretive Data Percent cell count reference ranges are not reported, since discordance with absolute values may lead to misinterpretation of CBC data. Current Interpretive Data was last revised on 2017. Testing performed by: [address] [address] Eosinophil pct 1.2 % [facility] Comment: Interpretive Data Percent cell count reference ranges are not reported, since discordance with absolute values may lead to misinterpretation of CBC data. Current Interpretive Data was last revised on 2017. Testing performed by: [address] [address] Basophil pct 0.4 % [facility] Comment: Interpretive Data Percent cell count reference ranges are not reported, since discordance with absolute values may lead to misinterpretation of CBC data. Current Interpretive Data was last revised on 2017. Testing performed by: [address] [address] Blood 03/14/2025 8:19 AM FORMING MILL OPERATOR 03/14/2025 8:28 AM FORMING MILL OPERATOR us Naldo Hui DO LAB BLOOD ORDERABLES Final Res ult [facility] HENDRIC[facility] [address] [facility] Department [place] [address] * (ABNORMAL) CBC with auto differential (03/14/2025 8:19 AM FORMING MILL OPERATOR) WBC 19.33(H) 3.80 - 9.90 K/cumm Comment:Testing performed by : [address] [address] Hgb 14.5 11.9 - 15.5 g/dL [place] Comment:Testing performed by : [address] [address] Hct 42.3 35.6 - 45.5 % [place] Comment:Testing performed by : [address] [address] Plt 358 150 - 400 K/cumm BONITA Comment:Testing performed by : [address] [address] MPV 9.4 9.1 - 12.3 fL BONITA Comment:Testing performed by : [address] [address] RBC 4.69 3.90 - 5.20 M/cumm BONITA Comment:Testing performed by : [address] [address] MCV 90.2 81.3 - 96.4 fL [facility] Comment:Testing performed by : [address] [address] MCH 30.9 27.1 - 33.3 pg B[facility]ITA Comment:Testing performed by : [address] [address] MCHC 34.3 32.3 - 35.7 g/dL BONITA Comment:Testing performed by : [address] [address] RDW CV 13.2 11.1 - 14.9 % BONITA Comment:Testing performed by : [address] [address] RDW SD 43.3 35.7 - 48.1 fL [facility] Comment:Testing performed by : [address] [address] NRBC abs 0.00 0.00 - 0.01 K/cumm BONITA Comment:Testing performed by : [address] [address] Blood Venous blood specimen / Unknown 03/14/2025 8:19 AM FORMING MILL OPERATOR 03/14/2025 8:28 AM FORMING MILL OPERATOR us Naldo Hui DO LAB BLOOD ORDERABLES Final Res ult Performing Organization Address [facility] de Phone Number BONITA [address] [address] * (ABNORMAL) Erythrocyte sedimentation rate (03/14/2025 8:19 AM FORMING MILL OPERATOR) Pathologist [facility] Erythrocyte sedimentation rate 49(H) 1 - 30 mm/hr Comment:Testing performed by : [address] [address] Blood 03/14/2025 8:19 AM FORMING MILL OPERATOR 03/14/2025 8:28 AM FORMING MILL OPERATOR us Naldo Hui DO LAB BLOOD ORDERABLES Final Res ult Performing Organization Address [facility] de Phone Number BONITA [address] [address] * CRP (acute phase) (03/14/2025 8:19 AM FORMING MILL OPERATOR) Pathologist [facility] CRP 6.5 <=10.0 mg/L Comment:Testing performed by : [address] [address] Blood 03/14/2025 8:19 AM FORMING MILL OPERATOR 03/14/2025 8:28 AM FORMING MILL OPERATOR Naldo Hui DO LAB BLOOD ORDERABLES Final Res ult Performing Organization Address [facility] de Phone Number BONITA [address] [address] * Lipase (03/14/2025 8:19 AM FORMING MILL OPERATOR) Pathologist [facility] Lipase 43 10 - 99 Units/L Comment:Testing performed by : [address] [address] Blood Venous blood specimen / Unknown 03/14/2025 8:19 AM 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 Suggest redraw and reanalysis. Testing performed by: [address] [address] Chloride 98 97 - 110 mmol/L B[facility]ITA Comment:Testing performed by : [address] [address] CO2 22 22 - 32 mmol/L BONITA Comment:Testing performed by : [address] [address] Anion gap 16(H) 2 - 15 mmol/L [facility] Comment:Testing performed by : [address] [address] BUN 14 6 - 25 mg/dL [facility] Comment:Testing performed by : [address] [address] Creatinine 0.61 0.60 - 1.10 mg/dL [facility] Comment:Testing performed by : [address] [address] Glucose 156 70 - 199 mg/dL BONITA Comment: Interpretive Data Fasting glucose >/= 126 mg/dl is diagnostic for diabetes. Fasting is defined as no caloric intake for at least 8 hours. Fasting glucose between 100 mg/dl to 125 mg/dl is diagnostic of prediabetes. In a patient with classic symptoms of hyperglycemia or hyperglycemic crisis, a random glucose >/= 200 mg/dl is diagnostic for diabetes. In the absence of unequivocal hyperglycemia, results should be confirmed by repeat testing. The classification and Diagnosis of Diabetes Diabetes Care 202; 46: S19-S40. Current interpretive data was last revised 2022. Testing performed by: [address] [address] Calcium 10.1 8.5 - 10.3 mg/dL OBNITA Comment:Testing performed by : [address] [address] Bilirubin, total 0.3 0.1 - 1.2 mg/dL B[facility]ITA Comment:Testing performed by : [address] [address] Protein, pl 7.1 6.5 - 8.5 g/dL B[facility] Comment:Testing performed by : [address], [place]., [address] Albumin 4.4 3.5 - 5.0 g/dL BONITA Comment:Testing performed by : [address] [address] Alk phos 69 40 - 130 Units/L B[facility] Comment:Testing performed by : [address] [address] ALT 28 7 - 45 Units/L B[facility]ITA Comment:Testing performed by : [address] [address] AST 28 10 - 45 Units/L BONITA Comment: Hemolyzed; result may be falsely elevated Testing performed by: [address] [address] Blood 03/14/2025 8:19 AM FORMING MILL OPERATOR 03/14/2025 8:28 AM FORMING MILL OPERATOR us Naldo Hui DO LAB BLOOD ORDERABLES Final Res ult B[facility]ITA [facility]DR[facility] [address] [facility] Department [place] [address] from Last 3 Months Insurance ANTHEM ACCESS CHOICE ANTHEM ACCESS CHOICE Advance Directives For more information, please contact: [phone] * Full Code (Latest Code Status on File) Date Activated Date Inactivated Comments 03/14/2025 11:44 AM 03/16/2025 3:45 PM * Full Code Date Activated Date Inactivated Comments 06/25/2024 3:00 AM 06/30/2024 6:30 PM Care Teams Delivery Crew Member Relationship Specialty Start Date End Date Alley [place] NP [address] [place] [address] PCP - General Nurse Practitioner 11/17/24
[2025-03-21 11:25] LABS: Hematocrit 38.1 % (37.0-47.0); Hemoglobin 12.3 g/dL (12.0-15.0); Immature Granulocyte Percent A 0.6 % (0-0.5); Lymphocytes Absolute Auto 3.23 K/mm3 (0.9-3.2); Mean Corpuscular HGB Conc 32.3 g/dl (32-36); Mean Corpuscular Hemoglobin 30.8 pg (26-34); Mean Corpuscular Volume 95.5 fl (80-100); Nucleated Red Blood Cells Absolute Auto 0.000 K/mm3 (0.0-0.012); Nucleated Red Blood Cells Perc 0.0 % (0.0-0.2); Platelet Count Result 311 k/mm3 (150-375); Red Blood Count 3.99 M/mm3 (4.2-5.4); White Blood Count 10.7 K/mm3 (4.5-10.0)
[2025-03-21 11:38] LABS: Add Urine Microscopic? YES; Appearance Urine Clear (Clear); Glucose Urine UA Negative (Negative); Leukocyte Esterase Ur Trace LEU/UL (Negative); Nitrate Urine Negative (Negative); Non Pathogenic Casts 0-2; Specific Grav Ur 1.011 (1.001-1.035)
[2025-03-21 11:49] LABS: Alanine Aminotransferase 29 U/L (6-35); Albumin Level 4.6 g/dL (3.5-5.1); Alkaline Phosphatase 58 U/L (38-126); Anion Gap 8 mmol/L (4-12); Aspartate Amino Transferase 32 U/L (14-36); Bilirubin,Total 0.5 mg/dL (0.2-1.3); Blood Urea Nitrogen 10 mg/dL (7-17); Calcium 9.4 mg/dL (8.4-10.2); Carbon Dioxide 30 mmol/L (22-30); Chloride 98 mmol/L (98-107); Estimated Glomerular Filt Rate > 60; Glucose 96 mg/dL (65-110); Potassium 3.6 mmol/L (3.4-5.0); Sodium 136 mmol/L (137-145); Total Protein 7.5 g/dL (6.3-8.2)
[2025-03-21 12:40] LABS: Hemoglobin A1C 6.3 % (<5.7)
[2025-03-21 18:08] LABS: Thyroid Stimulating Hormone Reflex 8.600 uIU/mL (0.465-4.68)
[2025-03-21 20:44] LABS: Free T4 Free Thyroxine Reflex 0.60 ng/dL (0.78-2.19)
[2025-03-22 11:09] LABS: FSH 13.9 mIU/mL (.)
[2025-03-24 06:08] LABS: Free Testosterone (Direct) <0.2 pg/mL (0.0-4.2)
[2025-03-26 09:08] LABS: Estradiol, Sensitive 177.9 pg/mL (.)
== END 2025-03-21 10:11 | disposition home or self-care (01) ==
LOC: ANHLAB 10:11
PROVIDERS: PCP Nurse Practitioner Family; Visit Provider Nurse Practitioner Family
DX: N95.1 Menopausal and female climacteric states (principal); R23.2 Flushing; Z09 Encounter for follow-up examination after completed treatment for conditions other than malignant neoplasm
CPT/HCPCS: 36415; 80053; 81001; 82670; 83001; 83036; 84402; 84403; 84439; 84443; 85025; 87086